=== PATIENT | female | born 1995 | race African-American/Black ===

== ENCOUNTER 2020-02-13 09:18 | Inpatient (IN) ==
[2020-02-13] MEDS ORDERED: OXYTOCIN 30 UNITS/500 ML BAG IV PRN ×2 (10:22→18:12)
--- NOTE | 2020-02-13 10:37 | Obstetrical Progress Note ---
Date of Service February 13, 2020 Subjective Admit Note 24 F P0010 at 38.1 weeks admitted with SROM at 0500 this AM with clear fluid confirmed with Amnisure and Nitrazine. Cervix 2/50/-2/vertex/anterior/firm. FHT Cat 1. GBS is positive with no allergies to PCN. EFW 7.5 lbs. Will start PCN when in active labor. Plans unmedicated labor at this time. Will ambulate this time. Results & Data ([facility]) Vital Signs (Past 12 Hours) Vital Signs Temp Pulse Resp BP 02/13/20 09:28 37.1 C 20 02/13/20 09:26 74 131/79
[2020-02-13 10:45] LABS: Hematocrit (blood only) 28.3 % (37-47); Hemoglobin 9.8 g/dL (12.0-16.0); Mean Corpuscular Hemoglobin 27.6 pg (25-34); Mean Corpuscular Volume 79.7 fL (80-100); Mean Platelet Volume 9.1 fL (7.4-10.4); Platelet Count 234 K/uL (130-400); RDW Coefficient of Variation 14.2 % (11.5-14.5); RDW Standard Deviation 40.9 fL (36.4-46.3); Red Blood Count 3.55 M/uL (4.2-5.4); White Blood Count 6.27 K/uL (4.8-10.8)
[2020-02-13] MEDS ORDERED: PENICILLIN G POTASSIUM 6 MU in DEXTROSE 5% 250 ML IV ONE (10:45)
[2020-02-13 10:57] LABS: Mean Corpuscular Hgb Conc 34.6 g/dL (32-36)
[2020-02-13 11:06] LABS: Amphetamines+Metham, Urine Neg (Neg); Barbiturates, Urine Neg (Neg); Benzodiazepine, Urine Neg (Neg); Cocaine, Urine Neg (Neg); MDMA (Ecstacy), Urine Neg (Neg); Methadone, Urine Neg (Neg); Opiate, Urine Neg (Neg); Phencyclidine, Urine Neg (Neg)
[2020-02-13] MEDS: LACTATED RINGER'S 1,000 ML IV PRN ×2 (11:29→23:29)
[2020-02-13] MEDS: PENICILLIN G POTASSIUM 3 MU in DEXTROSE 5% 100 ML IV PRN ×2 (15:33→19:21)
--- NOTE | 2020-02-13 18:40 | Obstetrical Progress Note ---
Date of Service February 13, 2020 Assessment & Plan Admission and Anticipated Discharge Date Admission Date: February 13, 2020 Physical Exam Genitourinary: OB Exam Abdomen: + irregular contractions Manual OB Exam: + cervical dilation 2 cm and 3 cm, + cervical effacement 50%, + station -2 and + amniotic fluid clear OB Exam Monitor Tracing: + external FHT monitor used, + external uterine monitor used, + category I and + normal FHT variability Will start Oxytocin to augment contractions Results & Data ([facility]) Vital Signs (Past 12 Hours) Vital Signs Temp Pulse Resp BP 02/13/20 18:35 36.9 C 02/13/20 18:34 81 130/64 02/13/20 17:32 37.0 C 71 20 130/64 02/13/20 15:38 37.0 C 02/13/20 13:46 37.1 C 74 20 119/68 02/13/20 11:20 36.8 C 02/13/20 09:28 37.1 C 02/13/20 09:26 74 131/79
[2020-02-13] MEDS ORDERED: fentaNYL citrate 100 MCG/2 ML VIAL ONE (23:08)
[2020-02-13] MEDS ORDERED: BUPIVACAINE 0.25% 30 ML VIAL ONE (23:08)
[2020-02-13] MEDS ORDERED: ePHEDrine sulfate 50 MG/ML AMP ONE (23:08)
[2020-02-13] MEDS ORDERED: fentaNYL 2MCG/ML ROPIV 1.25MG/ML 100 ML BAG EPI ONE (23:09)
--- NOTE | 2020-02-13 23:14 | Anesthesiology Consultation ---
Date of Service February 13, 2020 Assessment & Plan (1) Encounter for pre-operative examination: Chart Review Chart Review: Patient NOT seen in Pre Admission Testing and Acceptable Risk for Labor Epidural Consults Requested none ASA ASA2 Proposed Anesthesia Anesthesia Type: Labor Epidural Risk / Benefits Reviewed With: PT / POA / Parent / Guardian, Accepts Plan and Informed Consent Obtained History Height/Weight Height: 5 ft 3 in Weight: 99.337 kg Allergies Allergy/AdvReac Type Severity Reaction Status Date / Time bee venom protein (honey bee) Allergy Anaphylaxis Verified 02/13/20 10:00 bacitracin AdvReac Rash Verified 02/13/20 10:00 Medications Home Medications Medication Instructions Recorded Confirmed Last Taken vit-iron fum-folic ac 1 tab PO DAILY 02/13/20 02/13/20 02/12/20 08:00 [ Vitamin] Active Medications Generic Name Dose Route Start Last Admin Trade Name Freq PRN Reason Stop Dose Admin Lactated Ringer's 1,000 mls @ 125 mls/hr 02/13/20 10:22 02/13/20 23:41 Lr IV 02/15/20 10:21 125 mls/hr .Q8H PRN Infusion L&D Protocol Protocol Penicillin G Potassium 3 mu/ 106 mls @ 100 mls/hr 02/13/20 10:27 02/13/20 20:35 Dextrose IV 02/23/20 10:26 Infused Q4H PRN Infusion Give until delivery Oxytocin 30 units in 500 mls @ 11 mls/hr 02/13/20 18:12 02/13/20 22:10 Pitocin IV 02/15/20 18:11 0.66 units/hr .Q24H PRN 11 mls/hr Labor Induction/Augmentation Titration Protocol 0.66 UNITS/HR NPO Date Last Intake of Fluids: 02/13/20 Time Last Intake of Fluids: 23:16 Date Last Intake of Solids: 02/13/20 Time Last Intake of Solids: 17:30 Past Medical History Medical History No significant medical problems Exercise / Class Metabolic Activity II 4-5 Yardwork/Stairs/Walk up hill Past Surgical History Surgical History H/O wisdom tooth extraction Past Anesthesia History No Hx of Anesthesia Complications History of PONV No Hx of PONV Social History Smoking Status: Never smoker Hx Alcohol Use: No Hx Substance Use: Yes substance use type: marijuana Substance Use Type Other:: smoked marijuana a couple of time a week Last Used Substance: Days (ago) Last Used Substance Other:: unsure of when used last week Review of Systems Positive for scoliosis Patient denies history of abnormal bleeding or bleeding disorder. Patient den ies active use of anticoagulants other than low dose aspirin. Patient denies numbness, tingling or weakness in lower extremities. Physical Exam Vital Signs Last Vital Signs Temp 36.8 C 02/13/20 22:40 Pulse 64 02/13/20 22:18 Resp 18 02/13/20 22:40 BP 96/52 L 02/13/20 22:18 Constitutional not obese (Gravid uterus) ENMT Mouth: no TMJ abnormality and oral opening not small Thyromental Distance: > or= 3.5 Finger Breadths Mallampati Class: III Mouth / Teeth: 1. Retainer Neck normal visual inspection; neck extension not limited Respiratory normal respiratory effort Auscultation: lungs clear to auscultation bilaterally Cardiovascular Rate/Rhythm: regular rate and regular rhythm Heart Sounds: no murmur Neurologic moves all extremities Motor/Sensory: no sensory deficit Psychiatric Orientation: alert and oriented x 3 Testing Laboratory Results 02/13/20 10:36
[2020-02-14] MEDS: PENICILLIN G POTASSIUM 3 MU in DEXTROSE 5% 100 ML IV PRN ×5 (00:03→16:18)
[2020-02-14] MEDS ORDERED: fentaNYL 2MCG/ML ROPIV 1.25MG/ML 100 ML BAG EPI PRN ×2 (00:06→18:57)
[2020-02-14] MEDS ORDERED: NALOXONE HCL 0.4 MG/1 ML VIAL/CARP IV PRN ×2 (00:06→20:01)
[2020-02-14] MEDS ORDERED: ONDANSETRON INJ 2 MG/ML 2 ML VIAL IV PRN ×2 (00:06→20:01)
[2020-02-14] MEDS ORDERED: NALOXONE HCL 1 MG in SODIUM CHLORIDE 0.9% 1000ML 1,000 ML IV PRN ×2 (00:06→20:01)
[2020-02-14] MEDS ORDERED: DiphenhydrAMINE HCL 50 MG/ML VIAL IV PRN (00:06)
[2020-02-14] MEDS ORDERED: ePHEDrine sulfate 50 MG/ML AMP IV PRN ×2 (00:06→20:01)
[2020-02-14] MEDS: LACTATED RINGER'S 1,000 ML IV PRN ×3 (03:08→18:06)
--- NOTE | 2020-02-14 08:15 | Obstetrical Progress Note ---
Date of Service February 14, 2020 Assessment & Plan Admission and Anticipated Discharge Date Admission Date: February 13, 2020 Subjective Pt doing well SROM over 24 hrs GBS on antibx. Afebrile VE; 4-5/50/-3 FHR; CAT1 Ctx 1-2mins Pit; 20MU scalp and IUPC placed w/o difficulty Results & Data ([facility]) Vital Signs (Past 12 Hours) Vital Signs Temp Pulse Resp BP Pulse Ox 02/14/20 08:11 71 121/69 02/14/20 08:09 63 99 02/14/20 08:04 82 95 02/14/20 07:59 71 100 02/14/20 07:56 67 121/66 02/14/20 07:54 71 100 02/14/20 07:49 70 99 02/14/20 07:44 60 97 02/14/20 07:41 73 108/55 L 02/14/20 07:39 65 97 02/14/20 07:34 64 97 02/14/20 07:29 68 98 02/14/20 07:26 72 106/58 L 02/14/20 07:24 65 99 02/14/20 07:23 65 94 02/14/20 07:19 65 97 02/14/20 07:17 37.0 C 20 02/14/20 07:16 69 91 02/14/20 07:14 65 96 02/14/20 07:13 65 107/56 L 02/14/20 07:09 67 98 02/14/20 07:04 65 97 02/14/20 07:03 69 94 02/14/20 06:59 63 98 02/14/20 06:57 61 104/51 L 02/14/20 06:55 64 94 02/14/20 06:54 64 96 02/14/20 06:49 67 96 02/14/20 06:48 65 93 02/14/20 06:43 65 94 02/14/20 06:41 63 99/51 L 02/14/20 06:38 63 97 02/14/20 06:33 64 97 02/14/20 06:28 62 97 02/14/20 06:27 64 16 97/55 L 02/14/20 06:23 62 97 02/14/20 06:18 65 97 02/14/20 06:13 64 96 02/14/20 06:11 59 L 16 98/51 L 02/14/20 06:08 63 96 02/14/20 06:03 63 97 02/14/20 06:00 71 93 02/14/20 05:58 80 99 02/14/20 05:53 65 97 02/14/20 05:48 65 97 02/14/20 05:43 63 97 02/14/20 05:41 59 L 97/50 L 02/14/20 05:38 62 98 02/14/20 05:36 36.8 C 18 02/14/20 05:33 84 96/57 L 100 02/14/20 05:32 90 91 02/14/20 05:28 73 100 02/14/20 05:26 65 127/72 02/14/20 05:23 73 98 02/14/20 05:18 71 98 02/14/20 05:16 63 94 02/14/20 05:13 80 97 02/14/20 05:12 80 16 117/72 02/14/20 05:08 87 95 02/14/20 05:03 87 98 02/14/20 04:59 79 92 02/14/20 04:58 82 98 02/14/20 04:56 66 114/69 02/14/20 04:53 72 98 02/14/20 04:48 66 100 02/14/20 04:44 85 89 L 02/14/20 04:43 67 99 02/14/20 04:38 64 97 02/14/20 04:33 63 98 02/14/20 04:28 65 96 02/14/20 04:26 65 119/63 02/14/20 04:23 66 96 02/14/20 04:18 65 96 02/14/20 04:13 78 98 02/14/20 04:11 36.8 C 70 16 116/63 02/14/20 04:08 65 97 02/14/20 04:03 64 97 02/14/20 03:58 78 100 02/14/20 03:57 63 16 119/68 02/14/20 03:53 66 96 02/14/20 03:48 68 96 02/14/20 03:43 66 96 02/14/20 03:42 66 16 119/64 02/14/20 03:38 67 96 02/14/20 03:33 70 97 02/14/20 03:30 18 02/14/20 03:28 59 L 99 02/14/20 03:26 61 116/62 02/14/20 03:23 79 99 02/14/20 03:18 69 100 02/14/20 03:13 67 99 02/14/20 03:08 76 99 02/14/20 03:03 65 94 02/14/20 03:00 16 02/14/20 02:58 68 94 02/14/20 02:57 70 117/63 94 02/14/20 02:53 67 96 02/14/20 02:48 64 96 02/14/20 02:43 67 95 02/14/20 02:42 69 118/65 02/14/20 02:38 66 96 02/14/20 02:33 67 97 02/14/20 02:28 60 98 02/14/20 02:26 61 16 111/67 02/14/20 02:23 68 100 02/14/20 02:18 64 100 02/14/20 02:13 75 98 02/14/20 02:11 69 105/55 L 02/14/20 02:10 36.5 C 16 02/14/20 02:08 61 96 02/14/20 02:07 61 94 02/14/20 02:03 61 95 02/14/20 01:58 75 96 02/14/20 01:56 72 94 02/14/20 01:53 85 99 02/14/20 01:48 62 95 02/14/20 01:43 64 96 02/14/20 01:38 63 95 02/14/20 01:37 62 94 02/14/20 01:33 63 94 02/14/20 01:28 64 95 02/14/20 01:26 60 91/51 L 02/14/20 01:23 64 95 02/14/20 01:18 64 96 02/14/20 01:13 63 96 02/14/20 01:11 61 16 92/51 L 02/14/20 01:08 64 97 02/14/20 01:03 63 97 02/14/20 00:58 76 98 02/14/20 00:56 67 16 97/48 L 02/14/20 00:53 86 97 02/14/20 00:48 75 98 07/13/20 00:43 61 97 02/14/20 00:40 66 101/48 L 02/14/20 00:38 68 96 02/14/20 00:35 64 18 94/47 L 02/14/20 00:33 67 98 02/14/20 00:32 18 02/14/20 00:31 65 98/46 L 02/14/20 00:28 69 99 02/14/20 00:26 74 18 98/47 L 02/14/20 00:23 71 98 02/14/20 00:19 75 18 110/54 L 02/14/20 00:18 77 100 02/14/20 00:17 64 101/51 L 02/14/20 00:15 74 105/56 L 02/14/20 00:13 82 102/51 L 99 02/14/20 00:11 91 H 105/54 L 02/14/20 00:09 81 105/56 L 02/14/20 00:08 82 99 02/14/20 00:07 36.8 C 78 18 108/55 L 02/14/20 00:05 71 102/57 L 02/14/20 00:03 75 108/62 100 02/14/20 00:01 74 78/42 L 02/13/20 23:58 68 93/50 L 98 02/13/20 23:57 63 64/43 L 02/13/20 23:53 73 98/51 L 99 02/13/20 23:51 90 18 103/51 L 02/13/20 23:48 84 98 02/13/20 23:47 86 18 114/67 02/13/20 23:44 79 18 119/73 02/13/20 23:43 86 97 02/13/20 23:38 87 99 02/13/20 23:33 84 99 02/13/20 23:28 92 H 99 02/13/20 23:24 99 H 90 02/13/20 23:23 91 H 100 02/13/20 23:18 73 99 02/13/20 23:17 75 18 116/74 02/13/20 22:40 36.8 C 18 02/13/20 22:18 64 16 96/52 L 02/13/20 21:17 90 18 125/81 07/12/20 20:47 36.8 C 07/12/20 20:18 78 18 112/56 L
[2020-02-14] MEDS ORDERED: fentaNYL 2MCG/ML ROPIV 1.25MG/ML 100 ML BAG EPI ONE ×2 (09:13→14:52)
[2020-02-14] MEDS ORDERED: Nursing to Pharmacy Communication SCH (14:15)
[2020-02-14] MEDS ORDERED: BUPIVACAINE 0.25% 30 ML VIAL ONE (17:55)
[2020-02-14] MEDS ORDERED: Nursing to Pharmacy Communication ONE (18:45)
--- NOTE | 2020-02-14 19:27 | Obstetrical Progress Note ---
Date of Service February 14, 2020 Assessment & Plan Admission and Anticipated Discharge Date Admission Date: February 13, 2020 Subjective Pt doing well FHR; CAT1 Ctx; 2-3 mins VE 4-5/50/-3 Pit 26m Cervical exam is unchanged Dx; Failure to progress Discussed c/sec with pt risk and benefits discussed consent signed Results & Data ([facility]) Vital Signs (Past 12 Hours) Vital Signs Temp Pulse Resp BP Pulse Ox 02/14/20 19:22 85 117/65 02/14/20 19:20 84 100 02/14/20 19:18 83 129/69 02/14/20 19:15 94 H 98 02/14/20 19:14 110 H 94 02/14/20 19:12 108 H 116/76 02/14/20 19:10 37.1 C 89 20 99 02/14/20 19:07 93 H 93 02/14/20 19:06 91 H 126/59 L 02/14/20 19:05 100 H 100 02/14/20 19:02 81 117/57 L 02/14/20 19:00 86 99 02/14/20 18:59 93 H 117/60 02/14/20 18:58 107 H 93 02/14/20 18:55 87 96 02/14/20 18:53 91 H 91 02/14/20 18:51 96 H 129/65 02/14/20 18:50 100 H 96 02/14/20 18:45 84 92 02/14/20 18:42 74 116/57 L 02/14/20 18:40 76 100 02/14/20 18:37 70 114/55 L 02/14/20 18:35 72 100 02/14/20 18:32 71 114/59 L 02/14/20 18:30 84 100 02/14/20 18:28 88 140/63 02/14/20 18:27 95 H 91 02/14/20 18:25 78 100 02/14/20 18:21 68 119/60 02/14/20 18:20 74 99 02/14/20 18:16 64 123/56 L 02/14/20 18:15 71 99 02/14/20 18:12 66 116/56 L 02/14/20 18:10 71 100 02/14/20 18:07 65 115/56 L 02/14/20 18:05 74 100 07/13/20 18:01 68 116/59 L 02/14/20 18:00 79 85 L 02/14/20 17:59 75 92 02/14/20 17:56 86 116/57 L 02/14/20 17:55 71 100 02/14/20 17:50 69 100 02/14/20 17:45 69 100 02/14/20 17:42 76 135/73 02/14/20 17:40 75 100 02/14/20 17:35 72 100 02/14/20 17:30 71 100 02/14/20 17:27 71 120/59 L 02/14/20 17:25 66 99 02/14/20 17:20 76 100 02/14/20 17:15 76 100 02/14/20 17:13 85 92 02/14/20 17:11 74 130/70 02/14/20 17:10 71 100 02/14/20 17:05 79 100 02/14/20 17:01 79 92 02/14/20 17:00 71 94 02/14/20 16:56 81 128/73 02/14/20 16:54 78 79 L 02/14/20 16:53 75 91 02/14/20 16:49 72 100 02/14/20 16:46 97 H 89 L 02/14/20 16:44 96 H 100 02/14/20 16:42 74 129/77 02/14/20 16:39 74 98 02/14/20 16:34 74 100 02/14/20 16:31 68 139/68 02/14/20 16:29 69 20 100 02/14/20 16:28 96 H 196/72 H 02/14/20 16:24 77 95 02/14/20 16:19 81 96 02/14/20 16:14 79 97 02/14/20 16:11 80 119/71 02/14/20 16:09 78 97 02/14/20 16:04 85 98 02/14/20 16:00 20 02/14/20 15:59 80 98 02/14/20 15:56 73 117/61 02/14/20 15:54 67 97 02/14/20 15:52 76 126/66 02/14/20 15:50 93 H 90 02/14/20 15:49 93 H 100 02/14/20 15:44 62 97 02/14/20 15:42 103 H 149/118 H 02/14/20 15:39 71 98 02/14/20 15:34 76 100 02/14/20 15:29 73 20 98 02/14/20 15:24 71 99 02/14/20 15:22 71 93 02/14/20 15:19 69 99 02/14/20 15:14 87 99 02/14/20 15:12 37.1 C 74 123/69 02/14/20 15:09 81 98 02/14/20 15:04 82 98 02/14/20 15:00 20 02/14/20 14:59 70 100 02/14/20 14:57 80 123/72 02/14/20 14:54 72 100 02/14/20 14:49 68 99 02/14/20 14:44 83 99 02/14/20 14:39 70 100 02/14/20 14:34 74 100 02/14/20 14:30 20 02/14/20 14:29 70 94 02/14/20 14:26 73 125/77 02/14/20 14:24 73 100 02/14/20 14:21 74 93 02/14/20 14:19 84 100 02/14/20 14:14 68 100 02/14/20 14:09 74 100 02/14/20 14:05 72 91 02/14/20 14:04 70 100 02/14/20 14:00 81 90 02/14/20 13:59 83 20 100 02/14/20 13:56 83 125/79 02/14/20 13:54 74 98 02/14/20 13:49 68 99 02/14/20 13:44 72 99 02/14/20 13:42 66 122/74 02/14/20 13:39 74 100 02/14/20 13:34 75 99 02/14/20 13:29 83 100 02/14/20 13:28 77 91 02/14/20 13:27 73 107/55 L 02/14/20 13:24 65 99 02/14/20 13:22 37.1 C 20 02/14/20 13:19 70 100 02/14/20 13:14 65 100 02/14/20 13:13 66 111/61 02/14/20 13:12 70 92 02/14/20 13:09 66 100 02/14/20 13:04 64 100 02/14/20 12:59 70 100 02/14/20 12:54 65 100 02/14/20 12:53 73 91 02/14/20 12:49 75 96 02/14/20 12:44 67 100 02/14/20 12:41 78 102/62 02/14/20 12:39 59 L 100 02/14/20 12:34 63 100 02/14/20 12:31 20 02/14/20 12:29 70 100 02/14/20 12:26 64 110/58 L 02/14/20 12:24 60 100 02/14/20 12:19 60 97 02/14/20 12:14 62 98 02/14/20 12:12 59 L 104/59 L 02/14/20 12:09 58 L 98 02/14/20 12:04 61 98 02/14/20 12:01 20 02/14/20 11:59 70 98 02/14/20 11:56 60 96/54 L 02/14/20 11:54 63 100 02/14/20 11:49 67 100 02/14/20 11:44 62 100 02/14/20 11:41 74 103/59 L 02/14/20 11:39 64 98 02/14/20 11:34 60 97 02/14/20 11:31 20 02/14/20 11:29 60 96 02/14/20 11:26 68 97/55 L 02/14/20 11:24 60 97 02/14/20 11:19 61 95 02/14/20 11:15 37.2 C 20 02/14/20 11:14 78 99 02/14/20 11:13 62 100/52 L 02/14/20 11:09 65 97 02/14/20 11:04 63 97 02/14/20 11:00 20 02/14/20 10:59 62 97 02/14/20 10:56 63 100/53 L 02/14/20 10:54 69 99 02/14/20 10:49 63 98 02/14/20 10:44 68 99 02/14/20 10:42 67 99/51 L 02/14/20 10:39 76 99 02/14/20 10:34 66 97 02/14/20 10:30 20 02/14/20 10:29 67 98 02/14/20 10:26 75 109/58 L 02/14/20 10:24 70 99 02/14/20 10:19 85 99 02/14/20 10:14 78 99 02/14/20 10:12 88 116/56 L 02/14/20 10:09 91 H 99 02/14/20 10:04 79 100 02/14/20 10:00 20 02/14/20 09:59 87 20 99 02/14/20 09:57 78 138/79 02/14/20 09:54 75 100 02/14/20 09:53 78 91 02/14/20 09:49 81 100 02/14/20 09:45 76 94 02/14/20 09:44 74 95 02/14/20 09:42 80 129/66 02/14/20 09:39 79 100 02/14/20 09:34 69 100 02/14/20 09:30 37.0 C 18 02/14/20 09:29 78 100 02/14/20 09:27 72 102/78 02/14/20 09:24 69 100 02/14/20 09:21 70 91 02/14/20 09:19 67 100 02/14/20 09:14 76 99 02/14/20 09:11 84 115/87 89 L 02/14/20 09:09 81 99 02/14/20 09:04 72 96 02/14/20 09:02 78 88 L 02/14/20 09:00 18 02/14/20 08:59 73 100 02/14/20 08:56 84 132/83 02/14/20 08:54 79 100 02/14/20 08:53 84 94 02/14/20 08:49 75 100 02/14/20 08:45 20 02/14/20 08:44 71 100 02/14/20 08:43 69 89 L 02/14/20 08:41 69 130/74 02/14/20 08:39 76 98 02/14/20 08:34 80 100 02/14/20 08:30 20 02/14/20 08:29 72 100 02/14/20 08:26 77 124/75 02/14/20 08:24 72 100 02/14/20 08:19 73 98 02/14/20 08:14 78 99 02/14/20 08:11 71 121/69 02/14/20 08:09 63 99 02/14/20 08:04 82 95 02/14/20 08:00 20 02/14/20 07:59 71 100 02/14/20 07:56 67 121/66 02/14/20 07:54 71 100 02/14/20 07:49 70 99 02/14/20 07:44 60 97 02/14/20 07:41 73 108/55 L 02/14/20 07:39 65 97 02/14/20 07:34 64 97 02/14/20 07:31 20 02/14/20 07:29 68 98 02/14/20 07:26 72 106/58 L
--- NOTE | 2020-02-14 19:29 | History & Physical Bridge Note ---
Date of Service February 14, 2020 History & Physical Bridge Note I have examined the patient, reviewed the History & Physical and in the interval since the performance of the History & Physical I have noted the following changes of clinical significance: no changes noted
[2020-02-14] MEDS ORDERED: LACTATED RINGER'S 1,000 ML IV SCH ×3 (19:30→21:30)
[2020-02-14] MEDS ORDERED: CEFAZOLIN 2000MG 2,000 MG/15 ML SYR IV SCH (19:45)
[2020-02-14] MEDS ORDERED: CITRIC ACID/SODIUM CITRATE 15 ML UDC PO SCH (19:45)
[2020-02-14] MEDS ORDERED: CITRIC ACID/SODIUM CITRATE 15 ML UDC ONE (19:47)
[2020-02-14] MEDS ORDERED: MoRPHine SULFATE PF 1 MG/ML 10 ML AMP/VIAL EPI ONE (20:01)
[2020-02-14] MEDS ORDERED: LACTATED RINGER'S 500 ML IV PRN (20:01)
[2020-02-14] MEDS ORDERED: NALOXONE HCL 0.08 MG in SYRINGE 1.8 ML IV PRN (20:01)
[2020-02-14] MEDS ORDERED: HYDROmorphone INJ 0.5 MG/0.5 ML SYR IV PRN (20:01)
[2020-02-14] MEDS ORDERED: LIDOCAINE/EPINEPHRINE 2% 1:200,000 20 ML SDV ONE ×2 (20:06→20:29)
[2020-02-14] MEDS ORDERED: DC INTRASPINAL MORPHINE SCH (20:15)
[2020-02-14] MEDS ORDERED: SODIUM CHLORIDE 0.9% 1000ML 1,000 ML IV SCH (20:15)
[2020-02-14] MEDS ORDERED: NO NARCOTICS OR SEDATIVES SCH (20:15)
[2020-02-14] MEDS ORDERED: OXYTOCIN 10 UNITS/ML VIAL ONE ×2 (20:20→20:52)
[2020-02-14] MEDS ORDERED: fentaNYL citrate 100 MCG/2 ML VIAL ONE (20:23)
[2020-02-14] MEDS ORDERED: MoRPHine SULFATE PF 1 MG/ML 10 ML AMP/VIAL ONE (20:29)
[2020-02-14] MEDS ORDERED: PHENYLEPHRINE 100MCG/ML 5ML SYR ONE (20:39)
[2020-02-14] MEDS ORDERED: ONDANSETRON INJ 2 MG/ML 2 ML VIAL ONE (20:41)
[2020-02-14] MEDS ORDERED: METHYLERGONOVINE MALEATE 0.2 MG/ML AMP ONE (20:52)
[2020-02-14] MEDS ORDERED: SENNA 8.6 MG TAB PO PRN (21:27)
[2020-02-14] MEDS ORDERED: miSOPROStoL 200 MCG TAB PR ONE (21:27)
[2020-02-14] MEDS ORDERED: BENZOCAINE 20% AER SPR 82.5 GM CAN EXT PRN (21:27)
[2020-02-14] MEDS ORDERED: HYDROCORTISONE ACETATE 25 MG SUPP PR PRN (21:27)
[2020-02-14] MEDS ORDERED: MAGNESIUM HYDROXIDE SUSP 30 ML UDC PO PRN (21:27)
[2020-02-14] MEDS ORDERED: SUPERCREAM 0.870% 15 GM JAR EXT PRN (21:27)
[2020-02-14] MEDS ORDERED: DIPHTHERIA/TETANUS/PERTUSSIS 0.5 ML SYR/VIAL IM ONE (21:27)
--- NOTE | 2020-02-14 21:27 | Post Operative Brief Note ---
Immediate Post Op Note v1 Date of Surgery February 14, 2020 Pre & Post Diagnosis Operation Date: 02/14/20 19:40 Pre-Op Diagnosis: Failure to progress Post-Op Diagnosis: Failure to progress I identified the patient and participated in the time-out.: Yes Procedure Operation Date: 02/14/20 19:40 Actual Procedures p Section in LD(Bilateral) - Td Nuno MD Surgeon Td Nuno MD Frame Cleaner zuleyma galeana RN Estimated Blood Loss 800 Findings Consistent with Post-Op Diagnosis Drains Strong Catheter (Inserted prior to procedure and output monitored by anesthesia )
[2020-02-14] MEDS: KETOROLAC 30 MG/ML VIAL IV PRN (21:48)
[2020-02-14 21:50] LABS: CO2 Cord Arterial Blood 61 mmHg (39.1-73.5); HCO3 Cord Arterial Blood 26 mmol/L (19.7-28.5); PO2 Cord Arterial Blood 22 mmHg (4.1-31.7); pH Cord Arterial Blood 7.24 (7.1-7.38)
[2020-02-14 21:54] LABS: Base Excess Cord Venous Blood -2.1 mEq/L (-7.7-1.9); Cord Venous Blood HCO3 24 mmol/L (18.4-26.8); Cord Venous Blood PCO2 44 mmHg (30.4-57.2); Cord Venous Blood PO2 28 mmHg (14.1-43.3); Cord Venous Blood pH 7.35 (7.20-7.44); O2 Saturation Cord Venous Bld 60.5 % (<68); Oxygen Sat Cord Arterial Blood < 60.0 % (<60)
[2020-02-14] MEDS: OXYTOCIN 20 UNITS in LACTATED RINGER'S 1,000 ML IV SCH (23:08)
[2020-02-14] MEDS: DiphenhydrAMINE HCL 50 MG/ML VIAL IV PRN (23:20)
--- NOTE | 2020-02-14 23:25 | Anesthesiology Progress Note ---
Date of Service February 14, 2020 Anesthesia Post Procedure Vital Signs Vital Signs: Temp Pulse Resp BP Pulse Ox 02/14/20 23:21 91 H 93 02/14/20 23:16 111 H 108/67 92 02/14/20 23:11 92 H 93 02/14/20 23:10 90 94 02/14/20 23:06 97 H 127/63 96 02/14/20 23:05 92 H 93 02/14/20 23:01 97 H 87 L 02/14/20 22:59 102 H 93 02/14/20 22:56 100 H 18 125/62 96 02/14/20 22:52 102 H 91 02/14/20 22:51 103 H 97 02/14/20 22:46 98 H 137/89 97 02/14/20 22:41 99 H 97 02/14/20 22:36 96 H 96 02/14/20 22:31 96 H 98 02/14/20 22:28 101 H 114/64 02/14/20 22:26 109 H 18 96 02/14/20 22:21 100 H 97 02/14/20 22:16 105 H 18 98 02/14/20 22:11 92 H 98 02/14/20 22:06 118 H 18 136/76 99 02/14/20 22:01 119 H 98 02/14/20 21:57 110 H 134/74 02/14/20 21:56 108 H 20 99 02/14/20 21:51 108 H 98 02/14/20 21:49 101 H 122/51 L 02/14/20 21:46 115 H 18 97 02/14/20 21:41 96 H 98 02/14/20 21:37 101 H 110/49 L 02/14/20 21:36 94 H 20 96 02/14/20 21:31 96 H 98 02/14/20 21:27 98 H 92 02/14/20 21:26 37.1 C 100 H 20 115/63 94 02/14/20 20:01 104 H 114/55 L 98 02/14/20 19:56 82 127/61 100 02/14/20 19:54 84 92 02/14/20 19:51 83 127/56 L 100 02/14/20 19:46 81 126/60 100 02/14/20 19:42 82 122/64 02/14/20 19:41 84 99 02/14/20 19:40 92 H 94 02/14/20 19:36 83 117/71 100 02/14/20 19:32 72 113/63 02/14/20 19:31 77 100 02/14/20 19:26 83 89 L 02/14/20 19:25 86 99 02/14/20 19:22 85 117/65 02/14/20 19:20 84 100 02/14/20 19:18 83 129/69 02/14/20 19:15 94 H 98 02/14/20 19:14 110 H 94 02/14/20 19:12 108 H 116/76 02/14/20 19:10 37.1 C 89 20 99 02/14/20 19:07 93 H 93 02/14/20 19:06 91 H 126/59 L 02/14/20 19:05 100 H 100 02/14/20 19:02 81 117/57 L 02/14/20 19:00 86 99 02/14/20 18:59 93 H 117/60 02/14/20 18:58 107 H 93 02/14/20 18:55 87 96 02/14/20 18:53 91 H 91 02/14/20 18:51 96 H 129/65 02/14/20 18:50 100 H 96 02/14/20 18:45 84 92 02/14/20 18:42 74 116/57 L 02/14/20 18:40 76 100 02/14/20 18:37 70 114/55 L 02/14/20 18:35 72 100 02/14/20 18:32 71 114/59 L 02/14/20 18:30 84 100 02/14/20 18:28 88 140/63 02/14/20 18:27 95 H 91 02/14/20 18:25 78 100 02/14/20 18:21 68 119/60 02/14/20 18:20 74 99 02/14/20 18:16 64 123/56 L 02/14/20 18:15 71 99 02/14/20 18:12 66 116/56 L 02/14/20 18:10 71 100 02/14/20 18:07 65 115/56 L 02/14/20 18:05 74 100 02/14/20 18:01 68 116/59 L 02/14/20 18:00 79 85 L 02/14/20 17:59 75 92 02/14/20 17:56 86 116/57 L 02/14/20 17:55 71 100 02/14/20 17:50 69 100 02/14/20 17:45 69 100 02/14/20 17:42 76 135/73 02/14/20 17:40 75 100 02/14/20 17:35 72 100 02/14/20 17:30 71 100 02/14/20 17:27 71 120/59 L 02/14/20 17:25 66 99 02/14/20 17:20 76 100 02/14/20 17:15 76 100 02/14/20 17:13 85 92 02/14/20 17:11 74 130/70 02/14/20 17:10 71 100 02/14/20 17:05 79 100 02/14/20 17:01 79 92 02/14/20 17:00 71 94 02/14/20 16:56 81 128/73 02/14/20 16:54 78 79 L 02/14/20 16:53 75 91 02/14/20 16:49 72 100 02/14/20 16:46 97 H 89 L 02/14/20 16:44 96 H 100 02/14/20 16:42 74 129/77 02/14/20 16:39 74 98 02/14/20 16:34 74 100 02/14/20 16:31 68 139/68 02/14/20 16:29 69 20 100 02/14/20 16:28 96 H 196/72 H 02/14/20 16:24 77 95 02/14/20 16:19 81 96 02/14/20 16:14 79 97 02/14/20 16:11 80 119/71 02/14/20 16:09 78 97 02/14/20 16:04 85 98 02/14/20 16:00 20 02/14/20 15:59 80 98 02/14/20 15:56 73 117/61 02/14/20 15:54 67 97 02/14/20 15:52 76 126/66 02/14/20 15:50 93 H 90 02/14/20 15:49 93 H 100 02/14/20 15:44 62 97 02/14/20 15:42 103 H 149/118 H 02/14/20 15:39 71 98 02/14/20 15:34 76 100 02/14/20 15:29 73 20 98 02/14/20 15:24 71 99 02/14/20 15:22 71 93 02/14/20 15:19 69 99 02/14/20 15:14 87 99 02/14/20 15:12 37.1 C 74 123/69 02/14/20 15:09 81 98 02/14/20 15:04 82 98 02/14/20 15:00 20 02/14/20 14:59 70 100 02/14/20 14:57 80 123/72 02/14/20 14:54 72 100 02/14/20 14:49 68 99 02/14/20 14:44 83 99 02/14/20 14:39 70 100 02/14/20 14:34 74 100 02/14/20 14:30 20 02/14/20 14:29 70 94 02/14/20 14:26 73 125/77 02/14/20 14:24 73 100 02/14/20 14:21 74 93 02/14/20 14:19 84 100 02/14/20 14:14 68 100 02/14/20 14:09 74 100 02/14/20 14:05 72 91 02/14/20 14:04 70 100 02/14/20 14:00 81 90 02/14/20 13:59 83 20 100 02/14/20 13:56 83 125/79 02/14/20 13:54 74 98 02/14/20 13:49 68 99 02/14/20 13:44 72 99 02/14/20 13:42 66 122/74 02/14/20 13:39 74 100 02/14/20 13:34 75 99 02/14/20 13:29 83 100 02/14/20 13:28 77 91 02/14/20 13:27 73 107/55 L 02/14/20 13:24 65 99 02/14/20 13:22 37.1 C 20 02/14/20 13:19 70 100 02/14/20 13:14 65 100 02/14/20 13:13 66 111/61 02/14/20 13:12 70 92 02/14/20 13:09 66 100 02/14/20 13:04 64 100 02/14/20 12:59 70 100 02/14/20 12:54 65 100 02/14/20 12:53 73 91 02/14/20 12:49 75 96 02/14/20 12:44 67 100 02/14/20 12:41 78 102/62 02/14/20 12:39 59 L 100 02/14/20 12:34 63 100 02/14/20 12:31 20 02/14/20 12:29 70 100 02/14/20 12:26 64 110/58 L 02/14/20 12:24 60 100 02/14/20 12:19 60 97 02/14/20 12:14 62 98 02/14/20 12:12 59 L 104/59 L 02/14/20 12:09 58 L 98 02/14/20 12:04 61 98 02/14/20 12:01 20 02/14/20 11:59 70 98 02/14/20 11:56 60 96/54 L 02/14/20 11:54 63 100 02/14/20 11:49 67 100 02/14/20 11:44 62 100 02/14/20 11:41 74 103/59 L 02/14/20 11:39 64 98 02/14/20 11:34 60 97 02/14/20 11:31 20 02/14/20 11:29 60 96 02/14/20 11:26 68 97/55 L 02/14/20 11:24 60 97 02/14/20 11:19 61 95 02/14/20 11:15 37.2 C 20 02/14/20 11:14 78 99 02/14/20 11:13 62 100/52 L 02/14/20 11:09 65 97 02/14/20 11:04 63 97 02/14/20 11:00 20 02/14/20 10:59 62 97 02/14/20 10:56 63 100/53 L 02/14/20 10:54 69 99 02/14/20 10:49 63 98 02/14/20 10:44 68 99 02/14/20 10:42 67 99/51 L 02/14/20 10:39 76 99 02/14/20 10:34 66 97 02/14/20 10:30 20 02/14/20 10:29 67 98 02/14/20 10:26 75 109/58 L 02/14/20 10:24 70 99 02/14/20 10:19 85 99 02/14/20 10:14 78 99 02/14/20 10:12 88 116/56 L 02/14/20 10:09 91 H 99 02/14/20 10:04 79 100 02/14/20 10:00 20 02/14/20 09:59 87 20 99 02/14/20 09:57 78 138/79 02/14/20 09:54 75 100 02/14/20 09:53 78 91 02/14/20 09:49 81 100 02/14/20 09:45 76 94 02/14/20 09:44 74 95 02/14/20 09:42 80 129/66 02/14/20 09:39 79 100 02/14/20 09:34 69 100 02/14/20 09:30 37.0 C 18 02/14/20 09:29 78 100 02/14/20 09:27 72 102/78 02/14/20 09:24 69 100 02/14/20 09:21 70 91 02/14/20 09:19 67 100 02/14/20 09:14 76 99 02/14/20 09:11 84 115/87 89 L 02/14/20 09:09 81 99 02/14/20 09:04 72 96 02/14/20 09:02 78 88 L 02/14/20 09:00 18 02/14/20 08:59 73 100 02/14/20 08:56 84 132/83 02/14/20 08:54 79 100 02/14/20 08:53 84 94 02/14/20 08:49 75 100 02/14/20 08:45 20 02/14/20 08:44 71 100 02/14/20 08:43 69 89 L 02/14/20 08:41 69 130/74 02/14/20 08:39 76 98 02/14/20 08:34 80 100 02/14/20 08:30 20 02/14/20 08:29 72 100 02/14/20 08:26 77 124/75 02/14/20 08:24 72 100 02/14/20 08:19 73 98 02/14/20 08:14 78 99 0713/20 08:11 71 121/69 02/14/20 08:09 63 99 02/14/20 08:04 82 95 02/14/20 08:00 20 02/14/20 07:59 71 100 02/14/20 07:56 67 121/66 02/14/20 07:54 71 100 02/14/20 07:49 70 99 02/14/20 07:44 60 97 02/14/20 07:41 73 108/55 L 02/14/20 07:39 65 97 02/14/20 07:34 64 97 02/14/20 07:31 20 02/14/20 07:29 68 98 02/14/20 07:26 72 106/58 L 02/14/20 07:24 65 99 02/14/20 07:23 65 94 02/14/20 07:19 65 97 02/14/20 07:17 37.0 C 20 02/14/20 07:16 69 91 02/14/20 07:15 20 02/14/20 07:14 65 96 02/14/20 07:13 65 107/56 L 02/14/20 07:09 67 98 02/14/20 07:04 65 97 02/14/20 07:03 69 94 02/14/20 06:59 63 98 02/14/20 06:57 61 104/51 L 02/14/20 06:55 64 94 02/14/20 06:54 64 96 02/14/20 06:49 67 96 02/14/20 06:48 65 93 02/14/20 06:43 65 94 02/14/20 06:41 63 99/51 L 02/14/20 06:38 63 97 02/14/20 06:33 64 97 02/14/20 06:28 62 97 02/14/20 06:27 64 16 97/55 L 02/14/20 06:23 62 97 02/14/20 06:18 65 97 02/14/20 06:13 64 96 02/14/20 06:11 59 L 16 98/51 L 02/14/20 06:08 63 96 02/14/20 06:03 63 97 02/14/20 06:00 71 93 02/14/20 05:58 80 99 02/14/20 05:53 65 97 02/14/20 05:48 65 97 02/14/20 05:43 63 97 02/14/20 05:41 59 L 97/50 L 02/14/20 05:38 62 98 02/14/20 05:36 36.8 C 18 02/14/20 05:33 84 96/57 L 100 02/14/20 05:32 90 91 02/14/20 05:28 73 100 02/14/20 05:26 65 127/72 02/14/20 05:23 73 98 02/14/20 05:18 71 98 02/14/20 05:16 63 94 02/14/20 05:13 80 97 02/14/20 05:12 80 16 117/72 02/14/20 05:08 87 95 02/14/20 05:03 87 98 02/14/20 04:59 79 92 02/14/20 04:58 82 98 02/14/20 04:56 66 114/69 02/14/20 04:53 72 98 02/14/20 04:48 66 100 02/14/20 04:44 85 89 L 02/14/20 04:43 67 99 02/14/20 04:38 64 97 02/14/20 04:33 63 98 02/14/20 04:28 65 96 02/14/20 04:26 65 119/63 02/14/20 04:23 66 96 02/14/20 04:18 65 96 02/14/20 04:13 78 98 02/14/20 04:11 36.8 C 70 16 116/63 02/14/20 04:08 65 97 02/14/20 04:03 64 97 02/14/20 03:58 78 100 02/14/20 03:57 63 16 119/68 02/14/20 03:53 66 96 02/14/20 03:48 68 96 02/14/20 03:43 66 96 02/14/20 03:42 66 16 119/64 02/14/20 03:38 67 96 02/14/20 03:33 70 97 02/14/20 03:30 18 02/14/20 03:28 59 L 99 02/14/20 03:26 61 116/62 02/14/20 03:23 79 99 02/14/20 03:18 69 100 02/14/20 03:13 67 99 02/14/20 03:08 76 99 02/14/20 03:03 65 94 02/14/20 03:00 16 02/14/20 02:58 68 94 02/14/20 02:57 70 117/63 94 02/14/20 02:53 67 96 02/14/20 02:48 64 96 02/14/20 02:43 67 95 02/14/20 02:42 69 118/65 02/14/20 02:38 66 96 02/14/20 02:33 67 97 02/14/20 02:28 60 98 02/14/20 02:26 61 16 111/67 02/14/20 02:23 68 100 02/14/20 02:18 64 100 02/14/20 02:13 75 98 02/14/20 02:11 69 105/55 L 02/14/20 02:10 36.5 C 16 02/14/20 02:08 61 96 02/14/20 02:07 61 94 02/14/20 02:03 61 95 02/14/20 01:58 75 96 02/14/20 01:56 72 94 02/14/20 01:53 85 99 02/14/20 01:48 62 95 02/14/20 01:43 64 96 02/14/20 01:38 63 95 02/14/20 01:37 62 94 02/14/20 01:33 63 94 02/14/20 01:28 64 95 02/14/20 01:26 60 91/51 L 02/14/20 01:23 64 95 02/14/20 01:18 64 96 02/14/20 01:13 63 96 02/14/20 01:11 61 16 92/51 L 02/14/20 01:08 64 97 02/14/20 01:03 63 97 02/14/20 00:58 76 98 02/14/20 00:56 67 16 97/48 L 02/14/20 00:53 86 97 02/14/20 00:48 75 98 02/14/20 00:43 61 97 02/14/20 00:40 66 101/48 L 02/14/20 00:38 68 96 02/14/20 00:35 64 18 94/47 L 02/14/20 00:33 67 98 02/14/20 00:32 18 02/14/20 00:31 65 98/46 L 02/14/20 00:28 69 99 02/14/20 00:26 74 18 98/47 L 02/14/20 00:23 71 98 02/14/20 00:19 75 18 110/54 L 02/14/20 00:18 77 100 02/14/20 00:17 64 101/51 L 02/14/20 00:15 74 105/56 L 02/14/20 00:13 82 102/51 L 99 02/14/20 00:11 91 H 105/54 L 02/14/20 00:09 81 105/56 L 02/14/20 00:08 82 99 02/14/20 00:07 36.8 C 78 18 108/55 L 02/14/20 00:05 71 102/57 L 02/14/20 00:03 75 108/62 100 02/14/20 00:01 74 78/42 L 02/13/20 23:58 68 93/50 L 98 02/13/20 23:57 63 64/43 L 02/13/20 23:53 73 98/51 L 99 02/13/20 23:51 90 18 103/51 L 02/13/20 23:48 84 98 02/13/20 23:47 86 18 114/67 02/13/20 23:44 79 18 119/73 02/13/20 23:43 86 97 02/13/20 23:38 87 99 02/13/20 23:33 84 99 02/13/20 23:28 92 H 99 Pain Intensity Back: Pain Intensity: 2 Lower Abdomen: Pain Intensity: 2 Transfer of Care Handoff Completed per policy Notes Mental Status: alert / awake / arousable Patient Amnestic to Procedure: Yes Nausea / Vomiting: adequately controlled Pain: adequately controlled Airway Patency, RR, SpO2: stable & adequate BP & HR: stable & adequate Hydration State: stable & adequate Neuraxial Anesthesia: was administered and sensory block is resolving Anesthetic Complications: no major complications apparent and Pt Satisfied with anesthetic care
[2020-02-15 06:06] LABS: Basophils # (auto) 0.01 K/uL (0-0.2); Basophils % (auto) 0.1 %; Eosinophils # (auto) 0.02 K/uL (0-0.5); Eosinophils % (auto) 0.2 %; Hematocrit (blood only) 22.9 % (37-47); Hemoglobin 7.8 g/dL (12.0-16.0); Immature Granulocytes # (auto) 0.02 K/uL (0.00-0.02); Immature Granulocytes % (auto) 0.2 %; Lymphocytes # (auto) 1.65 K/uL (1.2-3.4); Mean Corpuscular Hemoglobin 27.2 pg (25-34); Mean Corpuscular Hgb Conc 34.1 g/dL (32-36); Mean Corpuscular Volume 79.8 fL (80-100); Mean Platelet Volume 8.8 fL (7.4-10.4); Monocytes # (auto) 1.02 K/uL (0.11-0.59); Monocytes % (auto) 9.9 %; Neutrophils # (auto) 7.59 K/uL (1.4-6.5); Neutrophils % (auto) 73.6 %; Platelet Count 177 K/uL (130-400); RDW Coefficient of Variation 14.4 % (11.5-14.5); RDW Standard Deviation 41.9 fL (36.4-46.3); Red Blood Count 2.87 M/uL (4.2-5.4); White Blood Count 10.31 K/uL (4.8-10.8)
[2020-02-15] MEDS: DiphenhydrAMINE HCL 50 MG/ML VIAL IV PRN (06:21)
[2020-02-15] MEDS: KETOROLAC 30 MG/ML VIAL IV PRN (06:21)
[2020-02-15] MEDS: OXYTOCIN 20 UNITS in LACTATED RINGER'S 1,000 ML IV SCH (06:31)
[2020-02-15 06:33] LABS: RBC Morphology Unremarkable
[2020-02-15] MEDS ORDERED: FERROUS SULFATE 325 MG TAB PO SCH (08:00)
[2020-02-15] MEDS: SIMETHICONE 80 MG CHEW PO SCH ×4 (08:09→20:33)
[2020-02-15] MEDS: DOCUSATE SODIUM 100 MG CAP PO SCH ×2 (08:09→20:33)
[2020-02-15] MEDS: PRENATAL VITAMIN 1 TAB PO SCH (08:09)
--- NOTE | 2020-02-15 08:33 | Operative Report (OR) ---
DATE OF OPERATION: INDICATION FOR SURGERY: 1. at term, prolonged rupture of membranes. 2. Failure to progress. POSTOPERATIVE DIAGNOSES: 1. at term, prolonged rupture of membranes. 2. Failure to progress. SURGEON: Td Nuno MD TWINE [employer]ING MACHINE OPERATOR: Jennifer Berkowitz RN PROCEDURE: Primary section. ANESTHESIA: Dr. Low. ESTIMATED BLOOD LOSS: 800 mL. URINE OUTPUT: 250 clear urine at the end of the procedure. INTRAVENOUS FLUIDS: 1700 mL. FINDINGS: Live infant female in occiput posterior presentation. Uterus, adnexa, and rest of abdominal exam is unremarkable. DRAINS: Strong catheter. COMPLICATIONS: None. SPECIMEN: Placenta and cord gases. DESCRIPTION OF PROCEDURE: The patient was taken to the operating room where she was prepped and draped in normal sterile fashion after time-out was called. A Pfannenstiel incision was made with a scalpel and carried down to the fascia. Fascia was incised in the midline and extended laterally on both sides. Rectus abdominus muscle was superiorly and inferiorly from the fascia. Peritoneum was identified and entered sharply with scissors. Once inside the abdomen, an Cory retractor was used for retraction. Findings of the abdomen is as dictated above. A low transverse incision was made with a scalpel and extended laterally on both sides. 's head was delivered. Cord was clamped after 1 minute. Cord blood was obtained. was handed over to the waiting pediatric team. Cord blood was obtained as well. Placenta was manually removed. Uterus was exteriorized and cleared of all clots and debris. Abdomen was closed in 2 layers using Vicryl stitch. There was good hemostasis post closure. Copious amount of irrigation was used to irrigate the abdomen and the uterus was returned into the abdominal cavity. There was good hemostasis once again. The Cory retractor was removed. Peritoneum was closed using plain suture. Fascia was closed using Vicryl stitch. SubQ was closed using plain suture and skin was closed with rosie. All instruments were removed from the abdomen and accounted for x2 including sponges, needles, and retractors. Baby and mother are doing well in recovery. I attest to the content of the Intraoperative Record and any orders documented therein. Any exception s are noted below.
--- NOTE | 2020-02-15 09:04 | Obstetrical Progress Note ---
Date of Service February 15, 2020 Assessment & Plan Admission and Anticipated Discharge Date Admission Date: February 13, 2020 Subjective POD#1 stable no complaints of pain urine output good no edema neg Essie's incision c/d/i will increase care/activity Strong out later today Physical Exam Constitutional: WD/WN, vitals as above comfortable Results & Data ([facility] [place]) Vital Signs (Past 12 Hours) Vital Signs Temp Pulse Pulse Resp BP BP Pulse Ox 02/15/20 08:30 36.3 C L 92 H 20 123/72 95 02/15/20 08:00 20 95 02/15/20 07:00 16 95 02/15/20 06:30 18 100 02/15/20 05:00 18 99 02/15/20 04:00 36.9 C 79 18 129/79 99 02/15/20 03:00 18 99 02/15/20 02:00 20 99 02/15/20 01:00 18 99 02/15/20 00:30 36.4 C L 97 H 18 135/67 99 02/14/20 23:51 111 H 95 02/14/20 23:46 93 H 97 02/14/20 23:45 78 93 02/14/20 23:41 77 95 02/14/20 23:38 77 94 02/14/20 23:36 81 116/57 L 96 02/14/20 23:33 85 94 02/14/20 23:31 84 95 02/14/20 23:27 104 H 114/94 94 02/14/20 23:26 37.7 C H 103 H 18 95 02/14/20 23:21 91 H 93 02/14/20 23:16 111 H 108/67 92 02/14/20 23:11 92 H 93 02/14/20 23:10 90 94 02/14/20 23:06 97 H 127/63 96 02/14/20 23:05 92 H 93 02/14/20 23:01 97 H 87 L 02/14/20 22:59 102 H 93 02/14/20 22:56 100 H 18 125/62 96 02/14/20 22:52 102 H 91 02/14/20 22:51 103 H 97 02/14/20 22:46 98 H 137/89 97 02/14/20 22:41 99 H 97 02/14/20 22:36 96 H 96 07/13/20 22:31 96 H 98 02/14/20 22:28 101 H 114/64 02/14/20 22:26 109 H 18 96 02/14/20 22:21 100 H 97 02/14/20 22:16 105 H 18 98 02/14/20 22:11 92 H 98 02/14/20 22:06 118 H 18 136/76 99 02/14/20 22:01 119 H 98 02/14/20 21:57 110 H 134/74 02/14/20 21:56 108 H 20 99 02/14/20 21:51 108 H 98 02/14/20 21:49 101 H 122/51 L 02/14/20 21:46 115 H 18 97 02/14/20 21:41 96 H 98 02/14/20 21:37 101 H 110/49 L 02/14/20 21:36 94 H 20 96 02/14/20 21:31 96 H 98 02/14/20 21:27 98 H 92 02/14/20 21:26 37.1 C 100 H 20 115/63 94
[2020-02-15] MEDS ORDERED: PROMETHAZINE HCL 25 MG in SODIUM CHLORIDE 0.9% 50 ML IV PRN (14:00)
[2020-02-15] MEDS ORDERED: DiphenhydrAMINE HCL 50 MG/ML VIAL IV PRN (14:00)
[2020-02-15] MEDS ORDERED: ONDANSETRON INJ 2 MG/ML 2 ML VIAL IV PRN (14:00)
[2020-02-15] MEDS: IBUPROFEN 600 MG TAB PO PRN ×3 (16:35→23:56)
[2020-02-15] MEDS ORDERED: CEFAZOLIN 2000MG 2,000 MG/15 ML SYR IV SCH (19:45)
[2020-02-15] MEDS ORDERED: bisacodyL 5 MG TABEC PO SCH (20:00)
[2020-02-15] MEDS: OXYCODONE/ACETAMINOPHEN 5mg/325mg TAB PO PRN (23:56)
[2020-02-16 06:38] LABS: Hematocrit (blood only) 24.3 % (37-47); Hemoglobin 8.2 g/dL (12.0-16.0)
--- NOTE | 2020-02-16 08:05 | Obstetrical Progress Note ---
Date of Service February 16, 2020 Assessment & Plan Admission and Anticipated Discharge Date Admission Date: February 13, 2020 Subjective Patient is seen and examined. She feels well, no complaints. Pain is under control with oral meds. Ambulating without dizziness Voiding without difficulty Tolerating regular diet with out N&V Flatus + BM negative Bleeding is minimal No fever/ chills/ CP/ SOB/ N&V/ Leg pain Breast and bottle feeding without problems Vital Signs Temp Pulse Resp BP Pulse Ox 02/15/20 23:45 36.6 C 84 18 131/63 02/15/20 19:30 37.1 C 87 20 117/72 98 02/15/20 15:30 37.0 C 96 H 20 126/75 02/15/20 14:00 20 98 02/15/20 13:00 20 97 02/15/20 12:10 36.8 C 86 20 118/78 97 02/15/20 12:00 16 95 02/15/20 11:00 20 95 02/15/20 10:00 20 96 02/15/20 09:00 20 96 02/15/20 08:30 36.3 C L 92 H 20 123/72 95 Lab Results 02/13/20 02/13/20 02/13/20 Range/Units 10:12 10:12 10:31 WBC (4.8-10.8) K/uL RBC (4.2-5.4) M/uL Hgb (12.0-16.0) g/dL Hct (37-47) % MCV (80-100) fL MCH (25-34) pg MCHC (32-36) g/dL RDW Std Deviation (36.4-46.3) fL RDW Coeff of Km (11.5-14.5) % Plt Count (130-400) K/uL MPV (7.4-10.4) fL Immature Gran % (Auto) % Neut % (Auto) % Lymph % (Auto) % [place] % (Auto) % Eos % (Auto) % Baso % (Auto) % Neut # (Auto) (1.4-6.5) K/uL Lymph # (Auto) (1.2-3.4) K/uL [place] # (Auto) (0.11-0.59) K/uL Eos # (Auto) (0-0.5) K/uL Baso # (Auto) (0-0.2) K/uL Immature Gran # (Auto) (0.00-0.02) K/uL RBC Morphology Cord ABG pH (7.1-7.38) Cord ABG pCO2 (39.1-73.5) mmHg Cord ABG pO2 (4.1-31.7) mmHg Cord ABG HCO3 (19.7-28.5) mmol/L Cord ABG Base Excess (-9-1.8) mEq/L Cord ABG O2 Sat (<60) % Cord VBG pH (7.20-7.44) Cord VBG pCO2 (30.4-57.2) mmHg Cord VBG pO2 (14.1-43.3) mmHg Cord VBG HCO3 (18.4-26.8) mmol/L Cord VBG Base Excess (-7.7-1.9) mEq/L Cord VBG O2 Sat (<68) % Barometric Pressure mm/Hg Blood Gas Comments Amniotic Protein POS Ur Butalbital Confirm Cancelled Urine Opiates Screen Cancelled Neg U Codeine Confrm GC/MS Cancelled Ur Morphine (GC/MS) Cancelled Ur Hydrocodone (GC/MS) Cancelled U Norhydrocodone Conf Cancelled Ur Oxycodone Screen Cancelled U Noroxycodone Confirm Cancelled Ur Oxycodone GC/MS Cancelled U Oxymorphone GC/MS Cancelled EDDP Confirm Cancelled Ur Methadone, Qual Cancelled Neg Ur Methadone Cancelled Ur Hydromorphone (GC/MS) Cancelled Urine Barbiturates Cancelled Neg Ur Phencyclidine Scrn Cancelled Ur Phencyclidine (PCP) Neg (Neg) Urine PCP Confirm Cancelled Ur Amphetamines Screen Cancelled U Amphetamines Confirm Cancelled U Amphetamin/Meth Scrn Neg (Neg) Methamphetamine GC/MS Cancelled MDMA (Ecstasy) Screen Neg (Neg) Ur Amobarbital GC/MS Cancelled U Pentobarbital GC/MS Cancelled U Phenobarbital GC/MS Cancelled U Secobarbital GC/MS Cancelled U t-QU-Yoifnkhot GC/MS Cancelled U Benzodiazepines Scrn Cancelled Neg U 7-Aminoclonazepam Screen Cancelled Ur Nordiazepam GC/MS Cancelled U OH-ethylfluraz GC/MS Cancelled U Lorazepam Cnf GC/MS Cancelled U Oxazepam Confm GC/MS Cancelled Ur Temazepam Cnf GC/MS Cancelled U a-Hydroxytriaz GC/MS Cancelled U o-IE-Yjxjexuhx Cancelled Urine Cocaine Cancelled Ur Cocaine Metabolite Neg (Neg) U Cocaine Metab Confirm Cancelled Tetrahydrocannabinol Cancelled U Marijuana (THC) Screen Cancelled Pos H Drug Screen Comment Cancelled Reference Lab Cancelled 02/13/20 02/13/20 02/14/20 Range/Units 10:36 11:23 20:43 WBC 6.27 (4.8-10.8) K/uL RBC 3.55 L (4.2-5.4) M/uL Hgb 9.8 L (12.0-16.0) g/dL Hct 28.3 L (37-47) % MCV 79.7 L (80-100) fL MCH 27.6 (25-34) pg MCHC 34.6 (32-36) g/dL RDW Std Deviation 40.9 (36.4-46.3) fL RDW Coeff of Km 14.2 (11.5-14.5) % Plt Count 234 (130-400) K/uL MPV 9.1 (7.4-10.4) fL Immature Gran % (Auto) % Neut % (Auto) % Lymph % (Auto) % [place] % (Auto) % Eos % (Auto) % Baso % (Auto) % Neut # (Auto) (1.4-6.5) K/uL Lymph # (Auto) (1.2-3.4) K/uL [place] # (Auto) (0.11-0.59) K/uL Eos # (Auto) (0-0.5) K/uL Baso # (Auto) (0-0.2) K/uL Immature Gran # (Auto) (0.00-0.02) K/uL RBC Morphology Cord ABG pH 7.24 (7.1-7.38) Cord ABG pCO2 61 (39.1-73.5) mmHg Cord ABG pO2 22 (4.1-31.7) mmHg Cord ABG HCO3 26 (19.7-28.5) mmol/L Cord ABG Base Excess -3.0 (-9-1.8) mEq/L Cord ABG O2 Sat < 60.0 (<60) % Cord VBG pH (7.20-7.44) Cord VBG pCO2 (30.4-57.2) mmHg Cord VBG pO2 (14.1-43.3) mmHg Cord VBG HCO3 (18.4-26.8) mmol/L Cord VBG Base Excess (-7.7-1.9) mEq/L Cord VBG O2 Sat (<68) % Barometric Pressure 730.7 mm/Hg Blood Gas Comments DAS Amniotic Protein Cancelled Ur Butalbital Confirm Urine Opiates Screen U Codeine Confrm GC/MS Ur Morphine (GC/MS) Ur Hydrocodone (GC/MS) U Norhydrocodone Conf Ur Oxycodone Screen U Noroxycodone Confirm Ur Oxycodone GC/MS U Oxymorphone GC/MS EDDP Confirm Ur Methadone, Qual Ur Methadone Ur Hydromorphone (GC/MS) Urine Barbiturates Ur Phencyclidine Scrn Ur Phencyclidine (PCP) (Neg) Urine PCP Confirm Ur Amphetamines Screen U Amphetamines Confirm U Amphetamin/Meth Scrn (Neg) Methamphetamine GC/MS MDMA (Ecstasy) Screen (Neg) Ur Amobarbital GC/MS U Pentobarbital GC/MS U Phenobarbital GC/MS U Secobarbital GC/MS U [id number] GC/MS U Benzodiazepines Scrn U 7-Aminoclonazepam Screen Ur Nordiazepam GC/MS U OH-ethylfluraz GC/MS U Lorazepam Cnf GC/MS U Oxazepam Confm GC/MS Ur Temazepam Cnf GC/MS U a-Hydroxytriaz GC/MS U u-HE-Bmpszfmap Urine Cocaine Ur Cocaine Metabolite (Neg) U Cocaine Metab Confirm Tetrahydrocannabinol U Marijuana (THC) Screen Drug Screen Comment Reference Lab 02/14/20 02/15/20 02/16/20 Range/Units 20:43 05:46 06:27 WBC 10.31 (4.8-10.8) K/uL RBC 2.87 L (4.2-5.4) M/uL Hgb 7.8 L 8.2 L (12.0-16.0) g/dL Hct 22.9 L 24.3 L (37-47) % MCV 79.8 L (80-100) fL MCH 27.2 (25-34) pg MCHC 34.1 (32-36) g/dL RDW Std Deviation 41.9 (36.4-46.3) fL RDW Coeff of Km 14.4 (11.5-14.5) % Plt Count 177 (130-400) K/uL MPV 8.8 (7.4-10.4) fL Immature Gran % (Auto) 0.2 % Neut % (Auto) 73.6 % Lymph % (Auto) 16.0 % [place] % (Auto) 9.9 % Eos % (Auto) 0.2 % Baso % (Auto) 0.1 % Neut # (Auto) 7.59 H (1.4-6.5) K/uL Lymph # (Auto) 1.65 (1.2-3.4) K/uL [place] # (Auto) 1.02 H (0.11-0.59) K/uL Eos # (Auto) 0.02 (0-0.5) K/uL Baso # (Auto) 0.01 (0-0.2) K/uL Immature Gran # (Auto) 0.02 (0.00-0.02) K/uL RBC Morphology Unremarkable Cord ABG pH (7.1-7.38) Cord ABG pCO2 (39.1-73.5) mmHg Cord ABG pO2 (4.1-31.7) mmHg Cord ABG HCO3 (19.7-28.5) mmol/L Cord ABG Base Excess (-9-1.8) mEq/L Cord ABG O2 Sat (<60) % Cord VBG pH 7.35 (7.20-7.44) Cord VBG pCO2 44 (30.4-57.2) mmHg Cord VBG pO2 28 (14.1-43.3) mmHg Cord VBG HCO3 24 (18.4-26.8) mmol/L Cord VBG Base Excess -2.1 (-7.7-1.9) mEq/L Cord VBG O2 Sat 60.5 (<68) % Barometric Pressure 730.7 mm/Hg Blood Gas Comments DAS Amniotic Protein Ur Butalbital Confirm Urine Opiates Screen U Codeine Confrm GC/MS Ur Morphine (GC/MS) Ur Hydrocodone (GC/MS) U Norhydrocodone Conf Ur Oxycodone Screen U Noroxycodone Confirm Ur Oxycodone GC/MS U Oxymorphone GC/MS EDDP Confirm Ur Methadone, Qual Ur Methadone Ur Hydromorphone (GC/MS) Urine Barbiturates Ur Phencyclidine Scrn Ur Phencyclidine (PCP) (Neg) Urine PCP Confirm Ur Amphetamines Screen U Amphetamines Confirm U Amphetamin/Meth Scrn (Neg) Methamphetamine GC/MS MDMA (Ecstasy) Screen (Neg) Ur Amobarbital GC/MS U Pentobarbital GC/MS U Phenobarbital GC/MS U Secobarbital GC/MS U [id number] GC/MS U Benzodiazepines Scrn U 7-Aminoclonazepam Screen Ur Nordiazepam GC/MS U [place]-ethylfluraz GC/MS U Lorazepam Cnf GC/MS U Oxazepam Confm GC/MS Ur Temazepam Cnf GC/MS U a-Hydroxytriaz GC/MS U u-[id number]-[id number] Urine Cocaine Ur Cocaine Metabolite (Neg) U Cocaine Metab Confirm Tetrahydrocannabinol U Marijuana (THC) Screen Drug Screen Comment Reference Lab PE: General: Alert, orientedx3, NAD CVS: S1S2 RRR Lungs; CTAB Abd: soft, NT, ND, BS+, fundus firm, below Umbilicus Incision/ dressing: Clean, dry, intact Patient desirespain meds before dressing would be taken off Perineum intact, Lochia rubra minimal Ext; NT, no edema AP: 24 yo s/p C Section, pod# 2 VSS Afebrile doing well Anemic: asymptomatic, will increase iron to bid Continue routine postop care Encourage ambulation, PO intake All questions were answered D/C home tomorrow Results & Data ([facility]) Vital Signs (Past 12 Hours) Vital Signs Temp Pulse Resp BP 02/15/20 23:45 36.6 C 84 18 131/63
[2020-02-16] MEDS: DOCUSATE SODIUM 100 MG CAP PO SCH ×2 (08:24→21:39)
[2020-02-16] MEDS: IBUPROFEN 600 MG TAB PO PRN ×3 (08:24→16:09)
[2020-02-16] MEDS: PRENATAL VITAMIN 1 TAB PO SCH (08:24)
[2020-02-16] MEDS: SIMETHICONE 80 MG CHEW PO SCH ×4 (08:24→21:39)
[2020-02-16] MEDS: OXYCODONE/ACETAMINOPHEN 5mg/325mg TAB PO PRN ×3 (08:26→16:09)
[2020-02-16] MEDS: FERROUS SULFATE 325 MG TAB PO SCH ×2 (09:23→21:39)
[2020-02-16 12:33] LABS: Marijuana Quant, GCMS Urine 51 ng/mL (<5)
[2020-02-16] MEDS ORDERED: bisacodyL 10 MG SUPP PR PRN (21:27)
[2020-02-16] MEDS ORDERED: bisacodyL 5 MG TABEC PO ONE (21:42)
[2020-02-17] MEDS: IBUPROFEN 600 MG TAB PO PRN ×2 (00:38→08:20)
[2020-02-17] MEDS: OXYCODONE/ACETAMINOPHEN 5mg/325mg TAB PO PRN ×2 (00:38→08:19)
[2020-02-17 06:13] LABS: Basophils # (auto) 0.01 K/uL (0-0.2); Basophils % (auto) 0.1 %; Eosinophils % (auto) 1.1 %; Hemoglobin 7.7 g/dL (12.0-16.0); Immature Granulocytes # (auto) 0.02 K/uL (0.00-0.02); Immature Granulocytes % (auto) 0.2 %; Lymphocytes # (auto) 2.02 K/uL (1.2-3.4); Lymphocytes % (auto) 22.9 %; Mean Corpuscular Hemoglobin 26.9 pg (25-34); Mean Corpuscular Hgb Conc 33.5 g/dL (32-36); Mean Corpuscular Volume 80.4 fL (80-100); Monocytes # (auto) 0.72 K/uL (0.11-0.59); Monocytes % (auto) 8.1 %; Neutrophils # (auto) 5.97 K/uL (1.4-6.5); Neutrophils % (auto) 67.6 %; Platelet Count 243 K/uL (130-400); RDW Coefficient of Variation 14.5 % (11.5-14.5); RDW Standard Deviation 42.5 fL (36.4-46.3); Red Blood Count 2.86 M/uL (4.2-5.4); White Blood Count 8.84 K/uL (4.8-10.8)
[2020-02-17 06:42] LABS: RBC Morphology Unremarkable
[2020-02-17] MEDS: PRENATAL VITAMIN 1 TAB PO SCH (08:18)
[2020-02-17] MEDS: SIMETHICONE 80 MG CHEW PO SCH ×2 (08:19→14:46)
[2020-02-17] MEDS: FERROUS SULFATE 325 MG TAB PO SCH (08:19)
[2020-02-17] MEDS: DOCUSATE SODIUM 100 MG CAP PO SCH (08:19)
--- NOTE | 2020-02-17 09:04 | Surgery Progress Note ---
Date of Service February 17, 2020 Subjective POD#3 doing well passing gas tolerating diet OOB Physical Exam Constitutional: WD/WN, vitals as above comfortable incision c/d/i no edema neg Essie's for d/c today Results & Data Laboratory Results 02/13/20 02/13/20 02/13/20 10:12 10:12 10:12 WBC RBC Hgb Hct MCV MCH MCHC RDW Std Deviation RDW Coeff of Km Plt Count MPV Immature Gran % (Auto) Neut % (Auto) Lymph % (Auto) [place] % (Auto) Eos % (Auto) Baso % (Auto) Neut # (Auto) Lymph # (Auto) [place] # (Auto) Eos # (Auto) Baso # (Auto) Immature Gran # (Auto) RBC Morphology Cord ABG pH Cord ABG pCO2 Cord ABG pO2 Cord ABG HCO3 Cord ABG Base Excess Cord ABG O2 Sat Cord VBG pH Cord VBG pCO2 Cord VBG pO2 Cord VBG HCO3 Cord VBG Base Excess Cord VBG O2 Sat Barometric Pressure Blood Gas Comments Amniotic Protein Ur Butalbital Confirm Cancelled Urine Opiates Screen Cancelled Neg U Codeine Confrm GC/MS Cancelled Ur Morphine (GC/MS) Cancelled Ur Hydrocodone (GC/MS) Cancelled U Norhydrocodone Conf Cancelled Ur Oxycodone Screen Cancelled U Noroxycodone Confirm Cancelled Ur Oxycodone GC/MS Cancelled U Oxymorphone GC/MS Cancelled EDDP Confirm Cancelled Ur Methadone, Qual Cancelled Neg Ur Methadone Cancelled Ur Hydromorphone (GC/MS) Cancelled Urine Barbiturates Cancelled Neg Ur Phencyclidine Scrn Cancelled Ur Phencyclidine (PCP) Neg Urine PCP Confirm Cancelled Ur Amphetamines Screen Cancelled U Amphetamines Confirm Cancelled U Amphetamin/Meth Scrn Neg Methamphetamine GC/MS Cancelled MDMA (Ecstasy) Screen Neg Ur Amobarbital GC/MS Cancelled U Pentobarbital GC/MS Cancelled U Phenobarbital GC/MS Cancelled U Secobarbital GC/MS Cancelled U [id number] GC/MS Cancelled U Benzodiazepines Scrn Cancelled Neg U 7-Aminoclonazepam Screen Cancelled Ur Nordiazepam GC/MS Cancelled U OH-ethylfluraz GC/MS Cancelled U Lorazepam Cnf GC/MS Cancelled U Oxazepam Confm GC/MS Cancelled Ur Temazepam Cnf GC/MS Cancelled U a-Hydroxytriaz GC/MS Cancelled U [id number] Cancelled Urine Cocaine Cancelled Ur Cocaine Metabolite Neg U Cocaine Metab Confirm Cancelled Tetrahydrocannabinol Cancelled U Marijuana (THC) Screen Cancelled Pos H U Marijuana THC Carboxy 51 H Drug Screen Comment Cancelled SEE NOTE Reference Lab Cancelled 02/13/20 02/13/20 02/13/20 10:31 10:36 11:23 WBC 6.27 RBC 3.55 L Hgb 9.8 L Hct 28.3 L MCV 79.7 L MCH 27.6 MCHC 34.6 RDW Std Deviation 40.9 RDW Coeff of Km 14.2 Plt Count 234 MPV 9.1 Immature Gran % (Auto) Neut % (Auto) Lymph % (Auto) [place] % (Auto) Eos % (Auto) Baso % (Auto) Neut # (Auto) Lymph # (Auto) [place] # (Auto) Eos # (Auto) Baso # (Auto) Immature Gran # (Auto) RBC Morphology Cord ABG pH Cord ABG pCO2 Cord ABG pO2 Cord ABG HCO3 Cord ABG Base Excess Cord ABG O2 Sat Cord VBG pH Cord VBG pCO2 Cord VBG pO2 Cord VBG HCO3 Cord VBG Base Excess Cord VBG O2 Sat Barometric Pressure Blood Gas Comments Amniotic Protein POS Cancelled Ur Butalbital Confirm Urine Opiates Screen U Codeine Confrm GC/MS Ur Morphine (GC/MS) Ur Hydrocodone (GC/MS) U Norhydrocodone Conf Ur Oxycodone Screen U Noroxycodone Confirm Ur Oxycodone GC/MS U Oxymorphone GC/MS EDDP Confirm Ur Methadone, Qual Ur Methadone Ur Hydromorphone (GC/MS) Urine Barbiturates Ur Phencyclidine Scrn Ur Phencyclidine (PCP) Urine PCP Confirm Ur Amphetamines Screen U Amphetamines Confirm U Amphetamin/Meth Scrn Methamphetamine GC/MS MDMA (Ecstasy) Screen Ur Amobarbital GC/MS U Pentobarbital GC/MS U Phenobarbital GC/MS U Secobarbital GC/MS U [id number] GC/MS U Benzodiazepines Scrn U 7-Aminoclonazepam Screen Ur Nordiazepam GC/MS U OH-ethylfluraz GC/MS U Lorazepam Cnf GC/MS U Oxazepam Confm GC/MS Ur Temazepam Cnf GC/MS U a-Hydroxytriaz GC/MS U [id number]-Wvrzeswzt Urine Cocaine Ur Cocaine Metabolite U Cocaine Metab Confirm Tetrahydrocannabinol U Marijuana (THC) Screen U Marijuana THC Carboxy Drug Screen Comment Reference Lab 02/14/20 02/14/20 02/15/20 20:43 20:43 05:46 WBC 10.31 RBC 2.87 L Hgb 7.8 L Hct 22.9 L MCV 79.8 L MCH 27.2 MCHC 34.1 RDW Std Deviation 41.9 RDW Coeff of Km 14.4 Plt Count 177 MPV 8.8 Immature Gran % (Auto) 0.2 Neut % (Auto) 73.6 Lymph % (Auto) 16.0 [place] % (Auto) 9.9 Eos % (Auto) 0.2 Baso % (Auto) 0.1 Neut # (Auto) 7.59 H Lymph # (Auto) 1.65 [place] # (Auto) 1.02 H Eos # (Auto) 0.02 Baso # (Auto) 0.01 Immature Gran # (Auto) 0.02 RBC Morphology Unremarkable Cord ABG pH 7.24 Cord ABG pCO2 61 Cord ABG pO2 22 Cord ABG HCO3 26 Cord ABG Base Excess -3.0 Cord ABG O2 Sat < 60.0 Cord VBG pH 7.35 Cord VBG pCO2 44 Cord VBG pO2 28 Cord VBG HCO3 24 Cord VBG Base Excess -2.1 Cord VBG O2 Sat 60.5 Barometric Pressure 730.7 730.7 Blood Gas Comments DAS DAS Amniotic Protein Ur Butalbital Confirm Urine Opiates Screen U Codeine Confrm GC/MS Ur Morphine (GC/MS) Ur Hydrocodone (GC/MS) U Norhydrocodone Conf Ur Oxycodone Screen U Noroxycodone Confirm Ur Oxycodone GC/MS U Oxymorphone GC/MS EDDP Confirm Ur Methadone, Qual Ur Methadone Ur Hydromorphone (GC/MS) Urine Barbiturates Ur Phencyclidine Scrn Ur Phencyclidine (PCP) Urine PCP Confirm Ur Amphetamines Screen U Amphetamines Confirm U Amphetamin/Meth Scrn Methamphetamine GC/MS MDMA (Ecstasy) Screen Ur Amobarbital GC/MS U Pentobarbital GC/MS U Phenobarbital GC/MS U Secobarbital GC/MS U [id number] GC/MS U Benzodiazepines Scrn U 7-Aminoclonazepam Screen Ur Nordiazepam GC/MS U OH-ethylfluraz GC/MS U Lorazepam Cnf GC/MS U Oxazepam Confm GC/MS Ur Temazepam Cnf GC/MS U a-Hydroxytriaz GC/MS U a-BW-Uxlcercjm Urine Cocaine Ur Cocaine Metabolite U Cocaine Metab Confirm Tetrahydrocannabinol U Marijuana (THC) Screen U Marijuana THC Carboxy Drug Screen Comment Reference Lab 02/16/20 02/17/20 06:27 05:45 WBC 8.84 RBC 2.86 L Hgb 8.2 L 7.7 L Hct 24.3 L 23.0 L MCV 80.4 MCH 26.9 MCHC 33.5 RDW Std Deviation 42.5 RDW Coeff of Km 14.5 Plt Count 243 MPV 9.0 Immature Gran % (Auto) 0.2 Neut % (Auto) 67.6 Lymph % (Auto) 22.9 [place] % (Auto) 8.1 Eos % (Auto) 1.1 Baso % (Auto) 0.1 Neut # (Auto) 5.97 Lymph # (Auto) 2.02 [place] # (Auto) 0.72 H Eos # (Auto) 0.10 Baso # (Auto) 0.01 Immature Gran # (Auto) 0.02 RBC Morphology Unremarkable Cord ABG pH Cord ABG pCO2 Cord ABG pO2 Cord ABG HCO3 Cord ABG Base Excess Cord ABG O2 Sat Cord VBG pH Cord VBG pCO2 Cord VBG pO2 Cord VBG HCO3 Cord VBG Base Excess Cord VBG O2 Sat Barometric Pressure Blood Gas Comments Amniotic Protein Ur Butalbital Confirm Urine Opiates Screen U Codeine Confrm GC/MS Ur Morphine (GC/MS) Ur Hydrocodone (GC/MS) U Norhydrocodone Conf Ur Oxycodone Screen U Noroxycodone Confirm Ur Oxycodone GC/MS U Oxymorphone GC/MS EDDP Confirm Ur Methadone, Qual Ur Methadone Ur Hydromorphone (GC/MS) Urine Barbiturates Ur Phencyclidine Scrn Ur Phencyclidine (PCP) Urine PCP Confirm Ur Amphetamines Screen U Amphetamines Confirm U Amphetamin/Meth Scrn Methamphetamine GC/MS MDMA (Ecstasy) Screen Ur Amobarbital GC/MS U Pentobarbital GC/MS U Phenobarbital GC/MS U Secobarbital GC/MS U l-KH-Hlpwjjnte GC/MS U Benzodiazepines Scrn U 7-Aminoclonazepam Screen Ur Nordiazepam GC/MS U OH-ethylfluraz GC/MS U Lorazepam Cnf GC/MS U Oxazepam Confm GC/MS Ur Temazepam Cnf GC/MS U a-Hydroxytriaz GC/MS U q-HR-Axhbduzgh Urine Cocaine Ur Cocaine Metabolite U Cocaine Metab Confirm Tetrahydrocannabinol U Marijuana (THC) Screen U Marijuana THC Carboxy Drug Screen Comment Reference Lab
--- NOTE | 2020-03-09 07:52 | Discharge Summary (DS) ---
CHIEF COMPLAINT: 1. at term. 2. Failure to progress. HISTORY OF PRESENT ILLNESS: 1. This is a 24-year-old primigravida who was in labor for several hours. The patient experienced rupture of membranes and Pitocin augmentation with no change in cervical dilation, the patient therefore underwent section for 1. at term, prolonged rupture of membranes. 3. Failure to progress. The patient delivered via a live , weight and surgical procedures on the respective records. Surgery otherwise was unremarkable. The patient met all milestones for day 1 and 2, was able to ambulate, tolerate p.o. food and meds. She was discharged home in stable condition on 02/17/2020. PAST MEDICAL HISTORY: None. PAST SURGICAL HISTORY: Dental procedure. SOCIAL HISTORY: The patient denies tobacco, drug or alcohol use. Social history otherwise unremarkable. VITAL SIGNS: On 02/17/2020 showed blood pressure 132/80, pulse of 83, temperature of 36.6. LABS: On 02/17/2020 showed hemoglobin of 7.7, hematocrit is 23.0. PHYSICAL EXAMINATION: HEART: S1, S2, regular rhythm and rate. LUNGS: Clear to auscultation bilaterally. ABDOMEN: Nontender, nondistended, positive bowel sounds. Incision clean, dry and intact. EXTREMITIES: No cyanosis, clubbing or edema. CONDITION ON DISCHARGE: Stable. OPERATION: Primary section. ____: The patient is discharged home with instructions regarding activity, diet and followup appointment.
== END 2020-02-17 15:00 | disposition home or self-care (01) | DRG 788 ==
LOC: OPB 09:18 → 4S1 09:19 → 4S2 02-15 00:28

== ENCOUNTER 2022-05-17 16:10 | Inpatient (IN) ==
[2022-05-17 17:10] LABS: Basophils # (auto) 0.03 K/uL (0-0.2); Basophils % (auto) 0.5 %; Eosinophils # (auto) 0.02 K/uL (0-0.50); Eosinophils % (auto) 0.3 %; Hematocrit (blood only) 30.1 % (34.1-44.9); Hemoglobin 10.2 g/dl (12.0-16.0); Immature Granulocytes # (auto) 0.02 K/uL (0.00-0.02); Immature Granulocytes % (auto) 0.3 %; Lymphocytes # (auto) 1.73 K/uL (1.2-3.4); Mean Corpuscular Hemoglobin 27.7 pg (25.0-34.0); Mean Corpuscular Hgb Conc 33.9 g/dL (32.0-36.0); Mean Corpuscular Volume 81.8 fL (80.0-100.0); Mean Platelet Volume 10.1 fL (9.4-12.3); Monocytes # (auto) 0.49 K/uL (0.24-0.82); Monocytes % (auto) 7.9 %; Neutrophils # (auto) 3.89 K/uL (1.4-6.5); Platelet Count 226 K/uL (130-400); RDW Coefficient of Variation 13.1 % (11.5-14.5); RDW Standard Deviation 39.2 fL (36.4-46.3); Red Blood Count 3.68 M/uL (3.93-5.22); White Blood Count 6.18 K/ul (4.8-10.8)
[2022-05-17 17:31] LABS: Appearance Urine Cloudy (Clear); Bacteria Urine Automated 1+ (Negative); Bilirubin Urine Negative (Negative); Blood Urine Negative (Negative); Color Urine Yellow; Epithelial Cell Urine Auto >30 /lpf (0-5); Glucose Urine UA Negative (Negative); Ketones Urine 1+ (Negative); Leukocyte Esterase Urine Negative (Negative); Nitrite Urine Negative (Negative); Protein Urine Negative (Negative); RBC Urine Automated 0-4 /hpf (0-4); Specific Gravity Urine 1.011 (1.000-1.030); Urobilinogen Urine Negative (Negative); pH Urine 6.5 (4.5-7.5)
[2022-05-17 17:35] LABS: Acetaminophen < 3 ug/ml (10-30); Albumin Globulin Ratio 1.2 (0.9-2); Albumin Level 3.4 gm/dl (3.4-5.0); BUN Creatinine Ratio 4.3 (10-20); Bilirubin,Total 1.1 mg/dl (0.2-1.0); Calcium 8.6 mg/dl (8.5-10.1); Creatinine Clr Calc Pharmacy 136.5 ml/min; Est GFR (African American) 139.6 ml/min; Est GFR (Non-African American) 120.4 ml/min; Globulin 2.8 gm/dl (2.5-4.0); Potassium 3.5 mmol/L (3.5-5.1); Salicylate < 3.0 mg/dl (3.0-30); Total Protein 6.2 gm/dl (6.0-8.3)
--- NOTE | 2022-05-17 17:59 | Emergency Department Note ---
Impression & Plan Depression with suicidal ideation, ED Provider Note Provider: Campos Marie MD DATE OF SERVICE: 05/17/2022 CHIEF COMPLAINT: Depression HISTORY OF PRESENT ILLNESS: Patient is a 26-year-old female approximately 37 weeks today presenting referred by [employer] due to worsening depression. Does report some diet-controlled gestational diabetes. Prior with first child. Patient states distantly about 8 years ago and have inpatient psychiatric care. States she has had issues with depression and distant suicide attempt. Patient states that she currently is not on any psychiatric medications and does not see a counselor. Over the last several months particularly last week or 2 worsening depression with anhedonia. Reports that she is does not feel like she wants to be alive. Denies trying to harm herself. Patient denies planning specific way at this time. No reports of any homicidal or anger issues reported. Denies any related issues such as abdominal pain or contractions or significant bleeding. States not having active hallucinations but feels like she just does not want go on is afraid to be at home. Two year old daughter is at home and staying with grandmother who was recently in town for the next several weeks to help. Feels that she needs inpatient treatment and thus presents here discussion with her [employer] prior to arrival. REVIEW OF SYSTEMS: A total of 10 review of systems was obtained and negative except as stated above in the HPI. PAST MEDICAL HISTORY: As noted above MEDICATIONS: Reviewed, none noted SOCIAL HISTORY: Past history of marijuana usage, lives at home with 2-year-old daughter, used to work at [employer] but off last several months. PHYSICAL EXAM: GENERAL: alert and oriented in no acute distress on stretcher Head: normocephalic and atraumatic EYES: No injection, discharge or icterus. NECK: Trachea midline. Supple. ENT: Mucous membranes pink and moist. LUNGS: Airway patent. No retractions. Breath sounds clear HEART: Regular rate and rhythm. No chest wall tenderness ABDOMEN: Soft gravid abdomen without guarding. SKIN: Acyanotic, warm, dry, without rashes EXTREMITIES: Without tenderness or deformity. NEUROLOGICAL: No focal deficits. No aphasia. No facial droop or slurred speech. Ambulatory. Psych: Reports depression with thoughts of not wanting to be alive. Denies trying to harm her self. No hallucinations or HI reported. Flattened affect. Patient's laboratory studies reviewed. Differential includes Mood disorder, infection, hypoglycemia, electrolyte abnormalities, cardiac sources, intracerebral event, toxicologic, trauma, neurologic, as well as other pathologies. IMPRESSION/MEDICAL DECISION MAKING: Patient with worsening depression distant history of psychiatric issues without current outpatient supports of counselor or psychiatrist. Complicating factors obviously the late stage . Does not appear to be in any acute issues with the at this time. Patient wishing for inpatient treatment. Likely has not attempted by her report to harm herself. Basic blood work was obtained. No significant abnormalities. Voluntary inpatient treatment was s ought. Bed search initiated. [facility] evaluated and accepted there for further treatment which will be beneficial as she will have close care to any obstetrical care that she may need given her near term . 201 signed. DIAGNOSIS: Depression with suicidal ideation DISPOSITION: 3 S. for further inpatient psychiatric care. Past Med/Surg History Medical History Marijuana smoker No significant medical problems Surgical History H/O wisdom tooth extraction Social History Smoking Status: Never smoker Second Hand Exposure: No; Hx Alcohol Use: No Hx Substance Use: No Preferred Language: British Communication Ability: Effective Visual Impairment: No Limitations Hearing Ability: Normal House Coordinator Required: No Beliefs That Will Affect Care: None marital status: Single Current Living Situation: Significant Other Current Living Situation Comment: lives with boyfriend current occupational status: employed Feels Safe at Home: Yes Assistive Devices: None Allergies Allergies Allergy/AdvReac Type Severity Reaction Status Date / Time bee venom protein (honey bee) Allergy Severe Anaphylaxis Verified 08/28/21 07:32 bacitracin AdvReac Intermediate Rash Verified 08/28/21 07:32 Home Meds Home Medications Medication Instructions Recorded Confirmed No Known Home Medications 05/17/22 05/17/22 Results & Data (ED) Vital Signs Vital Signs - 24 hr 05/17/22 16:30 05/17/22 18:39 Temperature 36.8 C Temperature Source Oral Pulse Rate 84 Pulse Rate [Finger] 77 Pulse Rhythm [Finger] Regular Pulse Strength [Finger] Normal Respiratory Rate 18 18 Respiratory Effort / Characteristics Non-Labored Non-Labored Spontaneous Respiratory Depth Normal Normal Respiratory Pattern Regular Blood Pressure 121/59 L Blood Pressure [Right Arm] 118/60 Blood Pressure Mean 79 Blood Pressure Mean [Right Arm] 79 Blood Pressure Position Semi-fowlers Blood Pressure Position [Right Arm] Sitting Pulse Oximetry 99 98 Oxygen Delivery Method Room Air Room Air Sepsis Recent Fever Within 48 Hours No Sepsis New/Unexplained Change in Mental Status No Sepsis Action Taken by Nursing No Action Required Laboratory Data Result diagrams: 05/17/22 16:55 05/17/22 16:55 Lab Results 05/17/22 05/17/22 05/17/22 Range/Units 16:47 16:47 16:47 WBC (4.8-10.8) K/ul RBC (3.93-5.22) M/uL Hgb (12.0-16.0) g/dl Hct (34.1-44.9) % MCV (80.0-100.0) fL MCH (25.0-34.0) pg MCHC (32.0-36.0) g/dL RDW Std Deviation (36.4-46.3) fL RDW Coeff of Km (11.5-14.5) % Plt Count (130-400) K/uL MPV (9.4-12.3) fL Immature Gran % (Auto) % Neut % (Auto) % Lymph % (Auto) % [place] % (Auto) % Eos % (Auto) % Baso % (Auto) % Neut # (Auto) (1.4-6.5) K/uL Lymph # (Auto) (1.2-3.4) K/uL [place] # (Auto) (0.24-0.82) K/uL Eos # (Auto) (0-0.50) K/uL Baso # (Auto) (0-0.2) K/uL Immature Gran # (Auto) (0.00-0.02) K/uL Sodium (136-145) mmol/L Potassium (3.5-5.1) mmol/L Chloride (98-107) mmol/L Carbon Dioxide (21-32) mmol/L Anion Gap (3-11) BUN (6-23) mg/dl Creatinine (0.6-1.2) mg/dl Est Cr Clr Drug Dosing ml/min Est GFR ( Amer) ml/min Est GFR (Non-Af Amer) ml/min BUN/Creatinine Ratio (10-20) Glucose (70-99(Fasting)) mg/dl Calcium (8.5-10.1) mg/dl Total Bilirubin (0.2-1.0) mg/dl AST (13-39) U/L ALT (7-52) U/L Alkaline Phosphatase (34-104) U/L Total Protein (6.0-8.3) gm/dl Albumin (3.4-5.0) gm/dl Globulin (2.5-4.0) gm/dl Albumin/Globulin Ratio (0.9-2) TSH (0.300-4.500) uIu/ml Urine Color Yellow Urine Appearance Cloudy A (Clear) Urine pH 6.5 (4.5-7.5) Ur Specific [place] 1.011 (1.000-1.030) Urine Protein Negative (Negative) Urine Glucose (UA) Negative (Negative) Urine Ketones 1+ H (Negative) Urine Blood Negative (Negative) Urine Nitrite Negative (Negative) Urine Bilirubin Negative (Negative) Urine Urobilinogen Negative (Negative) Ur Leukocyte Esterase Negative (Negative) Urine WBC (Auto) 10-30 H (0-5) /hpf Urine RBC (Auto) 0-4 (0-4) /hpf U Hyaline Cast (Auto) 1-5 (0-5) /lpf U Epithel Cells (Auto) >30 H (0-5) /lpf Urine Bacteria (Auto) 1+ H (Negative) Salicylates (3.0-30) mg/dl Urine Opiates Screen Neg (Neg) Ur Methadone, Qual Neg (Neg) Acetaminophen (10-30) ug/ml Urine Barbiturates Neg (Neg) Ur Phencyclidine (PCP) Neg (Neg) U Amphetamin/Meth Scrn Neg (Neg) MDMA (Ecstasy) Screen Neg (Neg) U Benzodiazepines Scrn Neg (Neg) Ur Cocaine Metabolite Neg (Neg) U Marijuana (THC) Screen Pos H (Neg) Ethyl Alcohol mg/dL (<10.0) mg/dl SARS-CoV-2, RNA, NAAT NEGATIVE (NEGATIVE) 05/17/22 05/17/22 05/17/22 Range/Units 16:55 16:55 16:55 WBC 6.18 (4.8-10.8) K/ul RBC 3.68 L (3.93-5.22) M/uL Hgb 10.2 L (12.0-16.0) g/dl Hct 30.1 L (34.1-44.9) % MCV 81.8 (80.0-100.0) fL MCH 27.7 (25.0-34.0) pg MCHC 33.9 (32.0-36.0) g/dL RDW Std Deviation 39.2 (36.4-46.3) fL RDW Coeff of Km 13.1 (11.5-14.5) % Plt Count 226 (130-400) K/uL MPV 10.1 (9.4-12.3) fL Immature Gran % (Auto) 0.3 % Neut % (Auto) 63.0 % Lymph % (Auto) 28.0 % [place] % (Auto) 7.9 % Eos % (Auto) 0.3 % Baso % (Auto) 0.5 % Neut # (Auto) 3.89 (1.4-6.5) K/uL Lymph # (Auto) 1.73 (1.2-3.4) K/uL [place] # (Auto) 0.49 (0.24-0.82) K/uL Eos # (Auto) 0.02 (0-0.50) K/uL Baso # (Auto) 0.03 (0-0.2) K/uL Immature Gran # (Auto) 0.02 (0.00-0.02) K/uL Sodium 137 (136-145) mmol/L Potassium 3.5 (3.5-5.1) mmol/L Chloride 104 (98-107) mmol/L Carbon Dioxide 26 (21-32) mmol/L Anion Gap 7 (3-11) BUN 3 L (6-23) mg/dl Creatinine 0.70 (0.6-1.2) mg/dl Est Cr Clr Drug Dosing 136.5 ml/min Est GFR ( Amer) 139.6 ml/min Est GFR (Non-Af Amer) 120.4 ml/min BUN/Creatinine Ratio 4.3 L (10-20) Glucose 76 (70-99(Fasting)) mg/dl Calcium 8.6 (8.5-10.1) mg/dl Total Bilirubin 1.1 H (0.2-1.0) mg/dl AST 12 L (13-39) U/L ALT 6 L (7-52) U/L Alkaline Phosphatase 122 H (34-104) U/L Total Protein 6.2 (6.0-8.3) gm/dl Albumin 3.4 (3.4-5.0) gm/dl Globulin 2.8 (2.5-4.0) gm/dl Albumin/Globulin Ratio 1.2 (0.9-2) TSH 0.564 (0.300-4.500) uIu/ml Urine Color Urine Appearance (Clear) Urine pH (4.5-7.5) Ur Specific [place] (1.000-1.030) Urine Protein (Negative) Urine Glucose (UA) (Negative) Urine Ketones (Negative) Urine Blood (Negative) Urine Nitrite (Negative) Urine Bilirubin (Negative) Urine Urobilinogen (Negative) Ur Leukocyte Esterase (Negative) Urine WBC (Auto) (0-5) /hpf Urine RBC (Auto) (0-4) /hpf U Hyaline Cast (Auto) (0-5) /lpf U Epithel Cells (Auto) (0-5) /lpf Urine Bacteria (Auto) (Negative) Salicylates (3.0-30) mg/dl Urine Opiates Screen (Neg) Ur Methadone, Qual (Neg) Acetaminophen (10-30) ug/ml Urine Barbiturates (Neg) Ur Phencyclidine (PCP) (Neg) U Amphetamin/Meth Scrn (Neg) MDMA (Ecstasy) Screen (Neg) U Benzodiazepines Scrn (Neg) Ur Cocaine Metabolite (Neg) U Marijuana (THC) Screen (Neg) Ethyl Alcohol mg/dL (<10.0) mg/dl SARS-CoV-2, RNA, NAAT (NEGATIVE) 05/17/22 05/17/22 Range/Units 16:55 16:55 WBC (4.8-10.8) K/ul RBC (3.93-5.22) M/uL Hgb (12.0-16.0) g/dl Hct (34.1-44.9) % MCV (80.0-100.0) fL MCH (25.0-34.0) pg MCHC (32.0-36.0) g/dL RDW Std Deviation (36.4-46.3) fL RDW Coeff of Km (11.5-14.5) % Plt Count (130-400) K/uL MPV (9.4-12.3) fL Immature Gran % (Auto) % Neut % (Auto) % Lymph % (Auto) % [place] % (Auto) % Eos % (Auto) % Baso % (Auto) % Neut # (Auto) (1.4-6.5) K/uL Lymph # (Auto) (1.2-3.4) K/uL [place] # (Auto) (0.24-0.82) K/uL Eos # (Auto) (0-0.50) K/uL Baso # (Auto) (0-0.2) K/uL Immature Gran # (Auto) (0.00-0.02) K/uL Sodium (136-145) mmol/L Potassium (3.5-5.1) mmol/L Chloride (98-107) mmol/L Carbon Dioxide (21-32) mmol/L Anion Gap (3-11) BUN (6-23) mg/dl Creatinine (0.6-1.2) mg/dl Est Cr Clr Drug Dosing ml/min Est GFR ( Amer) ml/min Est GFR (Non-Af Amer) ml/min BUN/Creatinine Ratio (10-20) Glucose (70-99(Fasting)) mg/dl Calcium (8.5-10.1) mg/dl Total Bilirubin (0.2-1.0) mg/dl AST (13-39) U/L ALT (7-52) U/L Alkaline Phosphatase (34-104) U/L Total Protein (6.0-8.3) gm/dl Albumin (3.4-5.0) gm/dl Globulin (2.5-4.0) gm/dl Albumin/Globulin Ratio (0.9-2) TSH (0.300-4.500) uIu/ml Urine Color Urine Appearance (Clear) Urine pH (4.5-7.5) Ur Specific [place] (1.000-1.030) Urine Protein (Negative) Urine Glucose (UA) (Negative) Urine Ketones (Negative) Urine Blood (Negative) Urine Nitrite (Negative) Urine Bilirubin (Negative) Urine Urobilinogen (Negative) Ur Leukocyte Esterase (Negative) Urine WBC (Auto) (0-5) /hpf Urine RBC (Auto) (0-4) /hpf U Hyaline Cast (Auto) (0-5) /lpf U Epithel Cells (Auto) (0-5) /lpf Urine Bacteria (Auto) (Negative) Salicylates < 3.0 L (3.0-30) mg/dl Urine Opiates Screen (Neg) Ur Methadone, Qual (Neg) Acetaminophen < 3 L (10-30) ug/ml Urine Barbiturates (Neg) Ur Phencyclidine (PCP) (Neg) U Amphetamin/Meth Scrn (Neg) MDMA (Ecstasy) Screen (Neg) U Benzodiazepines Scrn (Neg) Ur Cocaine Metabolite (Neg) U Marijuana (THC) Screen (Neg) Ethyl Alcohol mg/dL < 10.0 (<10.0) mg/dl SARS-CoV-2, RNA, NAAT (NEGATIVE) Discharge Plan Visit Data Chief Complaint: Mental Health Evaluation Stated Complaint: MENTAL HEALTH EVALUATION ED Provider: Campos Marie Discharge Problem: Depression with suicidal ideation, Patient Disposition: Admitted As Inpatient Discharge Instructions Interventions: ED Discharge Assessment Last Done: 05/17/22 19:38
[2022-05-17 18:06] LABS: Amphetamines+Metham, Urine Neg (Neg); Barbiturates, Urine Neg (Neg); Benzodiazepine, Urine Neg (Neg); Cocaine, Urine Neg (Neg); MDMA (Ecstacy), Urine Neg (Neg); Methadone, Urine Neg (Neg); Opiate, Urine Neg (Neg); Phencyclidine, Urine Neg (Neg)
[2022-05-17] MEDS ORDERED: MELATONIN 3 MG TAB PO PRN (19:22)
[2022-05-17] MEDS ORDERED: ACETAMINOPHEN 325 MG TAB PO PRN (21:54)
[2022-05-17] MEDS ORDERED: SODIUM CHLORIDE 0.65% NA SOLN 45 ML (OCEAN) PRN (21:54)
[2022-05-17] MEDS ORDERED: CALCIUM CARBONATE 500 MG CHEWABLE TAB PO PRN (21:54)
--- NOTE | 2022-05-18 09:46 | History & Physical ---
Date of Service May 18, 2022 Impression / Recommendations Impression The patient is a 26 year old, currently 37 weeks with a history of PTSD and depression who was admitted for worsening depression and SI. Diagnostically consistent with MDD/yamilet- depression and PTSD. The patient is deemed unstable and requires psychiatric hospitalization for diagnostic clarification, safety and stabilization, medication management and development of further coping skills. Discussed medication treatment options in detail. Discussed risks, benefits and alternatives. Patient would like to start and consented to sertraline for MDD/ depression/hx post depression and PTSD. Reviewed side effects including but not limited to: GI, MANSFIELD, sexual side effects. Reviewed risks to fetus in third trimester including persistent pulmonary hypertension and poor adaption syndrome as well as data regarding use of SSRIs during breast feeding (felt to be low risk, generally safe for use during breast feeding). MNPR due to and high community prevalence of COVID. (1) Depression with suicidal ideation: (2) MDD (major depressive disorder), recurrent episode: (3) Post traumatic stress disorder (PTSD): Plan 05/18/22: The patient was admitted to the [facility] ([facility] mental [facility] unit) on q15 min checks (behavioral with suicide precautions) for safety. The patient will participate in group, recreational, and milieu therapies and will be offered additional individual and family sessions as clinically appropriate. -Blood glucose checks QID - vitamin -Sertraline 50mg qd Inventory Assets Strengths: supportive relationships, willing to get treatment, resilient Needs: safety and stabilization, medication adjustment, additional coping skills, increased outpatient services Suicide Risk Level Suicide Risk Level: High-Moderate (q15 min suicide checks) (High-Moderate due to severe depression with SI with plan prior to admission but feels safe in the hospital, able to safety contract and agrees to let nursing/staff know should they develop plan, intent or feel unable to remain safe. ) Risk Factors Assessment Do You Have Access To A Gun?: No Mental Health Diagnoses: Yes Previous Attempt: Yes Family History of Suicide: Yes (possible ) Previous Psychiatric Hospitalization: Yes Protective Factors Assessment Responsible for Young Children: Yes Employed: No Supportive Family: Yes Good Rapport with Provider: Yes Psychiatric History Identifying Data JERONIMO is a 26-year-old F who is currently 37 weeks , currently lives in [place] with her two year old daughter, has a history of depression, PTSD and was admitted on 05/17/22 19:21 on a 201 voluntary commitment for worsening depression and SI. Chief Complaint "I've tried to cope with it on my own but it got to the point where I can't cope with it on my own". History of Present Illness She presents for psychiatric admission for worsening depression and SI at the recommendation of her [facility] provider. She is currently 37 weeks and has been dealing with worsening depression and anxiety and wrote a suicide note three days ago due to feeling increasingly hopeless. Her daughter's paternal grandmother came into town to help with the upcoming of her child and is currently at home watching her two year old. She notes recent psychosocial stressors including and financial strain. Further recent history reviewed and confirmed as documented by ED CM note from 05/18/22: "Pt presents to the ER today d/t worsening depression and anxiety with suicidal thoughts. Pt states that she was last inpatient in 2013 and was dx with PTSD and depression. Pt is currently 37 weeks and has a 2 year old daughter at home. Pt has limited supports in this area as neither she nor the childrens father are from here, with most family approximately 3-4 hours away. Pt denies a plan or method but states she wrote a suicide note about 3 days ago. No current outpatient providers and no current medications. Denies AH/VH/HI. Denies self-injurious behaviors. Pt states she has dealt with depression and anxiety for most of her life and does not feel that she received the treatment she needed as a teen, resulting in her current worsening condition. Pt states her depression, anxiety, and suicidal thoughts have significantly worsened since becoming . Pt states that she knows she needs help because she feels she will be an ineffective parent to both children if not." She endorses depressive symptoms including very low appetite, tearfulness, anhedonia, decreased motivation, self-guilt, helplessness, hopelessness, decreased energy, and decreased sleep. SI has been occurring throughout her life but has worsened in the last few weeks. She notes her current unborn child and her daughter is a huge deterrent and very strong for living and getting help. She also endorses symptoms of anxiety including generalized worries, shakiness, easily overwhelmed. She endorse PTSD symptoms including intrusive memories/flashbacks which is variable, avoidance, hypervigilance, emotional lability, decreased concentration, decreased sleep/night terrors which happen a couple times each month last about 2 weeks ago. She is not currently prescribed any psychiatric medications. Psychiatric ROS notable for no current nor history of symptoms of rosi, psychosis, nor eating disorder. History of PTSD from past trauma. Past Psychiatric History Current Psychiatric Diagnosis: MDD, history of post- depression after daughter's Outpatient Services: none currently Previous Psych Admissions: Jun [facility] Do You Have Access To A Gun?: No History of Previous Suicide Attempt: Yes Describe Attempts in the Past: Jun 2014 via overdose Past Medication Trials: history of one trial of an antidepressant during Jun 2014 but didn't take any medication after discharge Past Head Trauma/Neuro History History of Concussion/Seizure: Yes (sports related concussions during youth/adolescence ) Allergies Allergy/AdvReac Type Severity Reaction Status Date / Time bee venom protein (honey bee) Allergy Severe Anaphylaxis Verified 08/28/21 07:32 bacitracin AdvReac Intermediate Rash Verified 08/28/21 07:32 Home Medications Medication Instructions Recorded Confirmed Type No Known Home Medications 05/17/22 05/17/22 History Family History Family History of: Depression (maternal and paternal ), Other-List under Comment (brother with ADHD ) and Suicide Completion (possible, she can't remember ) Family Mental Health History Comment: Alcohol History Hx of Alcohol Use Over the Past 12 Months: No AUDIT Total Score: 0 Smoking Use Have You Smoked or Used Tobacco Products in the Last 30 Days: No Smoking Status: Never smoker Substance History Hx of Prescription Med Misuse Over the Past 12 Months: No Hx of Over the Counter Med Misuse Over the Past 12 Months: No Hx of Inhalent Misuse Over the Past 12 Months: No Hx of Organic Substance Use Over the Past 12 Months: Yes (MJ in the last month.) Hx of Illegal Substances/Street Drug Use Over Past 12 Months: No Problems as a Result of Past Substance Use: None Identified Personal History Living Arrangements: Apartment Childhood: No relationship with her mother. She is close with her father who she feels is supportive. Her father lives in [place]. She's originally from [facility]. Also very close with her younger sister. Has 4 sisters and 6 brothers. Highest Grade Completed: High School Graduate Employment Status: Unemployed Marital Status: Single Number Of Children: 1 daughter Summer age 2 Beliefs That Will Affect Care: None Current Legal Problems: No Hx Legal Problems: No (history of PFA against father of her children, not currently ) Hx Traumatic Life Events: Yes Patient History Medical History Marijuana smoker No significant medical problems Surgical History H/O wisdom tooth extraction Social History Smoking Status: Never smoker Second Hand Exposure: No; Hx Alcohol Use: No Hx Substance Use: No Preferred Language: German Communication Ability: Effective Visual Impairment: No Limitations Hearing Ability: Normal Client Service Coordinator Required: No Beliefs That Will Affect Care: None marital status: Single Current Living Situation: Significant Other Current Living Situation Comment: lives with boyfriend current occupational status: employed Feels Safe at Home: Yes Assistive Devices: None Review of Systems Review of Systems: All systems reviewed & are unremarkable except as noted in HPI & below (she wonders if she may be having mild contractions ) Physical Exam Psychiatric: Orientation: alert and oriented x 3 Apperance: appropriately dressed and appropriately groomed Eye Contact: good eye contact Motor Behavior: no abnormal motor movements Speech: normal rate/rhythm/volume of speech Affect: + depressed affect Mood: + depressed mood and + anxious mood Thought Process: goal directed thought process Thought Content: reality based without delusions Suicidal Thoughts: denies suicidal plan and denies suicidal intent; + reports suicidal thoughts (intermittent thoughts ) Homicidal Thoughts: denies homicidal thoughts Hallucinations: no auditory hallucinations and no visual hallucinations Cognition: recent memory grossly intact, remote memory grossly intact, attention grossly intact and language grossly intact Estimated Intelligence: consistent with education level Insight: + fair insight Judgement: + fair judgement Vital Signs (Past 24 Hours): Last Vital Signs Temp 36.5 C 05/18/22 06:00 Pulse 69 05/18/22 06:00 Resp 18 05/18/22 06:00 BP 85/46 L 05/18/22 06:00 Pulse Ox 99 05/17/22 20:54 O2 Del Method 05/17/22 20:54 Exam Statement: A physical exam was performed in the ED by Dr. Marie for the purposes of medical clearance. I accept that physical as correct and adequate for the purposes of the inpatient physical exam. Results & Data ([facility]) Laboratory Results Laboratory Results - last 24 hr 05/17/22 05/17/22 05/17/22 16:47 16:47 16:47 WBC RBC Hgb Hct MCV MCH MCHC RDW Std Deviation RDW Coeff of Km Plt Count MPV Immature Gran % (Auto) Neut % (Auto) Lymph % (Auto) Mower % (Auto) Eos % (Auto) Baso % (Auto) Neut # (Auto) Lymph # (Auto) Mower # (Auto) Eos # (Auto) Baso # (Auto) Immature Gran # (Auto) Sodium Potassium Chloride Carbon Dioxide Anion Gap BUN Creatinine Est Cr Clr Drug Dosing Est GFR ( Amer) Est GFR (Non-Af Amer) BUN/Creatinine Ratio Glucose POC Glucose Calcium Total Bilirubin AST ALT Alkaline Phosphatase Total Protein Albumin Globulin Albumin/Globulin Ratio TSH Urine Color Yellow Urine Appearance Cloudy A Urine pH 6.5 Ur Specific [place] 1.011 Urine Protein Negative Urine Glucose (UA) Negative Urine Ketones 1+ H Urine Blood Negative Urine Nitrite Negative Urine Bilirubin Negative Urine Urobilinogen Negative Ur Leukocyte Esterase Negative Urine WBC (Auto) 10-30 H Urine RBC (Auto) 0-4 U Hyaline Cast (Auto) 1-5 U Epithel Cells (Auto) >30 H Urine Bacteria (Auto) 1+ H Salicylates Urine Opiates Screen Neg Ur Methadone, Qual Neg Acetaminophen Urine Barbiturates Neg Ur Phencyclidine (PCP) Neg U Amphetamin/Meth Scrn Neg MDMA (Ecstasy) Screen Neg U Benzodiazepines Scrn Neg Ur Cocaine Metabolite Neg U Marijuana (THC) Screen Pos H U Marijuana THC Carboxy Drug Screen Comment Ethyl Alcohol mg/dL SARS-CoV-2, RNA, NAAT NEGATIVE 05/17/22 05/17/22 05/17/22 16:47 16:55 16:55 WBC 6.18 RBC 3.68 L Hgb 10.2 L Hct 30.1 L MCV 81.8 MCH 27.7 MCHC 33.9 RDW Std Deviation 39.2 RDW Coeff of Km 13.1 Plt Count 226 MPV 10.1 Immature Gran % (Auto) 0.3 Neut % (Auto) 63.0 Lymph % (Auto) 28.0 Mower % (Auto) 7.9 Eos % (Auto) 0.3 Baso % (Auto) 0.5 Neut # (Auto) 3.89 Lymph # (Auto) 1.73 Mower # (Auto) 0.49 Eos # (Auto) 0.02 Baso # (Auto) 0.03 Immature Gran # (Auto) 0.02 Sodium 137 Potassium 3.5 Chloride 104 Carbon Dioxide 26 Anion Gap 7 BUN 3 L Creatinine 0.70 Est Cr Clr Drug Dosing 136.5 Est GFR ( Amer) 139.6 Est GFR (Non-Af Amer) 120.4 BUN/Creatinine Ratio 4.3 L Glucose 76 POC Glucose Calcium 8.6 Total Bilirubin 1.1 H AST 12 L ALT 6 L Alkaline Phosphatase 122 H Total Protein 6.2 Albumin 3.4 Globulin 2.8 Albumin/Globulin Ratio 1.2 TSH Urine Color Urine Appearance Urine pH Ur Specific [place] Urine Protein Urine Glucose (UA) Urine Ketones Urine Blood Urine Nitrite Urine Bilirubin Urine Urobilinogen Ur Leukocyte Esterase Urine WBC (Auto) Urine RBC (Auto) U Hyaline Cast (Auto) U Epithel Cells (Auto) Urine Bacteria (Auto) Salicylates Urine Opiates Screen Ur Methadone, Qual Acetaminophen Urine Barbiturates Ur Phencyclidine (PCP) U Amphetamin/Meth Scrn MDMA (Ecstasy) Screen U Benzodiazepines Scrn Ur Cocaine Metabolite U Marijuana (THC) Screen U Marijuana THC Carboxy Pending Drug Screen Comment Pending Ethyl Alcohol mg/dL SARS-CoV-2, RNA, NAAT 05/17/22 05/17/22 05/17/22 16:55 16:55 16:55 WBC RBC Hgb Hct MCV MCH MCHC RDW Std Deviation RDW Coeff of Km Plt Count MPV Immature Gran % (Auto) Neut % (Auto) Lymph % (Auto) Mower % (Auto) Eos % (Auto) Baso % (Auto) Neut # (Auto) Lymph # (Auto) Mower # (Auto) Eos # (Auto) Baso # (Auto) Immature Gran # (Auto) Sodium Potassium Chloride Carbon Dioxide Anion Gap BUN Creatinine Est Cr Clr Drug Dosing Est GFR ( Amer) Est GFR (Non-Af Amer) BUN/Creatinine Ratio Glucose POC Glucose Calcium Total Bilirubin AST ALT Alkaline Phosphatase Total Protein Albumin Globulin Albumin/Globulin Ratio TSH 0.564 Urine Color Urine Appearance Urine pH Ur Specific [place] Urine Protein Urine Glucose (UA) Urine Ketones Urine Blood Urine Nitrite Urine Bilirubin Urine Urobilinogen Ur Leukocyte Esterase Urine WBC (Auto) Urine RBC (Auto) U Hyaline Cast (Auto) U Epithel Cells (Auto) Urine Bacteria (Auto) Salicylates < 3.0 L Urine Opiates Screen Ur Methadone, Qual Acetaminophen < 3 L Urine Barbiturates Ur Phencyclidine (PCP) U Amphetamin/Meth Scrn MDMA (Ecstasy) Screen U Benzodiazepines Scrn Ur Cocaine Metabolite U Marijuana (THC) Screen U Marijuana THC Carboxy Drug Screen Comment Ethyl Alcohol mg/dL < 10.0 SARS-CoV-2, RNA, NAAT 05/18/22 08:53 WBC RBC Hgb Hct MCV MCH MCHC RDW Std Deviation RDW Coeff of Km Plt Count MPV Immature Gran % (Auto) Neut % (Auto) Lymph % (Auto) Mower % (Auto) Eos % (Auto) Baso % (Auto) Neut # (Auto) Lymph # (Auto) Mower # (Auto) Eos # (Auto) Baso # (Auto) Immature Gran # (Auto) Sodium Potassium Chloride Carbon Dioxide Anion Gap BUN Creatinine Est Cr Clr Drug Dosing Est GFR ( Amer) Est GFR (Non-Af Amer) BUN/Creatinine Ratio Glucose POC Glucose 95 Calcium Total Bilirubin AST ALT Alkaline Phosphatase Total Protein Albumin Globulin Albumin/Globulin Ratio TSH Urine Color Urine Appearance Urine pH Ur Specific [place] Urine Protein Urine Glucose (UA) Urine Ketones Urine Blood Urine Nitrite Urine Bilirubin Urine Urobilinogen Ur Leukocyte Esterase Urine WBC (Auto) Urine RBC (Auto) U Hyaline Cast (Auto) U Epithel Cells (Auto) Urine Bacteria (Auto) Salicylates Urine Opiates Screen Ur Methadone, Qual Acetaminophen Urine Barbiturates Ur Phencyclidine (PCP) U Amphetamin/Meth Scrn MDMA (Ecstasy) Screen U Benzodiazepines Scrn Ur Cocaine Metabolite U Marijuana (THC) Screen U Marijuana THC Carboxy Drug Screen Comment Ethyl Alcohol mg/dL SARS-CoV-2, RNA, NAAT Current Inpatient Medications Current Inpatient Medications: Current Inpatient Medications Acetaminophen (Acetaminophen 325 Mg Tab) 650 mg PO Q4H PRN PRN Reason: Headache or Minor Fever Stop: 06/16/22 21:53 Calcium Carbonate (Calcium Carbonate 500 Mg Chewable Tab) 500 mg PO DAILY PRN PRN Reason: Indigestion Stop: 06/16/22 21:53 Diphenhydramine HCl (Diphenhydramine Capsule 25 Mg Cap) 50 mg PO HS PRN PRN Reason: insomnia Stop: 06/16/22 21:57 Sodium Chloride (Sodium Chloride 0.65% Na Soln 45 Ml ([place])) 1 - 2 sprays NA PRN PRN PRN Reason: Nasal Dryness/Congestion Stop: 06/16/22 21:53
[2022-05-18] MEDS: SERTRALINE HCL 50 MG TABLET PO SCH (13:29)
[2022-05-18] MEDS: PRENATAL VITAMIN 1 TAB PO SCH (17:43)
[2022-05-18] MEDS: diphenhydrAMINE Capsule 25 MG CAP PO PRN (22:24)
--- NOTE | 2022-05-19 09:32 | Psychiatric Progress Note ---
Date of Service May 19, 2022 Impression / Recommendations Impression The patient is a 26 year old, currently 37 weeks with a history of PTSD and depression who was admitted for worsening depression and SI. Diagnostically consistent with MDD/yamilet- depression and PTSD. The patient is deemed unstable and requires psychiatric hospitalization for diagnostic clarification, safety and stabilization, medication management and development of further coping skills. MNPR due to and high community prevalence of COVID. 05/19/22: Increased irritability today which seems to be related to desire to discharge, she signed 72 hour notice yesterday, but certainly may represent component of depression. She is minimizing symptoms she discussed prior to admission and during admission interview yesterday and degree of depression and SI that she expressed yesterday, seemingly due to the challenge of missing her daughter which is understandable. However, given her chronic non-modifiable risk factors for suicide (prior attempt, possible family hx by suicide, hx prior psych hospitalization, co-morbid psychiatric conditions of MDD and PTSD) as well as ongoing acute stressors leading to admission including current depression, recent SI and suicide note prior to admission, and now just started on sertraline and ongoing modifiable risk factors including lack of outpatient providers and challenge of weekend inability to contact current outpatient providers, I do not feel she is safe for discharge today and reviewed with her that goal of 72 hour notice is to allow for safe discharge planning and reduce risk for impulsive decision making which can also contribute to higher acute and chronic risk of self-harm. Reviewed with her goal for discharge tomorrow if she continues to have no further SI, continues to tolerate the medications and to allow for collaboration with outpatient services. (1) Depression with suicidal ideation: (2) MDD (major depressive disorder), recurrent episode: (3) Post traumatic stress disorder (PTSD): Plan 05/19/22: Continue with current medications and tx plan. Family meeting held. 05/18/22: The patient was admitted to the [facility] ([facility] inpatient mental health unit) on q15 min checks (behavioral with suicide precautions) for safety. The patient will participate in group, recreational, and milieu therapies and will be offered additional individual and family sessions as clinically appropriate. -Blood glucose checks QID - vitamin -Sertraline 50mg qd Inventory Assets Strengths: supportive relationships, willing to get treatment, resilient Needs: safety and stabilization, medication adjustment, additional coping skills, increased outpatient services Suicide Risk Level Suicide Risk Level: High-Moderate (q15 min suicide checks) Suicide Risk Level Comments: High-Moderate due to severe depression with SI prior to admission and ongoing isolation and irritability but denies SI today Risk Factors Assessment Do You Have Access To A Gun?: No Mental Health Diagnoses: Yes Previous Attempt: Yes Family History of Suicide: Yes (possible ) Previous Psychiatric Hospitalization: Yes Protective Factors Assessment Responsible for Young Children: Yes Employed: No Supportive Family: Yes Good Rapport with Provider: Yes Interval History Identifying Information JERONIMO is a 26-year-old F who is currently 37 weeks , currently lives in [place] with her two year old daughter, has a history of depression, PTSD and was admitted on 05/17/22 19:21 on a 201 voluntary commitment for worsening depression and SI. Chief Complaint "I don't want to be here anymore, it's not helping anything". Review of Systems Sleep Information Total Hours of Sleep: 6.5 Meal Information Percent Meal Consumed - Breakfast: 0 Percent Meal Consumed - Lunch: 75 Subjective Subjective Patient was seen & assessed and interval progress reviewed with treatment team nursing and social work. Signed 72 hour notice which expires on 05/21/22. Facetimed with her daughter last night. Blood sugars are stable. Did attend group therapy and community meeting, otherwise isolative to her room and declining groups. Took prn benadryl last night for insomnia. Doesn't like the hospital food, not eating much. Today very focused on desire to discharge. She denies SI, continues to feel depressed and feels inpatient setting is adding to this as she is away from her daughter who she misses. She denies any side effects from sertraline. Feels a little tired today which she attributes to having taken the prn benadryl last n ight for insomnia that caused grogginess today. With significant nursing encouragement she did work on her safety plan. Family meeting held with her father and sister. Understandably frustrated by 72 hour notice, as we discuss that under [place] voluntary mental health law, she can be held up to 72 hours after signing 72 hour notice. Discussed my goal to discharge her as soon as possible but also my concerns about ongoing modifiable risk factors including lack of outpatient providers and challenge of inability for social work to coordinate with outpatient providers and establish new outpatient supports given weekend and concern for ongoing depression, irritability, low appetite, limited engagement with groups nor RNs/counselors to allow for increased coping skills. She remained very frustrated noting that not being able to leave immediately makes her feel trapped. Empathized with this and that my goal is not to make this hospitalization feel punitive nor counter therapeutic but that I continue to have concerns about her safety especially without outpatient care and her limited engagement since admission. Discussed ways to try to make her stay better/more therapeutic including option to again facetime with her daughter, option for individualized time with our [facility] counselors, option to have food she prefers delivered but she remained focused on need to discharge right away. She then endorsed increased pelvic pain and requested OB involvement. I contacted [facility] provider special investigation unit investigator who recommended NST via L&D nurse. Relayed this to Heller who expressed appreciation for this. However, when L&D arrived on U, a few minutes later, Heller declined the monitoring. Multiple [facility] providers met with her in an attempt to discuss ways to make her stay more therapeutic and to support her and consider ways to help her with her depression. Physical Exam Psychiatric Orientation: alert and oriented x 3 Apperance: appropriately dressed and appropriately groomed Eye Contact: good eye contact Motor Behavior: no abnormal motor movements Speech: normal rate/rhythm/volume of speech Affect: + depressed affect, + irritable affect and + angry affect Mood: + depressed mood and + irritable mood Thought Process: + perseveration Thought Content: reality based without delusions Suicidal Thoughts: denies suicidal thoughts, denies suicidal plan and denies suicidal intent Homicidal Thoughts: denies homicidal thoughts Hallucinations: no auditory hallucinations and no visual hallucinations Cognition: recent memory grossly intact, remote memory grossly intact, attention grossly intact and language grossly intact Estimated Intelligence: consistent with education level Insight: + limited insight Judgement: + limited judgement Vital Signs (Past 24 Hours) Last Vital Signs Temp 37.0 C 05/19/22 06:00 Pulse 77 05/19/22 06:46 Resp 18 05/19/22 06:00 BP 103/61 05/19/22 06:46 Pulse Ox 99 05/17/22 20:54 O2 Del Method 05/17/22 20:54 Results & Data ([facility]) Laboratory Results Laboratory Results - last 24 hr 05/18/22 05/18/22 05/18/22 12:46 17:17 21:43 POC Glucose 91 84 99 Current Inpatient Medications Current Inpatient Medications: Current Inpatient Medications Acetaminophen (Acetaminophen 325 Mg Tab) 650 mg PO Q4H PRN PRN Reason: Headache or Minor Fever Stop: 06/16/22 21:53 Calcium Carbonate (Calcium Carbonate 500 Mg Chewable Tab) 500 mg PO DAILY PRN PRN Reason: Indigestion Stop: 06/16/22 21:53 Diphenhydramine HCl (Diphenhydramine Capsule 25 Mg Cap) 50 mg PO HS PRN PRN Reason: insomnia Stop: 06/16/22 21:57 Last Admin: 05/18/22 22:24 Dose: 50 mg Prenat Multivit/Blend Plant Operator/Iron/Folic Ac ( Vitamin 1 Tab) 1 tab PO QAM JAMES Stop: 06/17/22 14:59 Last Admin: 05/18/22 17:43 Dose: 1 tab Sertraline HCl (Sertraline Hcl 50 Mg Tablet) 50 mg PO QAM JAMES Stop: 06/17/22 13:29 Last Admin: 05/18/22 13:29 Dose: 50 mg Sodium Chloride (Sodium Chloride 0.65% Na Soln 45 Ml ([place])) 1 - 2 sprays NA PRN PRN PRN Reason: Nasal Dryness/Congestion Stop: 06/16/22 21:53 Post Discharge Appointments Primary Care Physician Name Of Family Doctor: Dr. Andrea Carmona
[2022-05-19] MEDS: SERTRALINE HCL 50 MG TABLET PO SCH (09:36)
[2022-05-19] MEDS: PRENATAL VITAMIN 1 TAB PO SCH (09:36)
--- NOTE | 2022-05-19 18:16 | Obstetrical Progress Note ---
Date of Service May 19, 2022 Assessment & Plan Admission and Anticipated Discharge Date Admission Date: May 17, 2022 Subjective I was called by patient's physician that she wants to be seen by OB department. It was recommended for her not to leave psychiatry department. OB nursing team took NST machine to her room but patient refused to be monitored nor touched. Please see mental health notes for details of encounter. Please call back if she has contractions, LOF/VB or decreased movement. Results & Data ([facility]) Vital Signs (Past 12 Hours) Vital Signs Pulse BP 05/19/22 06:46 77 103/61
[2022-05-19] MEDS: diphenhydrAMINE Capsule 25 MG CAP PO PRN (21:24)
[2022-05-20 06:41] LABS: Marijuana Quant, GCMS Urine 84 ng/mL (<5)
--- NOTE | 2022-05-20 09:57 | Discharge Summary ---
Date of Service May 20, 2022 History of Present Illness She presents for psychiatric admission for worsening depression and SI at the recommendation of her OB-FOOD AND NUTRITION TEACHER provider. She is currently 37 weeks and has been dealing with worsening depression and anxiety and wrote a suicide note three days ago due to feeling increasingly hopeless. Her daughter's paternal grandmother came into town to help with the upcoming of her child and is currently at home watching her two year old. She notes recent psychosocial stressors including and financial strain. Further recent history reviewed and confirmed as documented by ED CM note from 05/18/22: "Pt presents to the ER today d/t worsening depression and anxiety with suicidal thoughts. Pt states that she was last inpatient in 2013 and was dx with PTSD and depression. Pt is currently 37 weeks and has a 2 year old d aughter at home. Pt has limited supports in this area as neither she nor the childrens father are from here, with most family approximately 3-4 hours away. Pt denies a plan or method but states she wrote a suicide note about 3 days ago. No current outpatient providers and no current medications. Denies AH/VH/HI. Denies self-injurious behaviors. Pt states she has dealt with depression and anxiety for most of her life and does not feel that she received the treatment she needed as a teen, resulting in her current worsening condition. Pt states her depression, anxiety, and suicidal thoughts have significantly worsened since becoming . Pt states that she knows she needs help because she feels she will be an ineffective parent to both children if not." She endorses depressive symptoms including very low appetite, tearfulness, anhedonia, decreased motivation, self-guilt, helplessness, hopelessness, decreased energy, and decreased sleep. SI has been occurring throughout her life but has worsened in the last few weeks. She notes her current unborn child and her daughter is a huge deterrent and very strong for living and getting help. She also endorses symptoms of anxiety including generalized worries, shakiness, easily overwhelmed. She endorse PTSD symptoms including intrusive memories/flashbacks which is variable, avoidance, hypervigilance, emotional lability, decreased concentration, decreased sleep/night terrors which happen a couple times each month last about 2 weeks ago. She is not currently prescribed any psychiatric medications. Psychiatric ROS notable for no current nor history of symptoms of rosi, psychosis, nor eating disorder. History of PTSD from past trauma. Physical Exam Vital Signs (Past 24 Hours) Last Vital Signs Temp 37 C 05/20/22 06:49 Pulse 74 05/20/22 06:49 Resp 16 05/20/22 06:49 BP 107/65 05/20/22 06:49 Pulse Ox 99 05/17/22 20:54 O2 Del Method 05/17/22 20:54 See admission H&P and DOD summary. Principal Diagnosis Major Depressive Disorder/Dyana- depression Psychiatric Data See daily stay summary. In short, patient was initially reluctant to attend groups but did engage intermittently with the social/therapeutic milieu of the unit, safety was maintained and the patient was cooperative with care. She was irritable on 05/19/22 as she desired discharge due to missing her daughter and signed a 72 hour notice but ultimately expressed appreciation for staying until today so that aftercare appointments and outpatient providers could be established and her mood improved and she was more engaged with groups. Medication changes included initiation of sertraline 50mg per day and they tolerated this well. A family session was held and safety plan was completed prior to discharge. She participated in safety planning and in discussions about ways to seek support and recognizing warning signs and utilizing coping skills. Reviewed mobile apps that could be used for additional ways to have their safety plan and contacts easily available should thoughts of SI re-emerge in the future. Reviewed importance of seeking emergency care should SI intensify, worsen or should they feel unsafe in the future which they agree to do. On the day of discharge she stated her mood was "good" and remained future-oriented including seeing her daughter, meeting her new child soon, and possibly moving to be closer to family at some point and engaging in aftercare appointments for psychiatry, therapy, OBGYN care and case management. Day of Discharge Assessment Today the patient voices readiness for discharge. They note improvement in mood. They deny thoughts of harm to self or others. Thoughts are organized and they are clinically improved from admission. There is no evidence of psychosis. They improved in the hospital with support and medication adjustments. They agree to take medications as prescribed and keep follow-up appointments. At the time of the discharge they are deemed to be stable and appropriate for outpatient level of care. They are not deemed to be at imminent risk of harm to self or others. They are aware of emergency and crisis services. Knows to call 911 or go to nearest emergency care center if in a crisis which cannot be handled as an outpatient. Transition of Care Transition Of Care Record: was reviewed with the patient Advance Directives Advance Directives Information Provided: Yes Advance Directives: No Mental Health Advance Directive: No Advance Directives on File: No Living Will: No Power of Casting House Worker: No Advance Directives Reason:: Declines as Mental Health Visit. Suicide Risk Level Suicide Risk Level Comments: Acute risk is low given improvement in mood and denial of SI, lack of access to lethal means, hopefulness. Chronic risk is moderate given some non-modifiable risk factors: psychiatric co-morbid diagnoses, periods of impulsivity, prior attempt, emotional reactivity, prior psychiatric hospitalizations, childhood trauma and possible family history of by suicide but also with protective factors including strong deterrent of her children. Counseled on ways to reduce acute and chronic risk including engaging with outpatient providers, using safety plan if needed, utilizing supports, taking medication, and using coping skills. Modifiable risk factors of SI and depression were addressed during hospitalization through development of new coping skills, family meeting, safety planning, and medication adjustments. Risk Factors Assessment Do You Have Access To A Gun?: No Mental Health Diagnoses: Yes Previous Attempt: Yes Family History of Suicide: Yes (possible ) Previous Psychiatric Hospitalization: Yes Hopelessness: No Protective Factors Assessment Responsible for Young Children: Yes Employed: No Stable Relationships: Yes Supportive Family: Yes Good Rapport with Provider: Yes Discharge Data Lab Results 05/17/22 05/17/22 05/17/22 16:47 16:47 16:47 WBC RBC Hgb Hct MCV MCH MCHC RDW Std Deviation RDW Coeff of Km Plt Count MPV Immature Gran % (Auto) Neut % (Auto) Lymph % (Auto) [place] % (Auto) Eos % (Auto) Baso % (Auto) Neut # (Auto) Lymph # (Auto) [place] # (Auto) Eos # (Auto) Baso # (Auto) Immature Gran # (Auto) Sodium Potassium Chloride Carbon Dioxide Anion Gap BUN Creatinine Est Cr Clr Drug Dosing Est GFR ( Amer) Est GFR (Non-Af Amer) BUN/Creatinine Ratio Glucose POC Glucose Calcium Total Bilirubin AST ALT Alkaline Phosphatase Total Protein Albumin Globulin Albumin/Globulin Ratio TSH Urine Color Yellow Urine Appearance Cloudy A Urine pH 6.5 Ur Specific Ronda 1.011 Urine Protein Negative Urine Glucose (UA) Negative Urine Ketones 1+ H Urine Blood Negative Urine Nitrite Negative Urine Bilirubin Negative Urine Urobilinogen Negative Ur Leukocyte Esterase Negative Urine WBC (Auto) 10-30 H Urine RBC (Auto) 0-4 U Hyaline Cast (Auto) 1-5 U Epithel Cells (Auto) >30 H Urine Bacteria (Auto) 1+ H Salicylates Urine Opiates Screen Neg Ur Methadone, Qual Neg Acetaminophen Urine Barbiturates Neg Ur Phencyclidine (PCP) Neg U Amphetamin/Meth Scrn Neg MDMA (Ecstasy) Screen Neg U Benzodiazepines Scrn Neg Ur Cocaine Metabolite Neg U Marijuana (THC) Screen Pos H U Marijuana THC Carboxy Drug Screen Comment Ethyl Alcohol mg/dL SARS-CoV-2, RNA, NAAT NEGATIVE 05/17/22 05/17/22 05/17/22 16:47 16:55 16:55 WBC 6.18 RBC 3.68 L Hgb 10.2 L Hct 30.1 L MCV 81.8 MCH 27.7 MCHC 33.9 RDW Std Deviation 39.2 RDW Coeff of Km 13.1 Plt Count 226 MPV 10.1 Immature Gran % (Auto) 0.3 Neut % (Auto) 63.0 Lymph % (Auto) 28.0 [place] % (Auto) 7.9 Eos % (Auto) 0.3 Baso % (Auto) 0.5 Neut # (Auto) 3.89 Lymph # (Auto) 1.73 [place] # (Auto) 0.49 Eos # (Auto) 0.02 Baso # (Auto) 0.03 Immature Gran # (Auto) 0.02 Sodium 137 Potassium 3.5 Chloride 104 Carbon Dioxide 26 Anion Gap 7 BUN 3 L Creatinine 0.70 Est Cr Clr Drug Dosing 136.5 Est GFR ( Amer) 139.6 Est GFR (Non-Af Amer) 120.4 BUN/Creatinine Ratio 4.3 L Glucose 76 POC Glucose Calcium 8.6 Total Bilirubin 1.1 H AST 12 L ALT 6 L Alkaline Phosphatase 122 H Total Protein 6.2 Albumin 3.4 Globulin 2.8 Albumin/Globulin Ratio 1.2 TSH Urine Color Urine Appearance Urine pH Ur Specific Ronda Urine Protein Urine Glucose (UA) Urine Ketones Urine Blood Urine Nitrite Urine Bilirubin Urine Urobilinogen Ur Leukocyte Esterase Urine WBC (Auto) Urine RBC (Auto) U Hyaline Cast (Auto) U Epithel Cells (Auto) Urine Bacteria (Auto) Salicylates Urine Opiates Screen Ur Methadone, Qual Acetaminophen Urine Barbiturates Ur Phencyclidine (PCP) U Amphetamin/Meth Scrn MDMA (Ecstasy) Screen U Benzodiazepines Scrn Ur Cocaine Metabolite U Marijuana (THC) Screen U Marijuana THC Carboxy 84 H Drug Screen Comment SEE NOTE Ethyl Alcohol mg/dL SARS-CoV-2, RNA, NAAT 05/17/22 05/17/22 05/17/22 16:55 16:55 16:55 WBC RBC Hgb Hct MCV MCH MCHC RDW Std Deviation RDW Coeff of Km Plt Count MPV Immature Gran % (Auto) Neut % (Auto) Lymph % (Auto) [place] % (Auto) Eos % (Auto) Baso % (Auto) Neut # (Auto) Lymph # (Auto) [place] # (Auto) Eos # (Auto) Baso # (Auto) Immature Gran # (Auto) Sodium Potassium Chloride Carbon Dioxide Anion Gap BUN Creatinine Est Cr Clr Drug Dosing Est GFR ( Amer) Est GFR (Non-Af Amer) BUN/Creatinine Ratio Glucose POC Glucose Calcium Total Bilirubin AST ALT Alkaline Phosphatase Total Protein Albumin Globulin Albumin/Globulin Ratio TSH 0.564 Urine Color Urine Appearance Urine pH Ur Specific Ronda Urine Protein Urine Glucose (UA) Urine Ketones Urine Blood Urine Nitrite Urine Bilirubin Urine Urobilinogen Ur Leukocyte Esterase Urine WBC (Auto) Urine RBC (Auto) U Hyaline Cast (Auto) U Epithel Cells (Auto) Urine Bacteria (Auto) Salicylates < 3.0 L Urine Opiates Screen Ur Methadone, Qual Acetaminophen < 3 L Urine Barbiturates Ur Phencyclidine (PCP) U Amphetamin/Meth Scrn MDMA (Ecstasy) Screen U Benzodiazepines Scrn Ur Cocaine Metabolite U Marijuana (THC) Screen U Marijuana THC Carboxy Drug Screen Comment Ethyl Alcohol mg/dL < 10.0 SARS-CoV-2, RNA, NAAT 05/18/22 05/18/22 05/18/22 08:53 12:46 17:17 WBC RBC Hgb Hct MCV MCH MCHC RDW Std Deviation RDW Coeff of Km Plt Count MPV Immature Gran % (Auto) Neut % (Auto) Lymph % (Auto) [place] % (Auto) Eos % (Auto) Baso % (Auto) Neut # (Auto) Lymph # (Auto) [place] # (Auto) Eos # (Auto) Baso # (Auto) Immature Gran # (Auto) Sodium Potassium Chloride Carbon Dioxide Anion Gap BUN Creatinine Est Cr Clr Drug Dosing Est GFR ( Amer) Est GFR (Non-Af Amer) BUN/Creatinine Ratio Glucose POC Glucose 95 91 84 Calcium Total Bilirubin AST ALT Alkaline Phosphatase Total Protein Albumin Globulin Albumin/Globulin Ratio TSH Urine Color Urine Appearance Urine pH Ur Specific Ronda Urine Protein Urine Glucose (UA) Urine Ketones Urine Blood Urine Nitrite Urine Bilirubin Urine Urobilinogen Ur Leukocyte Esterase Urine WBC (Auto) Urine RBC (Auto) U Hyaline Cast (Auto) U Epithel Cells (Auto) Urine Bacteria (Auto) Salicylates Urine Opiates Screen Ur Methadone, Qual Acetaminophen Urine Barbiturates Ur Phencyclidine (PCP) U Amphetamin/Meth Scrn MDMA (Ecstasy) Screen U Benzodiazepines Scrn Ur Cocaine Metabolite U Marijuana (THC) Screen U Marijuana THC Carboxy Drug Screen Comment Ethyl Alcohol mg/dL SARS-CoV-2, RNA, NAAT 05/18/22 05/19/22 05/19/22 21:43 09:34 11:42 WBC RBC Hgb Hct MCV MCH MCHC RDW Std Deviation RDW Coeff of Km Plt Count MPV Immature Gran % (Auto) Neut % (Auto) Lymph % (Auto) [place] % (Auto) Eos % (Auto) Baso % (Auto) Neut # (Auto) Lymph # (Auto) [place] # (Auto) Eos # (Auto) Baso # (Auto) Immature Gran # (Auto) Sodium Potassium Chloride Carbon Dioxide Anion Gap BUN Creatinine Est Cr Clr Drug Dosing Est GFR ( Amer) Est GFR (Non-Af Amer) BUN/Creatinine Ratio Glucose POC Glucose 99 87 85 Calcium Total Bilirubin AST ALT Alkaline Phosphatase Total Protein Albumin Globulin Albumin/Globulin Ratio TSH Urine Color Urine Appearance Urine pH Ur Specific Ronda Urine Protein Urine Glucose (UA) Urine Ketones Urine Blood Urine Nitrite Urine Bilirubin Urine Urobilinogen Ur Leukocyte Esterase Urine WBC (Auto) Urine RBC (Auto) U Hyaline Cast (Auto) U Epithel Cells (Auto) Urine Bacteria (Auto) Salicylates Urine Opiates Screen Ur Methadone, Qual Acetaminophen Urine Barbiturates Ur Phencyclidine (PCP) U Amphetamin/Meth Scrn MDMA (Ecstasy) Screen U Benzodiazepines Scrn Ur Cocaine Metabolite U Marijuana (THC) Screen U Marijuana THC Carboxy Drug Screen Comment Ethyl Alcohol mg/dL SARS-CoV-2, RNA, NAAT 05/19/22 05/20/22 17:18 08:32 WBC RBC Hgb Hct MCV MCH MCHC RDW Std Deviation RDW Coeff of Km Plt Count MPV Immature Gran % (Auto) Neut % (Auto) Lymph % (Auto) [place] % (Auto) Eos % (Auto) Baso % (Auto) Neut # (Auto) Lymph # (Auto) [place] # (Auto) Eos # (Auto) Baso # (Auto) Immature Gran # (Auto) Sodium Potassium Chloride Carbon Dioxide Anion Gap BUN Creatinine Est Cr Clr Drug Dosing Est GFR ( Amer) Est GFR (Non-Af Amer) BUN/Creatinine Ratio Glucose POC Glucose 101 H 84 Calcium Total Bilirubin AST ALT Alkaline Phosphatase Total Protein Albumin Globulin Albumin/Globulin Ratio TSH Urine Color Urine Appearance Urine pH Ur Specific Ronda Urine Protein Urine Glucose (UA) Urine Ketones Urine Blood Urine Nitrite Urine Bilirubin Urine Urobilinogen Ur Leukocyte Esterase Urine WBC (Auto) Urine RBC (Auto) U Hyaline Cast (Auto) U Epithel Cells (Auto) Urine Bacteria (Auto) Salicylates Urine Opiates Screen Ur Methadone, Qual Acetaminophen Urine Barbiturates Ur Phencyclidine (PCP) U Amphetamin/Meth Scrn MDMA (Ecstasy) Screen U Benzodiazepines Scrn Ur Cocaine Metabolite U Marijuana (THC) Screen U Marijuana THC Carboxy Drug Screen Comment Ethyl Alcohol mg/dL SARS-CoV-2, RNA, NAAT Hospital Course (1) Depression with suicidal ideation: (2) MDD (major depressive disorder), recurrent episode: (3) Post traumatic stress disorder (PTSD): Plan 05/19/22: Continue with current medications and tx plan. Family meeting held. 05/18/22: The patient was admitted to the [facility] ([facility] mental health unit) on q15 min checks (behavioral with suicide precautions) for safety. The patient will participate in group, recreational, and milieu therapies and will be offered additional individual and family sessions as clinically appropriate. -Blood glucose checks QID - vitamin -Sertraline 50mg qd Mental Health & Subst Abuse Tx Psychiatrist Name of Psychiatrist: [facility] - Dr. Armenta Psychiatrist's Date of Appointment with Psychiatrist: 05/21/22 Time of Appointment with Psychiatrist: 11:00 AM Psychiatric Appointment Comment: Video visit - please check email Therapist Name of Therapist: Vikki Chiu - Erasmo Therapist's Date of Therapist Appointment: 05/30/22 Time of Therapist Appointment: 12:30 PM Therapy Appointment Comment: [address], [place] [address] Per Diem Rn Name of Per Diem Rn: [employer] Phone Number for Per Diem Rn: [phone] Case Management Appointment Comment: They will call you to update you on assigned CM. Post Discharge Appointments Primary Care Physician Name Of Family Doctor: Joselito Carmona Primary Care Provider Appointment Comment: Follow up with PCP as needed. Other #1: Name of Aftercare Appointment: [facility] Rebekah Layne Phone Number of Aftercare Appointment: [phone] Date of Aftercare Appointment: 05/23/22 Time of Aftercare Appointment: 10:15 AM Aftercare Appointment Comment: Thania Antoine Release of Information Aftercare Appointment: Obtained, Reviewed and Signed Contact Information Discharge Discharge Address: [address] [place], [place] [id number], [facility] [id number] Discharge Plan Discharge Items Patient Disposition: Home - Self-Care Reason For Visit: MDD Discharge Diagnosis: Major Depressive Disorder/Dyana- depression Activity: Resume your previous activity Non-emergency contact: Primary Care Provider, Psychiatrist, Therapist and Playground Director Call non-emergency contact if: you have any medication questions and your s ymptoms worsen Follow-up/Referrals: Jane Horowitz V. [Primary Care Provider] - Diet: Carb Consistent or DM2 and Regular OB Addtl Attending Provider Instructions: Optional mobile apps we discussed: -Suicide safety plan -Virtual Hope Box SPECIAL CARE INSTRUCTIONS: 1. Follow through with your scheduled aftercare appointments. If unable to keep an appointment, please call to reschedule. 2. Take your medication only as prescribed. Medication should not be changed or stopped without the approval of your doctor. In the event of worsening symptoms or concerns about side effects, contact your doctor immediately. 3. Utilize new healthy coping skills, anger management skills, and stress management skills learned during your hospitalization. Journal feelings and process them with a support person. Identify stressors or situations that may result in relapse, deterioration or inappropriate behaviors and develop a plan to deal with those issues. 4. If your coping skills are ineffective and you are in crisis, contact your outpatient providers for direction. If unable to reach your providers, please call the [facility] CRISIS LINE AT , go to the [facility] walk-in center at [address], [address], [place], or go to the closest Emergency Room. 5. Avoid alcohol and un-prescribed drugs. 6. You have been provided with the Mental Health Advance Directives Pamphlet for your review. 7. Your condition is stable for discharge to outpatient level of care, but recovery is an ongoing process. Ifthoughts to harm yourself or others return, follow the safety plan developed during your stay. Planning for a safe return home includes securing weapons. Our treatment team recommends weaponsbe removed from the home until your outpatient provider reassesses your progress. In rare cases where the items themselvescannot be removed, guns and ammunitionshould be secured separatelyand keys stored by a reliable personoutside of the home. If you were admitted on an involuntary commitment, the police or other legal authorities may be involved in this process. AFTERCARE APPOINTMENTS: * Please call your insurance company prior to your scheduled appointment to confirm your aftercare providers are covered. Take your insurance information to your appointments. WHO TO CALL AND WHEN: Medical Emergencies: For questions or emergencies related to your hospital stay, please contact the Inpatient Behavioral Health Unit at [phone]. A organ pipe maker metal is on-call 24/02 for the Behavioral Health Unit for emergencies At any time you feel your situation is an emergency, you may also call 911 immediately. Pending Studies at Discharge: No Stand-Alone Forms: [facility] Medications and DC Order Prescriptions: New sertraline 50 mg Tablet 50 mg PO QAM 30 Days Qty: 30 0RF Vitamin 27 mg iron- 800 mcg Tablet 1 tab PO QAM Qty: 1 0RF Discharge Orders: Discharge Order (Routine); Ordered 05/20/22 Ordered By: Kira Haro Admission Data Admit Date/Time: 05/17/22 19:21 Attending Provider: Kira Haro Admit Provider: Kira Haro Primary Care Provider: Jane Horowitz V. Other Interventions: Discharge Summary Assessment (RN) Last Done: 05/20/22 10:07 PSY Interdisciplinary Discharge Planning Last Done: 05/20/22 10:10 Coding Level of Care Code 01829 D/C day mgmt > 30 min Diagnoses Depression with suicidal ideation F32.A; R45.851 MDD (major depressive disorder), recurrent episode F33.9 Post traumatic stress disorder (PTSD) F43.10 Time Spent (min) 40
[2022-05-20] MEDS: SERTRALINE HCL 50 MG TABLET PO SCH (09:59)
[2022-05-20] MEDS: PRENATAL VITAMIN 1 TAB PO SCH (09:59)
== END 2022-05-20 10:37 | disposition home or self-care (01) | DRG 832 ==
LOC: ED 16:10 → 3S 19:21

== ENCOUNTER 2022-06-04 07:30 | Inpatient (IN) ==
--- NOTE | 2022-05-29 14:05 | Communication Note ---
Date of Service: May 29, 2022 - Pt reports onset of nonproductive cough 05/26/22 with associated mild pharyngitis. Denies chest discomfort, shortness of breath, fever, chills or vomiting. Reports usual nausea for her with . She was advised to notify OB/PCP and we will need PCR COVID test for hospital policy. She plans to go through [facility] symptomatic pathway and was provided with phone number to call to schedule.
--- NOTE | 2022-05-30 10:24 | Anesthesiology Consultation ---
Date of Service May 30, 2022 Assessment & Plan (1) Encounter for pre-operative examination: Chart Review Chart Review: Acceptable Risk for Surgery and Patient NOT seen in Pre Admission Testing Consults Requested none History Surgery Operation Date: 06/05/22 07:30 Proposed Procedures p Section in LD - Td Nuno MD Height/Weight Height: 5 ft 3 in Weight: 93.44 kg Allergies Allergy/AdvReac Type Severity Reaction Status Date / Time bee venom protein (honey bee) Allergy Severe Anaphylaxis Verified 05/29/22 11:33 bacitracin Allergy Intermediate Rash Verified 05/29/22 11:33 Medications Home Medications Medication Instructions Recorded Confirmed Last Taken vits no.124-ferrous fum 1 tab PO QAM #1 tab 05/20/22 05/29/22 05/20/22 08:00 27 mg iron-folic acid 800 mcg tablet ( Vitamin) ondansetron HCl 4 mg tablet 4 mg PO DAILY PRN nausea and 05/22/22 05/29/22 Unknown vomiting 14 days #30 tabs ferrous sulfate 325 mg (65 mg 325 mg PO HS 05/29/22 05/29/22 Unknown iron) tablet,delayed release iron,carbonyl 65 mg-vitamin C 125 1 tab PO QAM 05/29/22 05/29/22 Unknown mg tablet,delayed release (Vitron-C) sertraline 50 mg tablet 50 mg PO HS MDD 05/29/22 05/29/22 Unknown Past Medical History Medical History Anxiety Depression with suicidal ideation hx + recent inpatient stay at [facility] in may 2022. Gestational diabetes currently: monitoring and diet controlled at this time. Heart murmur pt. states she had appt. with applications engineering manager in 2017, none since. does complain of the occasional chest pain, states her past applications engineering manager ([facility]) related the occasional chest pain to the the cardiac murmur. Heartburn diet controlled (during ) History of COVID-19 December/January 2022. mild cold symptoms. no current problems History of depression History of recent hospitalization inpatient psych stay at [facility] earlier in May 2022. Marijuana smoker last used April 2022 MDD (major depressive disorder), recurrent episode Post traumatic stress disorder Scoliosis mild - no treatments Past Family History Family History Mother FH: brain aneurysm Grandmother (Maternal) Lung cancer metastatic to brain Grandfather (Paternal) Lung cancer Past Surgical History Surgical History H/O wisdom tooth extraction History of section Status post surgery nexplanon removal with sedation Social History Smoking Status: Never smoker Do You Dip or Chew Tobacco: No Hx Alcohol Use: No Hx Substance Use: Yes substance use type: marijuana Substance Use Type Other:: listed on but patient denies Last Used Substance Other:: April 2022 Lab Results Anesthesia Preop Results Results Anesthesia Widget: WBC 5.86 K/ul (4.8-10.8) 05/22/22 Hgb 10.1 g/dl (12.0-16.0) L 05/22/22 Hct 29.6 % (34.1-44.9) L 05/22/22 Plt 245 K/uL (130-400) 05/22/22 Na 134 mmol/L (136-145) L 05/22/22 K 3.8 mmol/L (3.5-5.1) 05/22/22 Cl 101 mmol/L (98-107) 05/22/22 CO2 21 mmol/L (21-32) 05/22/22 BUN 4 mg/dl (6-23) L 05/22/22 Creat 0.77 mg/dl (0.6-1.2) 05/22/22 Glucose Level 67 mg/dl (70-99(Fasting)) L 05/22/22 POC Glucose 81 mg/dl (70-99) 05/27/22 TSH 0.564 uIu/ml (0.300-4.500) 05/17/22
[2022-06-06] MEDS ORDERED: LIDOCAINE 1% LOCAL 20 ML VIAL INFIL PRN (08:44)
[2022-06-06] MEDS ORDERED: OXYTOCIN 30 UNITS/500 ML BAG IV PRN ×2 (08:44→08:48)
[2022-06-06] MEDS: LACTATED RINGER'S 1,000 ML IV PRN ×3 (09:45→19:44)
[2022-06-06] MEDS ORDERED: SODIUM CHLORIDE 0.9% 250 ML IV PRN (10:04)
[2022-06-06 10:07] LABS: Hematocrit (blood only) 27.3 % (34.1-44.9); Hemoglobin 9.4 g/dl (12.0-16.0); Mean Corpuscular Hemoglobin 27.3 pg (25.0-34.0); Mean Corpuscular Hgb Conc 34.4 g/dL (32.0-36.0); Mean Corpuscular Volume 79.4 fL (80.0-100.0); Mean Platelet Volume 9.9 fL (9.4-12.3); Platelet Count 230 K/uL (130-400); RDW Coefficient of Variation 14.2 % (11.5-14.5); RDW Standard Deviation 40.5 fL (36.4-46.3); Red Blood Count 3.44 M/uL (3.93-5.22); White Blood Count 5.36 K/ul (4.8-10.8)
--- NOTE | 2022-06-06 10:09 | History & Physical Report ---
Date of Service June 06, 2022 Assessment & Plan (1) History of delivery: Plan: 26-year-old -0-0-1 at 40 wks with h/o prior Csection, desires TOLAC/ Understand the risks of uterine rupture, blood loss, hypoxia even , signed an informed consent, Vital signs stable afebrile, heart rate reassuring, Cervix is favorable, GBS negative, Strong mechanical dilatation and low-dose Pitocin per protocol, Continue to monitor closely, All questions were answered. (2) Encounter for pre-operative examination: (3) (vaginal after ): (4) Irregular uterine contractions: Admission and Anticipated Discharge Date Admission Date: June 06, 2022 History of Present Illness Primary Care Provider: Jane Horowitz Patient is a 26-year-old -0-0-1 at 40 weeks of gestation who was scheduled for induction of labor for Tolac/. Patient has been in to labor and delivery with contractions and her cervix was found to be favorable. She was planning to have Tolac/ and I offered her mechanical cervical dilatation with Strong balloon and low-dose Pitocin per protocol. She desires this to be done today. Her contractions spaced out and she has not had any leakage of fluid or vaginal bleeding. Baby has been active and moving. Her has been complicated by, 1. History of prior , 2. Depression complicating , she was hospitalized in mental health unit about 2 weeks ago for suicidal attempt and she has been on Zoloft 50 mg daily and doing well, 3. GDMA1 4. Sickle cell trait, FOB negative 5> h/o Marijuana use She understands the risks of TOLAC/ with uterine rupture, blood loss and hypoxemia even . I gave her the consent form from [place] [facility] [place] risks and benefits of versus repeat . She read all of them and signed an informed consent. All Questions were answered. Allergies Allergy/AdvReac Type Severity Reaction Status Date / Time bee venom protein (honey bee) Allergy Severe Anaphylaxis Verified 06/06/22 08:54 bacitracin Allergy Intermediate Rash Verified 06/06/22 08:54 Home Medications Medication Instructions Recorded Confirmed Type vits no.124-ferrous fum 1 tab PO QAM #1 tab 05/20/22 06/06/22 Rx 27 mg iron-folic acid 800 mcg tablet ( Vitamin) ondansetron HCl 4 mg tablet 4 mg PO DAILY PRN nausea and 05/22/22 06/06/22 Rx vomiting 14 days #30 tabs ferrous sulfate 325 mg (65 mg 325 mg PO HS 05/29/22 06/06/22 History iron) tablet,delayed release iron,carbonyl 65 mg-vitamin C 125 1 tab PO QAM 05/29/22 06/06/22 History mg tablet,delayed release (Vitron-C) sertraline 50 mg tablet 50 mg PO HS MDD 05/29/22 06/06/22 History Patient History Medical History Anxiety Depression with suicidal ideation hx + recent inpatient stay at [facility] in may 2022. Gestational diabetes currently: monitoring and diet controlled at this time. Heart murmur pt. states she had appt. with driver/merchandiser in 2017, none since. does complain of the occasional chest pain, states her past driver/merchandiser ([facility]) related the occasional chest pain to the the cardiac murmur. Heartburn diet controlled (during ) History of COVID-19 December/January 2022. mild cold symptoms. no current problems History of depression History of recent hospitalization inpatient psych stay at [facility] earlier in May 2022. Marijuana smoker last used April 2022 MDD (major depressive disorder), recurrent episode Post traumatic stress disorder Scoliosis mild - no treatments Surgical History H/O wisdom tooth extraction History of section Status post surgery nexplanon removal with sedation Family History Mother FH: brain aneurysm Grandmother (Maternal) Lung cancer metastatic to brain Grandfather (Paternal) Lung cancer Social History Smoking Status: Never smoker Second Hand Exposure: No; Do You Dip or Chew Tobacco: No; Tobacco Cessation Education Requested by Patient: No Hx Alcohol Use: No Hx Substance Use: Yes Prescribed Medications: Marijuana Last Used Substance Other:: April 2022 Substance Use Type Other:: listed on but patient denies Preferred Language: [place] Communication Ability: Effective Visual Impairment: No Limitations Hearing Ability: Normal Civilian Jail Officer Required: No Beliefs That Will Affect Care: None marital status: Single Current Living Situation: Family Current Living Situation Comment: daughter (2yo). current occupational status: employed and unemployed Other Information That Helps Us Care for You: No Feels Safe at Home: Yes Safety Concerns: Feels Safe At This Time Gender Identity: Female Assistive Devices: None OB History FT, Primary Csection on 03/2020 for arrest of dilation, OP CASH APPLICATIONS COORDINATOR History No h/o STD's, no h/o HSV, Chlamydia, GC Review of Systems as per Subjective / HPI Physical Exam Constitutional: well developed, well nourished and comfortable Gastrointestinal (Abdomen): normal bowel sounds, soft, nontender, no hepatosplenomegaly (GRAVID, Farhan 7 lb) Genitourinary: normal external appearance OB Exam Abdomen: + vertex Manual OB Exam: + cervical dilation 2 cm, + cervical effacement 30% and + station -2 OB Exam Monitor Tracing: + external FHT monitor used, + external uterine monitor used and + category I Strong balloon is placed into cervix and inflated with 40 ml of sterile water Results & Data ([facility]) Vital Signs (Past 12 Hours) Vital Signs Pulse BP 06/06/22 08:46 75 116/65
[2022-06-06] MEDS ORDERED: BUTORPHANOL TARTRATE 1 MG/ML VIAL IV PRN (10:21)
[2022-06-06] MEDS ORDERED: INSULIN HUMAN REGULAR SC SCH ×2 (11:30)
[2022-06-06] MEDS: INSULIN ASPART PER UNIT SC SCH ×3 (11:30→22:24)
[2022-06-06 11:42] LABS: Albumin Globulin Ratio 1.1 (0.9-2); Albumin Level 3.1 gm/dl (3.4-5.0); BUN Creatinine Ratio 8.3 (10-20); Bilirubin,Total 0.7 mg/dl (0.2-1.0); Calcium 8.5 mg/dl (8.5-10.1); Creatinine Clr Calc Pharmacy 155.7 ml/min; Est GFR (African American) 146.8 ml/min; Est GFR (Non-African American) 126.7 ml/min; Globulin 2.9 gm/dl (2.5-4.0); Potassium 3.4 mmol/L (3.5-5.1)
[2022-06-06 12:10] LABS: Amphetamines+Metham, Urine Neg (Neg); Barbiturates, Urine Neg (Neg); Benzodiazepine, Urine Neg (Neg); Cocaine, Urine Neg (Neg); MDMA (Ecstacy), Urine Neg (Neg); Methadone, Urine Neg (Neg); Opiate, Urine Neg (Neg); Phencyclidine, Urine Neg (Neg)
[2022-06-06 13:44] LABS: Estimated Average Glucose 111 mg/dl; Hemoglobin A1C 5.5 % (4.5-5.6)
--- NOTE | 2022-06-06 14:18 | Obstetrical Progress Note ---
Date of Service June 06, 2022 Assessment & Plan Admission and Anticipated Discharge Date Admission Date: June 06, 2022 Subjective Patient is reevaluated. She feels some ctxs but not all of them. VE; bulb was in vagina, removed, cervix 4 cm/ 40%/ -2, tight amniotic bag, AROM'ed, clear fluid FHR categ I D[place]: ctxs q 1-2 min Continue to monitor closely Epidural for pain. Results & Data ([facility]) Vital Signs (Past 12 Hours) Vital Signs Temp Pulse Resp BP 06/06/22 09:00 36.8 C 75 18 116/65 06/06/22 13:32 61 06/06/22 13:32 122/70 06/06/22 12:36 67 06/06/22 12:36 123/71 06/06/22 11:30 18 06/06/22 11:30 36.8 C 18 06/06/22 11:32 66 06/06/22 11:32 112/57 L 06/06/22 10:32 73 06/06/22 10:32 133/67 06/06/22 08:46 75 116/65
[2022-06-06] MEDS ORDERED: ePHEDrine sulfate 50 MG/ML AMP ONE (15:05)
[2022-06-06] MEDS ORDERED: fentaNYL citrate 100 MCG/2 ML VIAL ONE ×2 (15:05→20:25)
[2022-06-06] MEDS ORDERED: SODIUM CHLORIDE 0.9% INJ 10 ML VIAL ONE (15:05)
[2022-06-06] MEDS ORDERED: BUPIVACAINE 0.25% 30 ML VIAL ONE (15:05)
[2022-06-06] MEDS ORDERED: LIDOCAINE 2%/EPINEPHRINE 1:200,000 20 ML SDV ONE ×3 (15:05→20:48)
[2022-06-06] MEDS ORDERED: ONDANSETRON INJ 2 MG/ML 2 ML VIAL IV PRN ×2 (15:06→20:56)
[2022-06-06] MEDS ORDERED: fentaNYL 2MCG/ML ROPIVACAINE 1.25MG/ML 100 ML BAG EPI PRN (15:06)
[2022-06-06] MEDS ORDERED: diphenhydrAMINE 50 MG/ML VIAL IV PRN ×2 (15:06→20:56)
[2022-06-06] MEDS ORDERED: ePHEDrine sulfate 50 MG/ML AMP IV PRN ×2 (15:06→20:56)
[2022-06-06] MEDS ORDERED: NALBUPHINE HCL INJ 10 MG/ML AMP IV PRN ×2 (15:06→20:56)
[2022-06-06] MEDS ORDERED: NALOXONE HCL 1 MG in SODIUM CHLORIDE 0.9% 1000ML 1,000 ML IV PRN ×2 (15:06→20:56)
[2022-06-06] MEDS ORDERED: fentaNYL 2MCG/ML ROPIVACAINE 1.25MG/ML 100 ML BAG EPI ONE (15:06)
[2022-06-06] MEDS ORDERED: NALOXONE HCL 0.4 MG/1 ML VIAL/CARP IV PRN ×2 (15:06→20:56)
--- NOTE | 2022-06-06 15:14 | Anesthesiology Consultation ---
Date of Service June 06, 2022 Assessment & Plan Chart Review Chart Review: Patient NOT seen in Pre Admission Testing and Acceptable Risk for Labor Epidural Consults Requested none ASA ASA2 Proposed Anesthesia Anesthesia Type: Labor Epidural and CSE Risk / Benefits Reviewed With: PT / POA / Parent / Guardian, Accepts Plan and Informed Consent Obtained History Surgery Operation Date: 06/05/22 07:30 Proposed Procedures p Section in LD - Td Nuno MD Height/Weight Height: 5 ft 3 in Weight: 93.44 kg Allergies Allergy/AdvReac Type Severity Reaction Status Date / Time bee venom protein (honey bee) Allergy Severe Anaphylaxis Verified 06/06/22 08:54 bacitracin Allergy Intermediate Rash Verified 06/06/22 08:54 Medications Home Medications Medication Instructions Recorded Confirmed Last Taken vits no.124-ferrous fum 1 tab PO QAM #1 tab 05/20/22 06/06/22 06/06/22 08:00 27 mg iron-folic acid 800 mcg tablet ( Vitamin) ondansetron HCl 4 mg tablet 4 mg PO DAILY PRN nausea and 05/22/22 06/06/22 Un known vomiting 14 days #30 tabs ferrous sulfate 325 mg (65 mg 325 mg PO HS 05/29/22 06/06/22 Unknown iron) tablet,delayed release iron,carbonyl 65 mg-vitamin C 125 1 tab PO QAM 05/29/22 06/06/22 06/03/22 19:00 mg tablet,delayed release (Vitron-C) sertraline 50 mg tablet 50 mg PO HS MDD 05/29/22 06/06/22 06/06/22 00:00 Active Medications Generic Name Dose Route Start Last Admin Trade Name Leah PRN Reason Stop Dose Admin Lactated Ringer's 1,000 mls @ 150 mls/hr 06/06/22 08:44 06/06/22 14:35 Lr IV 06/08/22 08:43 150 mls/hr .[id number] PRN Administration L&D Protocol Protocol Oxytocin 30 units in 500 mls @ 13 mls/hr 06/06/22 08:48 06/06/22 14:25 Pitocin IV 06/08/22 08:47 0.78 units/hr .Q24H PRN 13 mls/hr Labor Induction/Augmentation Titration Protocol 0.78 UNITS/HR Insulin Aspart 0 units 06/06/22 11:30 06/06/22 11:30 Insulin Aspart Per Unit SC 07/06/22 11:29 Not Given ACHS JAMES Protocol NPO Date Last Intake of Fluids: 06/06/22 Time Last Intake of Fluids: 14:00 Date Last Intake of Solids: 06/05/22 Time Last Intake of Solids: 20:00 Past Medical History Medical History Anxiety Depression with suicidal ideation hx + recent inpatient stay at [facility] in may 2022. Gestational diabetes currently: monitoring and diet controlled at this time. Heart murmur pt. states she had appt. with senior research scientist in 2017, none since. does complain of the occasional chest pain, states her past senior research scientist ([facility]) related the occasional chest pain to the the cardiac murmur. Heartburn diet controlled (during ) History of COVID-19 December/January 2022. mild cold symptoms. no current problems History of depression History of recent hospitalization inpatient psych stay at [facility] earlier in May 2022. Marijuana smoker last used April 2022 MDD (major depressive disorder), recurrent episode Post traumatic stress disorder Scoliosis mild - no treatments Exercise / Class Metabolic Activity II 4-5 Yardwork/Stairs/Walk up hill Past Family History Family History Mother FH: brain aneurysm Grandmother (Maternal) Lung cancer metastatic to brain Grandfather (Paternal) Lung cancer Past Surgical History Surgical History H/O wisdom tooth extraction History of section Status post surgery nexplanon removal with sedation Past Anesthesia History No Hx of Anesthesia Complications and No Family Hx of Anesthesia Complications History of PONV No Hx of PONV and No Hx of Motion Sickness Social History Smoking Status: Never smoker Do You Dip or Chew Tobacco: No Hx Alcohol Use: No Hx Substance Use: Yes substance use type: marijuana Substance Use Type Other:: listed on but patient denies Last Used Substance Other:: April 2022 Review of Systems no chest pain or sob Physical Exam Vital Signs Last Vital Signs Temp 36.9 C 06/06/22 14:35 Pulse 84 06/06/22 15:10 Resp 16 06/06/22 14:35 BP 116/57 L 06/06/22 14:35 Pulse Ox 98 06/06/22 15:10 ENMT Mouth: no TMJ abnormality Thyromental Distance: > or= 3.5 Finger Breadths Mallampati Class: II Neck normal visual inspection Respiratory normal respiratory effort Auscultation: lungs clear to auscultation bilaterally Cardiovascular Rate/Rhythm: regular rate and regular rhythm Musculoskeletal Spine: normal cervical ROM Neurologic moves all extremities Psychiatric Orientation: alert and oriented x 3 Testing Laboratory Results 06/06/22 09:34 06/06/22 11:10 Hemoglobin A1c 5.5 % (4.5-5.6) 06/06/22 11:10 Blood Type O Positive 06/06/22 09:34 Antibody Screen NEGATIVE 06/06/22 09:34 06/06/22 06/06/22 12:37 10:12 POC Glucose 77 95
--- NOTE | 2022-06-06 17:20 | Obstetrical Progress Note ---
Date of Service June 06, 2022 Assessment & Plan Admission and Anticipated Discharge Date Admission Date: June 06, 2022 Subjective Patient is comfortable Received epidural VSS Afebrile FHR categ I VE; 5/ 50%-2 Continue to monitor Adjust Pitocin dose as needed Results & Data ([facility]) Vital Signs (Past 12 Hours) Vital Signs Temp Pulse Resp BP Pulse Ox 06/06/22 09:00 36.8 C 75 18 116/65 06/06/22 17:17 61 06/06/22 17:17 129/66 06/06/22 17:15 98 06/06/22 17:15 70 06/06/22 17:10 99 06/06/22 17:10 77 06/06/22 17:07 91 06/06/22 17:07 80 06/06/22 17:05 99 06/06/22 17:05 78 06/06/22 17:04 61 06/06/22 17:04 101/53 L 06/06/22 17:00 97 06/06/22 17:00 65 06/06/22 16:55 97 06/06/22 16:55 60 06/06/22 16:50 98 06/06/22 16:50 66 06/06/22 16:49 60 06/06/22 16:49 96/52 L 06/06/22 16:45 97 06/06/22 16:45 59 L 06/06/22 16:40 97 06/06/22 16:40 58 L 06/06/22 16:35 97 06/06/22 16:35 56 L 06/06/22 15:25 16 06/06/22 15:25 37.0 C 16 06/06/22 16:25 18 06/06/22 16:25 37.0 C 18 06/06/22 16:33 54 L 06/06/22 16:33 98/50 L 06/06/22 16:30 96 06/06/22 16:30 58 L 06/06/22 16:25 97 06/06/22 16:25 56 L 06/06/22 16:20 97 06/06/22 16:20 56 L 06/06/22 16:17 58 L 06/06/22 16:17 92/54 L 06/06/22 16:15 96 06/06/22 16:15 58 L 06/06/22 16:10 97 06/06/22 16:10 59 L 06/06/22 16:05 97 06/06/22 16:05 62 06/06/22 16:02 57 L 06/06/22 16:02 97/54 L 06/06/22 16:00 97 06/06/22 16:00 59 L 06/06/22 15:55 96 06/06/22 15:55 73 06/06/22 15:50 97 06/06/22 15:50 55 L 06/06/22 15:49 63 06/06/22 15:49 105/52 L 06/06/22 15:45 97 06/06/22 15:45 59 L 06/06/22 15:40 97 06/06/22 15:40 57 L 06/06/22 15:35 97 06/06/22 15:35 59 L 06/06/22 15:30 98 06/06/22 15:30 64 06/06/22 15:29 54 L 06/06/22 15:29 98/54 L 06/06/22 15:25 99 06/06/22 15:25 68 06/06/22 15:22 64 06/06/22 15:22 134/76 06/06/22 15:20 99 06/06/22 15:20 78 06/06/22 15:15 100 06/06/22 15:15 74 06/06/22 15:10 98 06/06/22 15:10 84 06/06/22 14:35 16 06/06/22 14:35 36.9 C 16 06/06/22 14:35 61 06/06/22 14:35 116/57 L 06/06/22 13:32 61 06/06/22 13:32 122/70 06/06/22 12:36 67 06/06/22 12:36 123/71 06/06/22 11:30 18 06/06/22 11:30 36.8 C 18 06/06/22 11:32 66 06/06/22 11:32 112/57 L 06/06/22 10:32 73 06/06/22 10:32 133/67 06/06/22 08:46 75 116/65
--- NOTE | 2022-06-06 19:00 | Obstetrical Progress Note ---
Date of Service June 06, 2022 Assessment & Plan Admission and Anticipated Discharge Date Admission Date: June 06, 2022 Subjective Patient is reevaluated She feels pressure VE; 5/ 70%/ -2, LOP, anterior fontanelle at 1-2 o'clock position, confirmed with bed side US FHR categ I, eary decels with contractions, moderate variability and accels present Ctxs q 2-3 min, Pitocin is at 19 miu/min Continnue to monitor closely, Left lateral position with peanut ball Results & Data ([facility]) Vital Signs (Past 12 Hours) Vital Signs Temp Pulse Resp BP Pulse Ox 06/06/22 09:00 36.8 C 75 18 116/65 06/06/22 18:55 99 06/06/22 18:55 67 06/06/22 18:50 100 06/06/22 18:50 66 06/06/22 18:48 70 06/06/22 18:48 132/73 06/06/22 18:45 99 06/06/22 18:45 71 06/06/22 18:40 99 06/06/22 18:40 67 06/06/22 18:35 96 06/06/22 18:35 58 L 06/06/22 18:32 55 L 06/06/22 18:32 119/63 06/06/22 18:30 96 06/06/22 18:30 59 L 06/06/22 18:25 97 06/06/22 18:25 57 L 06/06/22 18:20 97 06/06/22 18:20 60 06/06/22 18:18 60 06/06/22 18:18 130/66 06/06/22 18:15 97 06/06/22 18:15 60 06/06/22 18:10 97 06/06/22 18:10 58 L 06/06/22 18:05 97 06/06/22 18:05 60 06/06/22 18:02 66 06/06/22 18:02 132/62 06/06/22 18:00 98 06/06/22 18:00 68 06/06/22 17:55 98 06/06/22 17:55 74 06/06/22 17:50 98 06/06/22 17:50 62 06/06/22 17:47 65 06/06/22 17:47 132/63 06/06/22 17:45 97 06/06/22 17:45 64 06/06/22 17:31 18 06/06/22 17:31 37.0 C 18 06/06/22 17:40 98 06/06/22 17:40 62 06/06/22 17:35 98 06/06/22 17:35 62 06/06/22 17:32 60 06/06/22 17:32 119/62 06/06/22 17:30 98 06/06/22 17:30 70 06/06/22 17:25 99 06/06/22 17:25 62 06/06/22 17:20 99 06/06/22 17:20 64 06/06/22 17:17 61 06/06/22 17:17 129/66 06/06/22 17:15 98 06/06/22 17:15 70 06/06/22 17:10 99 06/06/22 17:10 77 06/06/22 17:07 91 06/06/22 17:07 80 06/06/22 17:05 99 06/06/22 17:05 78 06/06/22 17:04 61 06/06/22 17:04 101/53 L 06/06/22 17:00 97 06/06/22 17:00 65 06/06/22 16:55 97 06/06/22 16:55 60 06/06/22 16:50 98 06/06/22 16:50 66 06/06/22 16:49 60 06/06/22 16:49 96/52 L 06/06/22 16:45 97 06/06/22 16:45 59 L 06/06/22 16:40 97 06/06/22 16:40 58 L 06/06/22 16:35 97 06/06/22 16:35 56 L 06/06/22 15:25 16 06/06/22 15:25 37.0 C 16 06/06/22 16:25 18 06/06/22 16:25 37.0 C 18 06/06/22 16:33 54 L 06/06/22 16:33 98/50 L 06/06/22 16:30 96 06/06/22 16:30 58 L 06/06/22 16:25 97 06/06/22 16:25 56 L 06/06/22 16:20 97 06/06/22 16:20 56 L 06/06/22 16:17 58 L 06/06/22 16:17 92/54 L 06/06/22 16:15 96 06/06/22 16:15 58 L 06/06/22 16:10 97 06/06/22 16:10 59 L 06/06/22 16:05 97 06/06/22 16:05 62 06/06/22 16:02 57 L 06/06/22 16:02 97/54 L 06/06/22 16:00 97 06/06/22 16:00 59 L 06/06/22 15:55 96 06/06/22 15:55 73 06/06/22 15:50 97 06/06/22 15:50 55 L 06/06/22 15:49 63 06/06/22 15:49 105/52 L 06/06/22 15:45 97 06/06/22 15:45 59 L 06/06/22 15:40 97 06/06/22 15:40 57 L 06/06/22 15:35 97 06/06/22 15:35 59 L 06/06/22 15:30 98 06/06/22 15:30 64 06/06/22 15:29 54 L 06/06/22 15:29 98/54 L 06/06/22 15:25 99 06/06/22 15:25 68 06/06/22 15:22 64 06/06/22 15:22 134/76 06/06/22 15:20 99 06/06/22 15:20 78 06/06/22 15:15 100 06/06/22 15:15 74 06/06/22 15:10 98 06/06/22 15:10 84 06/06/22 14:35 16 06/06/22 14:35 36.9 C 16 06/06/22 14:35 61 06/06/22 14:35 116/57 L 06/06/22 13:32 61 06/06/22 13:32 122/70 06/06/22 12:36 67 06/06/22 12:36 123/71 06/06/22 11:30 18 06/06/22 11:30 36.8 C 18 06/06/22 11:32 66 06/06/22 11:32 112/57 L 06/06/22 10:32 73 06/06/22 10:32 133/67 06/06/22 08:46 75 116/65
[2022-06-06] MEDS ORDERED: CITRIC ACID/SODIUM CITRATE 15 ML UDC ONE (20:22)
[2022-06-06] MEDS ORDERED: AZITHROMYCIN 500 MG in DEXTROSE 5% 250 ML IV STA (20:22)
--- NOTE | 2022-06-06 20:25 | Obstetrical Progress Note ---
Date of Service June 06, 2022 Assessment & Plan Admission and Anticipated Discharge Date Admission Date: June 06, 2022 Subjective FHR has been having recurrent prolonged decels to 70-80's VE: unchanged 5/ 70% -2, OP, confirmed with US, despite position changes TOLAC with arrest of dilation, persistent OP, recurrent FHR decels Recommended Repeat Csection She agreed and signed and informed consent. Results & Data ([facility]) Vital Signs (Past 12 Hours) Vital Signs Temp Pulse Resp BP Pulse Ox 06/06/22 09:00 36.8 C 75 18 116/65 06/06/22 20:20 100 06/06/22 20:20 67 06/06/22 20:19 57 L 06/06/22 20:19 141/64 H 06/06/22 20:15 100 06/06/22 20:15 63 06/06/22 20:10 100 06/06/22 20:10 69 06/06/22 20:00 18 06/06/22 20:00 18 06/06/22 20:05 99 06/06/22 20:05 66 06/06/22 20:03 60 06/06/22 20:03 131/72 06/06/22 20:00 18 06/06/22 20:00 18 06/06/22 20:00 99 06/06/22 20:00 62 06/06/22 19:55 99 06/06/22 19:55 67 06/06/22 19:30 18 06/06/22 19:30 18 06/06/22 19:50 100 06/06/22 19:50 69 06/06/22 19:49 62 06/06/22 19:49 141/69 H 06/06/22 19:45 100 06/06/22 19:45 59 L 06/06/22 19:40 100 06/06/22 19:40 69 06/06/22 19:35 100 06/06/22 19:35 70 06/06/22 19:34 92 06/06/22 19:34 69 06/06/22 19:33 66 06/06/22 19:33 113/61 06/06/22 19:30 100 06/06/22 19:30 60 06/06/22 19:25 100 06/06/22 19:25 77 06/06/22 19:20 99 06/06/22 19:20 61 06/06/22 19:10 18 06/06/22 19:10 36.7 C 18 06/06/22 19:17 69 06/06/22 19:17 135/85 06/06/22 19:15 99 06/06/22 19:15 67 06/06/22 19:10 98 06/06/22 19:10 61 06/06/22 19:05 99 06/06/22 19:05 63 06/06/22 19:03 64 06/06/22 19:03 128/81 06/06/22 19:00 100 06/06/22 19:00 66 06/06/22 18:55 99 06/06/22 18:55 67 06/06/22 18:50 100 06/06/22 18:50 66 06/06/22 18:48 70 06/06/22 18:48 132/73 06/06/22 18:45 99 06/06/22 18:45 71 06/06/22 18:40 99 06/06/22 18:40 67 06/06/22 18:35 96 06/06/22 18:35 58 L 06/06/22 18:32 55 L 06/06/22 18:32 119/63 06/06/22 18:30 96 06/06/22 18:30 59 L 06/06/22 18:25 97 06/06/22 18:25 57 L 06/06/22 18:20 97 06/06/22 18:20 60 06/06/22 18:18 60 06/06/22 18:18 130/66 06/06/22 18:15 97 06/06/22 18:15 60 06/06/22 18:10 97 06/06/22 18:10 58 L 06/06/22 18:05 97 06/06/22 18:05 60 06/06/22 18:02 66 06/06/22 18:02 132/62 06/06/22 18:00 98 06/06/22 18:00 68 06/06/22 17:55 98 06/06/22 17:55 74 06/06/22 17:50 98 06/06/22 17:50 62 06/06/22 17:47 65 06/06/22 17:47 132/63 06/06/22 17:45 97 06/06/22 17:45 64 06/06/22 17:31 18 06/06/22 17:31 37.0 C 18 06/06/22 17:40 98 06/06/22 17:40 62 06/06/22 17:35 98 06/06/22 17:35 62 06/06/22 17:32 60 06/06/22 17:32 119/62 06/06/22 17:30 98 06/06/22 17:30 70 06/06/22 17:25 99 06/06/22 17:25 62 06/06/22 17:20 99 06/06/22 17:20 64 06/06/22 17:17 61 06/06/22 17:17 129/66 06/06/22 17:15 98 06/06/22 17:15 70 06/06/22 17:10 99 06/06/22 17:10 77 06/06/22 17:07 91 06/06/22 17:07 80 06/06/22 17:05 99 06/06/22 17:05 78 06/06/22 17:04 61 06/06/22 17:04 101/53 L 06/06/22 17:00 97 06/06/22 17:00 65 06/06/22 16:55 97 06/06/22 16:55 60 06/06/22 16:50 98 06/06/22 16:50 66 06/06/22 16:49 60 06/06/22 16:49 96/52 L 06/06/22 16:45 97 06/06/22 16:45 59 L 06/06/22 16:40 97 06/06/22 16:40 58 L 06/06/22 16:35 97 06/06/22 16:35 56 L 06/06/22 15:25 16 06/06/22 15:25 37.0 C 16 06/06/22 16:25 18 06/06/22 16:25 37.0 C 18 06/06/22 16:33 54 L 06/06/22 16:33 98/50 L 06/06/22 16:30 96 06/06/22 16:30 58 L 06/06/22 16:25 97 06/06/22 16:25 56 L 06/06/22 16:20 97 06/06/22 16:20 56 L 06/06/22 16:17 58 L 06/06/22 16:17 92/54 L 06/06/22 16:15 96 06/06/22 16:15 58 L 06/06/22 16:10 97 06/06/22 16:10 59 L 06/06/22 16:05 97 06/06/22 16:05 62 06/06/22 16:02 57 L 06/06/22 16:02 97/54 L 06/06/22 16:00 97 06/06/22 16:00 59 L 06/06/22 15:55 96 06/06/22 15:55 73 06/06/22 15:50 97 06/06/22 15:50 55 L 06/06/22 15:49 63 06/06/22 15:49 105/52 L 06/06/22 15:45 97 06/06/22 15:45 59 L 06/06/22 15:40 97 06/06/22 15:40 57 L 06/06/22 15:35 97 06/06/22 15:35 59 L 06/06/22 15:30 98 06/06/22 15:30 64 06/06/22 15:29 54 L 06/06/22 15:29 98/54 L 06/06/22 15:25 99 06/06/22 15:25 68 06/06/22 15:22 64 06/06/22 15:22 134/76 06/06/22 15:20 99 06/06/22 15:20 78 06/06/22 15:15 100 06/06/22 15:15 74 06/06/22 15:10 98 06/06/22 15:10 84 06/06/22 14:35 16 06/06/22 14:35 36.9 C 16 06/06/22 14:35 61 06/06/22 14:35 116/57 L 06/06/22 13:32 61 06/06/22 13:32 122/70 06/06/22 12:36 67 06/06/22 12:36 123/71 06/06/22 11:30 18 06/06/22 11:30 36.8 C 18 06/06/22 11:32 66 06/06/22 11:32 112/57 L 06/06/22 10:32 73 06/06/22 10:32 133/67 06/06/22 08:46 75 116/65
[2022-06-06] MEDS ORDERED: MoRPHine SULFATE PF 1 MG/ML 10 ML AMP/VIAL ONE (20:26)
[2022-06-06] MEDS ORDERED: LACTATED RINGER'S 1,000 ML IV SCH ×2 (20:30→21:30)
[2022-06-06] MEDS ORDERED: ceFAZolin 2000MG 2,000 MG/15 ML SYR IV ONE (20:30)
[2022-06-06] MEDS ORDERED: ONDANSETRON INJ 2 MG/ML 2 ML VIAL ONE (20:48)
[2022-06-06] MEDS ORDERED: PHENYLEPHRINE 100MCG/ML 5ML SYR ONE (20:48)
[2022-06-06] MEDS ORDERED: OXYTOCIN 10 UNITS/ML 10ML VIAL ONE (20:48)
[2022-06-06] MEDS ORDERED: LACTATED RINGER'S 500 ML IV PRN (20:56)
[2022-06-06] MEDS ORDERED: HYDROmorphone INJ 0.5 MG/0.5 ML SYR IV PRN (20:56)
[2022-06-06] MEDS ORDERED: KETOROLAC 30 MG/ML VIAL IV PRN (20:56)
[2022-06-06] MEDS ORDERED: NALOXONE HCL 0.08 MG in SYRINGE 1.8 ML IV PRN (20:56)
[2022-06-06] MEDS ORDERED: MoRPHine SULFATE PF 1 MG/ML 10 ML AMP/VIAL EPI ONE (20:56)
[2022-06-06] MEDS ORDERED: NO NARCOTICS OR SEDATIVES SCH (21:00)
[2022-06-06] MEDS ORDERED: DC INTRASPINAL MORPHINE SCH (21:00)
[2022-06-06] MEDS ORDERED: SODIUM CHLORIDE 0.9% 1000ML 1,000 ML IV SCH (21:00)
[2022-06-06] MEDS ORDERED: MAGNESIUM HYDROXIDE SUSP 30 ML UDC PO PRN (21:28)
[2022-06-06] MEDS ORDERED: DIPHTHERIA/TETANUS/PERTUSSIS 0.5 ML SYR/VIAL IM ONE (21:28)
[2022-06-06] MEDS ORDERED: MEASLES, MUMPS & RUBELLA VIRUS VIAL SQ ONE (21:28)
[2022-06-06] MEDS ORDERED: HYDROCORTISONE ACETATE 25 MG SUPP PR PRN (21:28)
[2022-06-06] MEDS ORDERED: BENZOCAINE 20% AER SPR 82.5 GM CAN EXT PRN (21:28)
[2022-06-06] MEDS ORDERED: SENNA 8.6 MG TAB PO PRN (21:28)
--- NOTE | 2022-06-06 21:38 | Post Operative Brief Note ---
Immediate Post Op Note v1 Date of Surgery June 06, 2022 Pre & Post Diagnosis Operation Date: 06/05/22 07:30 <No data on this case meets the specified criteria> Operation Date: 06/06/22 20:25 Pre-Op Diagnosis: Arrest of dilatation in active phase of labor Recurrent decelerations Failed TOLAC Post-Op Diagnosis: Arrest of dilatation in active phase of labor Recurrent decelerations Failed TOLAC OP presentation I identified the patient and participated in the time-out.: Yes Procedure Operation Date: 06/05/22 07:30 <No data on this case meets the specified criteria> Operation Date: 06/06/22 20:25 Actual Procedures p Repeat Lower uterine transverse c/s. Live male at 2050. - Yanet De Paz MD Surgeon Yanet Zuniga MD Air Conditioning Unit Assembler Jennifer Valdez RN Estimated Blood Loss 600 Findings Consistent with Post-Op Diagnosis Drains Strong Catheter (placed in preop, draining clear yellow urine. ) Anesthesia Type Labor Epidural Complications none
[2022-06-06] MEDS ORDERED: TERBUTALINE SULFATE 1 MG/ML VIAL SQ ONE (22:19)
[2022-06-06] MEDS: OXYTOCIN 20 UNITS in LACTATED RINGER'S 1,000 ML IV SCH (23:53)
--- NOTE | 2022-06-07 00:11 | Anesthesiology Progress Note ---
Date of Service June 07, 2022 Anesthesia Post Procedure Vital Signs Vital Signs: Temp Pulse Resp BP Pulse Ox 06/06/22 23:35 36.7 C 18 06/06/22 23:05 18 06/06/22 22:36 18 06/06/22 22:35 18 06/06/22 22:25 18 06/06/22 22:15 18 06/06/22 22:05 18 06/06/22 21:55 18 06/06/22 21:45 18 06/06/22 21:35 36.4 C L 18 06/06/22 09:00 36.8 C 75 18 116/65 06/06/22 23:50 98 06/06/22 23:50 67 06/06/22 23:48 90 06/06/22 23:48 69 06/06/22 23:46 78 06/06/22 23:46 127/60 06/06/22 23:45 99 06/06/22 23:45 78 06/06/22 23:40 98 06/06/22 23:40 68 06/06/22 23:35 97 06/06/22 23:35 66 06/06/22 23:36 76 06/06/22 23:36 137/56 L 06/06/22 23:34 93 06/06/22 23:34 70 06/06/22 23:30 98 06/06/22 23:30 66 06/06/22 23:25 98 06/06/22 23:25 70 06/06/22 23:26 66 06/06/22 23:26 115/57 L 06/06/22 23:20 99 06/06/22 23:20 72 06/06/22 23:15 99 06/06/22 23:15 70 06/06/22 23:16 69 06/06/22 23:16 109/58 L 06/06/22 23:10 99 06/06/22 23:10 71 06/06/22 23:05 98 06/06/22 23:05 77 06/06/22 23:06 74 06/06/22 23:06 111/55 L 06/06/22 23:00 99 06/06/22 23:00 74 06/06/22 22:55 100 06/06/22 22:55 66 06/06/22 22:56 61 06/06/22 22:56 111/53 L 06/06/22 22:50 100 06/06/22 22:50 66 06/06/22 22:47 74 06/06/22 22:47 109/49 L 06/06/22 22:45 99 06/06/22 22:45 72 06/06/22 22:40 99 06/06/22 22:40 74 06/06/22 22:35 98 06/06/22 22:35 73 06/06/22 22:34 92 06/06/22 22:34 76 06/06/22 22:30 100 06/06/22 22:30 71 06/06/22 22:26 92 06/06/22 22:26 72 06/06/22 22:25 99 06/06/22 22:25 72 06/06/22 22:20 100 06/06/22 22:20 72 06/06/22 22:17 85 06/06/22 22:17 117/59 L 06/06/22 22:15 100 06/06/22 22:15 77 06/06/22 22:11 90 06/06/22 22:11 84 06/06/22 22:10 100 06/06/22 22:10 84 06/06/22 22:05 100 06/06/22 22:05 66 06/06/22 22:06 81 06/06/22 22:06 100/55 L 06/06/22 22:03 85 L 06/06/22 22:03 75 06/06/22 22:00 99 06/06/22 22:00 67 06/06/22 21:55 99 06/06/22 21:55 70 06/06/22 21:56 67 06/06/22 21:56 100/50 L 06/06/22 21:54 92 06/06/22 21:54 85 06/06/22 21:50 100 06/06/22 21:50 76 06/06/22 21:45 100 06/06/22 21:45 77 06/06/22 21:46 78 06/06/22 21:46 100/49 L 06/06/22 21:40 99 06/06/22 21:40 80 06/06/22 21:37 72 06/06/22 21:37 95/47 L 06/06/22 21:35 99 06/06/22 21:35 77 06/06/22 20:30 100 06/06/22 20:30 86 06/06/22 20:25 100 06/06/22 20:25 95 H 06/06/22 20:20 100 06/06/22 20:20 67 06/06/22 20:19 57 L 06/06/22 20:19 141/64 H 06/06/22 20:15 100 06/06/22 20:15 63 06/06/22 20:10 100 06/06/22 20:10 69 06/06/22 20:00 18 06/06/22 20:00 18 06/06/22 20:05 99 06/06/22 20:05 66 06/06/22 20:03 60 06/06/22 20:03 131/72 06/06/22 20:00 18 06/06/22 20:00 18 06/06/22 20:00 99 06/06/22 20:00 62 06/06/22 19:55 99 06/06/22 19:55 67 06/06/22 19:30 18 06/06/22 19:30 18 06/06/22 19:50 100 06/06/22 19:50 69 06/06/22 19:49 62 06/06/22 19:49 141/69 H 06/06/22 19:45 100 06/06/22 19:45 59 L 06/06/22 19:40 100 06/06/22 19:40 69 06/06/22 19:35 100 06/06/22 19:35 70 06/06/22 19:34 92 06/06/22 19:34 69 06/06/22 19:33 66 06/06/22 19:33 113/61 06/06/22 19:30 100 06/06/22 19:30 60 06/06/22 19:25 100 06/06/22 19:25 77 06/06/22 19:20 99 06/06/22 19:20 61 06/06/22 19:10 18 06/06/22 19:10 36.7 C 18 06/06/22 19:17 69 06/06/22 19:17 135/85 06/06/22 19:15 99 06/06/22 19:15 67 06/06/22 19:10 98 06/06/22 19:10 61 06/06/22 19:05 99 06/06/22 19:05 63 06/06/22 19:03 64 06/06/22 19:03 128/81 06/06/22 19:00 100 06/06/22 19:00 66 06/06/22 18:55 99 06/06/22 18:55 67 06/06/22 18:50 100 06/06/22 18:50 66 06/06/22 18:48 70 06/06/22 18:48 132/73 06/06/22 18:45 99 06/06/22 18:45 71 06/06/22 18:40 99 06/06/22 18:40 67 06/06/22 18:35 96 06/06/22 18:35 58 L 06/06/22 18:32 55 L 06/06/22 18:32 119/63 06/06/22 18:30 96 06/06/22 18:30 59 L 06/06/22 18:25 97 06/06/22 18:25 57 L 06/06/22 18:20 97 06/06/22 18:20 60 06/06/22 18:18 60 06/06/22 18:18 130/66 06/06/22 18:15 97 06/06/22 18:15 60 06/06/22 18:10 97 06/06/22 18:10 58 L 06/06/22 18:05 97 06/06/22 18:05 60 06/06/22 18:02 66 06/06/22 18:02 132/62 06/06/22 18:00 98 06/06/22 18:00 68 06/06/22 17:55 98 06/06/22 17:55 74 06/06/22 17:50 98 06/06/22 17:50 62 06/06/22 17:47 65 06/06/22 17:47 132/63 06/06/22 17:45 97 06/06/22 17:45 64 06/06/22 17:31 18 06/06/22 17:31 37.0 C 18 06/06/22 17:40 98 06/06/22 17:40 62 06/06/22 17:35 98 06/06/22 17:35 62 06/06/22 17:32 60 06/06/22 17:32 119/62 06/06/22 17:30 98 06/06/22 17:30 70 06/06/22 17:25 99 06/06/22 17:25 62 06/06/22 17:20 99 06/06/22 17:20 64 06/06/22 17:17 61 06/06/22 17:17 129/66 06/06/22 17:15 98 06/06/22 17:15 70 06/06/22 17:10 99 06/06/22 17:10 77 06/06/22 17:07 91 06/06/22 17:07 80 06/06/22 17:05 99 06/06/22 17:05 78 06/06/22 17:04 61 06/06/22 17:04 101/53 L 06/06/22 17:00 97 06/06/22 17:00 65 06/06/22 16:55 97 06/06/22 16:55 60 06/06/22 16:50 98 06/06/22 16:50 66 06/06/22 16:49 60 06/06/22 16:49 96/52 L 06/06/22 16:45 97 06/06/22 16:45 59 L 06/06/22 16:40 97 06/06/22 16:40 58 L 06/06/22 16:35 97 06/06/22 16:35 56 L 06/06/22 15:25 16 06/06/22 15:25 37.0 C 16 06/06/22 16:25 18 06/06/22 16:25 37.0 C 18 06/06/22 16:33 54 L 06/06/22 16:33 98/50 L 06/06/22 16:30 96 06/06/22 16:30 58 L 06/06/22 16:25 97 06/06/22 16:25 56 L 06/06/22 16:20 97 06/06/22 16:20 56 L 06/06/22 16:17 58 L 06/06/22 16:17 92/54 L 06/06/22 16:15 96 06/06/22 16:15 58 L 06/06/22 16:10 97 06/06/22 16:10 59 L 06/06/22 16:05 97 06/06/22 16:05 62 06/06/22 16:02 57 L 06/06/22 16:02 97/54 L 06/06/22 16:00 97 06/06/22 16:00 59 L 06/06/22 15:55 96 06/06/22 15:55 73 06/06/22 15:50 97 06/06/22 15:50 55 L 06/06/22 15:49 63 06/06/22 15:49 105/52 L 06/06/22 15:45 97 06/06/22 15:45 59 L 06/06/22 15:40 97 06/06/22 15:40 57 L 06/06/22 15:35 97 06/06/22 15:35 59 L 06/06/22 15:30 98 06/06/22 15:30 64 06/06/22 15:29 54 L 06/06/22 15:29 98/54 L 06/06/22 15:25 99 06/06/22 15:25 68 06/06/22 15:22 64 06/06/22 15:22 134/76 06/06/22 15:20 99 06/06/22 15:20 78 06/06/22 15:15 100 06/06/22 15:15 74 06/06/22 15:10 98 06/06/22 15:10 84 06/06/22 14:35 16 06/06/22 14:35 36.9 C 16 06/06/22 14:35 61 06/06/22 14:35 116/57 L 06/06/22 13:32 61 06/06/22 13:32 122/70 06/06/22 12:36 67 06/06/22 12:36 123/71 06/06/22 11:30 18 06/06/22 11:30 36.8 C 18 06/06/22 11:32 66 06/06/22 11:32 112/57 L 06/06/22 10:32 73 06/06/22 10:32 133/67 06/06/22 08:46 75 116/65 Pain Intensity Bilateral Abdomen: Pain Intensity: 4 Transfer of Care Handoff Completed per policy Notes Mental Status: alert / awake / arousable Patient Amnestic to Procedure: Yes Nausea / Vomiting: adequately controlled Pain: adequately controlled Airway Patency, RR, SpO2: stable & adequate BP & HR: stable & adequate Hydration State: stable & adequate Neuraxial Anesthesia: was administered and sensory block is resolving Anesthetic Complications: no major complications apparent and Pt Satisfied with anesthetic care
--- NOTE | 2022-06-07 02:34 | Operative Report (OR) ---
DATE OF SURGERY: 06/06/2022. PREOPERATIVE DIAGNOSES: The patient is a 26-year-old G2, para 1-0-0-1, at 40 weeks of gestation, presented today for induction of labor for TOLAC/ (trial of labor after /vaginal after ).She received Strong balloon mechanical dilatation with IV Pitocin and artificial rupture of membranes. Arrest of dilatation in active phase of labor despite adequate contractions, Persistent OP ( Occiput Posterior) Recurrent heart rate decelerations. Failed trial of labor after . POSTOPERATIVE DIAGNOSES: The patient is a 26-year-old G2, para 1-0-0-1, at 40 weeks of gestation, presented today for induction of labor for TOLAC/ (trial of labor after /vaginal after ).She received Strong balloon mechanical dilatation with IV Pitocin and artificial rupture of membranes. Arrest of dilatation in active phase of labor despite adequate contractions, Persistent OP ( Occiput Posterior) Recurrent heart rate decelerations. Failed trial of labor after . Nuchal cord. PROCEDURE: Repeat low transverse with Pfannenstiel skin incision. SURGEON: Yanet Zuniga MD. HOSPITALITY MANAGER: Jennifer Valdez RN. ESTIMATED BLOOD LOSS: 600 mL. DRAINS: Strong catheter drained 150 mL of clear urine. ANESTHESIA: Labor epidural. ANESTHESIOLOGIST: Dr. Low. COMPLICATIONS: None. FINDINGS: Baby was a viable male infant delivered in cephalic presentation with a nuchal cord around the neck x1, Apgars were 8/8, weight is 3625 gr. Maternal findings: Normal uterus, fallopian tubes, and ovaries. DESCRIPTION OF PROCEDURE: The patient was taken to the operating room where epidural anesthesia was found to be adequate. She was placed in dorsal supine position with a leftward tilt. She was prepped and draped in the usual sterile fashion. A Pfannenstiel skin incision was made upon old scar, carried through to the underlying layer of fascia with the Bovie. Fascia was incised in the midline and the incision was extended laterally with help of Bailey scissors. Lower aspect of the fascial incision was then grasped with Tameka clamps, elevated, and underlying rectus muscles were dissected off sharply with Bailey scissors. Upper aspect of the fascial incision was also grasped with Tameka clamps, elevated, and underlying rectus muscles were dissected off sharply with Bailey scissors. Rectus muscles were in the midline and the peritoneum was entered bluntly with fingers. Peritoneal incision was extended superiorly and inferiorly with good visualization of the bladder. Bladder blade was inserted. Vesicouterine peritoneum was identified, grasped with pickups, entered sharply with Metzenbaum scissors and bladder flap was created digitally and bladder blade was reinserted. Lower uterine segment was thin, but intact. It was incised in a transverse fashion. Incision was extended laterally with the help of fingers. Membranes were ruptured and clear fluid was obtained. We came across with the baby's face and a nuchal cord around the neck. Head was delivered without difficulty. Nuchal cord was reduced without difficulty. Shoulders were delivered with minimal traction. Baby was delivered. Mouth and nose were suctioned and dried. Cord was clamped x2 and cut at 1 minute delay. Baby was moving and vigorously crying at that point. Baby was handed to the waiting pediatric team, Dr. Betancourt. Placenta was delivered manually and was intact and complete. Uterus was exteriorized and cleared of all clots and debris. This incision was repaired with 0 Vicryl in a running locked fashion. Second imbricating layer was placed with another 0 Vicryl in a running fashion. Excellent hemostasis was achieved. Cul-de-sac was irrigated with warm normal saline and suctioned. Uterus serosa/ culde sac appeared to be normal. Normal fallopian tubes and ovaries were noted. Uterus was returned to the abdomen. Pelvis was irrigated with warm normal saline and suctioned. Incision was checked to be hemostatic again. Parietal peritoneum was reapproximated with 3-0 Vicryl in a running fashion. Rectus muscles were repaired with the same suture in a running fashion, and the rectus muscles and fascia were hemostatic. Rectus fascia was reapproximated with 0 Vicryl in a running fashion. Subcuticular fat tissue was brought together with 3-0 Vicryl in a running fashion. The skin was closed with 4-0 Monocryl in a subcuticular fashion. The patient tolerated the procedure well. Sponge, needle, and instrument count was correct x3. No complications happened and I was present during whole procedure. At the end of the procedure, the patient was taken to the recovery room in stable condition. She was given Cefazolin and Azithromycin before procedure. Job ID: [id number] [facility]
[2022-06-07] MEDS ORDERED: CITRIC ACID/SODIUM CITRATE 15 ML UDC PO SCH (06:00)
[2022-06-07 07:36] LABS: Basophils # (auto) 0.02 K/uL (0-0.2); Basophils % (auto) 0.2 %; Eosinophils # (auto) 0.02 K/uL (0-0.50); Eosinophils % (auto) 0.2 %; Hematocrit (blood only) 22.6 % (34.1-44.9); Hemoglobin 7.6 g/dl (12.0-16.0); Immature Granulocytes # (auto) 0.02 K/uL (0.00-0.02); Immature Granulocytes % (auto) 0.2 %; Lymphocytes # (auto) 1.49 K/uL (1.2-3.4); Lymphocytes % (auto) 18.1 %; Mean Corpuscular Hemoglobin 27.4 pg (25.0-34.0); Mean Corpuscular Hgb Conc 33.6 g/dL (32.0-36.0); Mean Corpuscular Volume 81.6 fL (80.0-100.0); Mean Platelet Volume 9.5 fL (9.4-12.3); Monocytes # (auto) 0.64 K/uL (0.24-0.82); Monocytes % (auto) 7.8 %; Neutrophils # (auto) 6.03 K/uL (1.4-6.5); Neutrophils % (auto) 73.5 %; Platelet Count 169 K/uL (130-400); RDW Coefficient of Variation 13.8 % (11.5-14.5); RDW Standard Deviation 41.5 fL (36.4-46.3); Red Blood Count 2.77 M/uL (3.93-5.22); White Blood Count 8.22 K/ul (4.8-10.8)
[2022-06-07] MEDS ORDERED: IRON SUCROSE 200 MG in 0.9 % SODIUM CHLORIDE 100 ML IV ONE (07:45)
[2022-06-07] MEDS ORDERED: FERROUS SULFATE 325 MG TAB PO SCH (08:00)
[2022-06-07 08:14] LABS: Echinocytes 1+; Hypochromasia Present; Microcytosis Present
[2022-06-07] MEDS: OXYTOCIN 20 UNITS in LACTATED RINGER'S 1,000 ML IV SCH (08:23)
[2022-06-07] MEDS: INSULIN ASPART PER UNIT SC SCH ×2 (08:52→12:10)
[2022-06-07] MEDS ORDERED: FLUARIX QUADRIVALENT 0.5 ML SYR IM ONE (08:58)
--- NOTE | 2022-06-07 08:58 | Obstetrical Progress Note ---
Date of Service June 07, 2022 Assessment & Plan Admission and Anticipated Discharge Date Admission Date: June 06, 2022 Subjective Patient is seen and examined. She feels well, no complaints. Pain is under control . Has not been OOT yet. No dizziness on sitting. Strong is in. Tolerating regular diet with out N&V Flatus + BM neg Bleeding is minimal No fever/ chills/ CP/ SOB/ N&V/ Leg pain Breast feeding without problems. Vital Signs Height Weight Body Mass Index Blood Pressure Blood Pressure Position Temperature Temperature Source 5 ft 3 in 93.44 kg 36.5 116/68 Sitting 36.7 C Oral 06/06/22 15:13 06/06/22 15:13 06/06/22 09:00 06/07/22 08:34 06/07/22 08:34 06/07/22 04:30 06/07/22 04:30 Pulse Rate Respiratory Rate Pulse Oximetry 65 16 97 06/07/22 08:34 06/07/22 06:05 06/07/22 06:05 Intake & Output 06/06/22 06/07/22 06/07/22 22:59 06:59 14:59 Intake Total 942.684 / 3224.367 1255 / 3224.367 1002 / 1002 Output Total 1550 / 3200 950 / 3200 Balance -607.316 / 24.367 305 / 24.367 1002 / 1002 Weight 93.44 kg Intake: IV 942.684 / 3224.367 1255 / 3224.367 1002 / 1002 Azithromycin 500 mg In Dextrose 255 / 255 5% 250 ml @ 127.5 mls/hr IV NOW STA Rx#:[id number] Lactated Ringer's 1,000 ml @ 857.4 / 2857.4 1000 / 2857.4 150 mls/hr IV .Q6H40M PRN Rx#: [id number] Oxytocin 20 units In Lactated 1002 / 1002 Ringer's 1,000 ml @ 125 mls/hr IV .Q8H1M JAMES Rx#:[id number] Oxytocin 30 units In 500 ml @ 0 85.284 / 111.967 0 / 111.967 UNITS/HR IV .Q0M PRN Rx#: [id number] Output: Urine Amount (Catheter) 1550 / 2500 950 / 2500 Strong/Indwelling 1550 / 2500 950 / 2500 Lab Results 06/06/22 06/06/22 06/06/22 Range/Units 09:34 09:34 10:12 WBC 5.36 (4.8-10.8) K/ul RBC 3.44 L (3.93-5.22) M/uL Hgb 9.4 L (12.0-16.0) g/dl Hct 27.3 L (34.1-44.9) % MCV 79.4 L (80.0-100.0) fL MCH 27.3 (25.0-34.0) pg MCHC 34.4 (32.0-36.0) g/dL RDW Std Deviation 40.5 (36.4-46.3) fL RDW Coeff of Km 14.2 (11.5-14.5) % Plt Count 230 (130-400) K/uL MPV 9.9 (9.4-12.3) fL Immature Gran % (Auto) % Neut % (Auto) % Lymph % (Auto) % [place]ath % (Auto) % Eos % (Auto) % Baso % (Auto) % Neut # (Auto) (1.4-6.5) K/uL Lymph # (Auto) (1.2-3.4) K/uL Erath # (Auto) (0.24-0.82) K/uL Eos # (Auto) (0-0.50) K/uL Baso # (Auto) (0-0.2) K/uL Immature Gran # (Auto) (0.00-0.02) K/uL Hypochromasia Microcytosis Echinocytes Sodium (136-145) mmol/L Potassium (3.5-5.1) mmol/L Chloride (98-107) mmol/L Carbon Dioxide (21-32) mmol/L Anion Gap (3-11) BUN (6-23) mg/dl Creatinine (0.6-1.2) mg/dl Est Cr Clr Drug Dosing ml/min Est GFR ( Amer) ml/min Est GFR (Non-Af Amer) ml/min BUN/Creatinine Ratio (10-20) Glucose (70-99(Fasting)) mg/dl POC Glucose 95 (70-99) mg/dl Estimat Average Glucose mg/dl Hemoglobin A1c (4.5-5.6) % Hgb A1c Pathologist Com Calcium (8.5-10.1) mg/dl Total Bilirubin (0.2-1.0) mg/dl AST (13-39) U/L ALT (7-52) U/L Alkaline Phosphatase (34-104) U/L Total Protein (6.0-8.3) gm/dl Albumin (3.4-5.0) gm/dl Globulin (2.5-4.0) gm/dl Albumin/Globulin Ratio (0.9-2) Urine Opiates Screen (Neg) Ur Methadone, Qual (Neg) Urine Barbiturates (Neg) Ur Phencyclidine (PCP) (Neg) U Amphetamin/Meth Scrn (Neg) MDMA (Ecstasy) Screen (Neg) U Benzodiazepines Scrn (Neg) Ur Cocaine Metabolite (Neg) U Marijuana (THC) Screen (Neg) SARS-CoV-2, RNA, NAAT (NEGATIVE) Blood Type O Positive Antibody Screen NEGATIVE Crossmatch See Detail 06/06/22 06/06/22 06/06/22 Range/Units 11:10 11:10 11:15 WBC (4.8-10.8) K/ul RBC (3.93-5.22) M/uL Hgb (12.0-16.0) g/dl Hct (34.1-44.9) % MCV (80.0-100.0) fL MCH (25.0-34.0) pg MCHC (32.0-36.0) g/dL RDW Std Deviation (36.4-46.3) fL RDW Coeff of Km (11.5-14.5) % Plt Count (130-400) K/uL MPV (9.4-12.3) fL Immature Gran % (Auto) % Neut % (Auto) % Lymph % (Auto) % [place] % (Auto) % Eos % (Auto) % Baso % (Auto) % Neut # (Auto) (1.4-6.5) K/uL Lymph # (Auto) (1.2-3.4) K/uL [place]ath # (Auto) (0.24-0.82) K/uL Eos # (Auto) (0-0.50) K/uL Baso # (Auto) (0-0.2) K/uL Immature Gran # (Auto) (0.00-0.02) K/uL Hypochromasia Microcytosis Echinocytes Sodium 137 (136-145) mmol/L Potassium 3.4 L (3.5-5.1) mmol/L Chloride 106 (98-107) mmol/L Carbon Dioxide 25 (21-32) mmol/L Anion Gap 6 (3-11) BUN 5 L (6-23) mg/dl Creatinine 0.60 (0.6-1.2) mg/dl Est Cr Clr Drug Dosing 155.7 ml/min Est GFR ( Amer) 146.8 ml/min Est GFR (Non-Af Amer) 126.7 ml/min BUN/Creatinine Ratio 8.3 L (10-20) Glucose 80 (70-99(Fasting)) mg/dl POC Glucose (70-99) mg/dl Estimat Average Glucose 111 mg/dl Hemoglobin A1c 5.5 (4.5-5.6) % Hgb A1c Pathologist Com Calcium 8.5 (8.5-10.1) mg/dl Total Bilirubin 0.7 (0.2-1.0) mg/dl AST 11 L (13-39) U/L ALT 6 L (7-52) U/L Alkaline Phosphatase 119 H (34-104) U/L Total Protein 6.0 (6.0-8.3) gm/dl Albumin 3.1 L (3.4-5.0) gm/dl Globulin 2.9 (2.5-4.0) gm/dl Albumin/Globulin Ratio 1.1 (0.9-2) Urine Opiates Screen Neg (Neg) Ur Methadone, Qual Neg (Neg) Urine Barbiturates Neg (Neg) Ur Phencyclidine (PCP) Neg (Neg) U Amphetamin/Meth Scrn Neg (Neg) MDMA (Ecstasy) Screen Neg (Neg) U Benzodiazepines Scrn Neg (Neg) Ur Cocaine Metabolite Neg (Neg) U Marijuana (THC) Screen Pos H (Neg) SARS-CoV-2, RNA, NAAT (NEGATIVE) Blood Type Antibody Screen Crossmatch 06/06/22 06/06/22 06/06/22 Range/Units 11:15 12:37 15:45 WBC (4.8-10.8) K/ul RBC (3.93-5.22) M/uL Hgb (12.0-16.0) g/dl Hct (34.1-44.9) % MCV (80.0-100.0) fL MCH (25.0-34.0) pg MCHC (32.0-36.0) g/dL RDW Std Deviation (36.4-46.3) fL RDW Coeff of Km (11.5-14.5) % Plt Count (130-400) K/uL MPV (9.4-12.3) fL Immature Gran % (Auto) % Neut % (Auto) % Lymph % (Auto) % [place] % (Auto) % Eos % (Auto) % Baso % (Auto) % Neut # (Auto) (1.4-6.5) K/uL Lymph # (Auto) (1.2-3.4) K/uL [place]ath # (Auto) (0.24-0.82) K/uL Eos # (Auto) (0-0.50) K/uL Baso # (Auto) (0-0.2) K/uL Immature Gran # (Auto) (0.00-0.02) K/uL Hypochromasia Microcytosis Echinocytes Sodium (136-145) mmol/L Potassium (3.5-5.1) mmol/L Chloride (98-107) mmol/L Carbon Dioxide (21-32) mmol/L Anion Gap (3-11) BUN (6-23) mg/dl Creatinine (0.6-1.2) mg/dl Est Cr Clr Drug Dosing ml/min Est GFR ( Amer) ml/min Est GFR (Non-Af Amer) ml/min BUN/Creatinine Ratio (10-20) Glucose (70-99(Fasting)) mg/dl POC Glucose 77 74 (70-99) mg/dl Estimat Average Glucose mg/dl Hemoglobin A1c (4.5-5.6) % Hgb A1c Pathologist Com Calcium (8.5-10.1) mg/dl Total Bilirubin (0.2-1.0) mg/dl AST (13-39) U/L ALT (7-52) U/L Alkaline Phosphatase (34-104) U/L Total Protein (6.0-8.3) gm/dl Albumin (3.4-5.0) gm/dl Globulin (2.5-4.0) gm/dl Albumin/Globulin Ratio (0.9-2) Urine Opiates Screen (Neg) Ur Methadone, Qual (Neg) Urine Barbiturates (Neg) Ur Phencyclidine (PCP) (Neg) U Amphetamin/Meth Scrn (Neg) MDMA (Ecstasy) Screen (Neg) U Benzodiazepines Scrn (Neg) Ur Cocaine Metabolite (Neg) U Marijuana (THC) Screen (Neg) SARS-CoV-2, RNA, NAAT NEGATIVE (NEGATIVE) Blood Type Antibody Screen Crossmatch 06/06/22 06/07/22 Range/Units 18:04 06:42 WBC 8.22 (4.8-10.8) K/ul RBC 2.77 L (3.93-5.22) M/uL Hgb 7.6 L (12.0-16.0) g/dl Hct 22.6 L (34.1-44.9) % MCV 81.6 (80.0-100.0) fL MCH 27.4 (25.0-34.0) pg MCHC 33.6 (32.0-36.0) g/dL RDW Std Deviation 41.5 (36.4-46.3) fL RDW Coeff of Km 13.8 (11.5-14.5) % Plt Count 169 (130-400) K/uL MPV 9.5 (9.4-12.3) fL Immature Gran % (Auto) 0.2 % Neut % (Auto) 73.5 % Lymph % (Auto) 18.1 % Erath % (Auto) 7.8 % Eos % (Auto) 0.2 % Baso % (Auto) 0.2 % Neut # (Auto) 6.03 (1.4-6.5) K/uL Lymph # (Auto) 1.49 (1.2-3.4) K/uL Erath # (Auto) 0.64 (0.24-0.82) K/uL Eos # (Auto) 0.02 (0-0.50) K/uL Baso # (Auto) 0.02 (0-0.2) K/uL Immature Gran # (Auto) 0.02 (0.00-0.02) K/uL Hypochromasia Present Microcytosis Present Echinocytes 1+ Sodium (136-145) mmol/L Potassium (3.5-5.1) mmol/L Chloride (98-107) mmol/L Carbon Dioxide (21-32) mmol/L Anion Gap (3-11) BUN (6-23) mg/dl Creatinine (0.6-1.2) mg/dl Est Cr Clr Drug Dosing ml/min Est GFR ( Amer) ml/min Est GFR (Non-Af Amer) ml/min BUN/Creatinine Ratio (10-20) Glucose (70-99(Fasting)) mg/dl POC Glucose 118 H (70-99) mg/dl Estimat Average Glucose mg/dl Hemoglobin A1c (4.5-5.6) % Hgb A1c Pathologist Com Calcium (8.5-10.1) mg/dl Total Bilirubin (0.2-1.0) mg/dl AST (13-39) U/L ALT (7-52) U/L Alkaline Phosphatase (34-104) U/L Total Protein (6.0-8.3) gm/dl Albumin (3.4-5.0) gm/dl Globulin (2.5-4.0) gm/dl Albumin/Globulin Ratio (0.9-2) Urine Opiates Screen (Neg) Ur Methadone, Qual (Neg) Urine Barbiturates (Neg) Ur Phencyclidine (PCP) (Neg) U Amphetamin/Meth Scrn (Neg) MDMA (Ecstasy) Screen (Neg) U Benzodiazepines Scrn (Neg) Ur Cocaine Metabolite (Neg) U Marijuana (THC) Screen (Neg) SARS-CoV-2, RNA, NAAT (NEGATIVE) Blood Type Antibody Screen Crossmatch PE: General: Alert, orientedx3, NAD CVS: S1S2 RRR Lungs; CTAB Abd: soft, NT, ND, BS+, fundus firm, below Umbilicus Incision/ Dressing: Clean, dry, intact Perineum intact, Lochia rubra minimal Ext; NT, no edema AP: 26 yo s/p C Section, pod# 1 VSS Afebrile doing well Anemic: on IV iron and continue with PO bid, recheck H&H at 1 pm Depression during and h/o recent admission, agrees with Psych consult today. Continue routine postop care Encourage ambulation, PO intake All questions were answered. Results & Data (MN) Vital Signs (Past 12 Hours) Vital Signs Temp Pulse Pulse Resp BP BP Pulse Ox 06/07/22 08:34 65 116/68 06/07/22 06:05 16 97 06/07/22 05:00 18 98 06/07/22 04:30 36.7 C 18 111/56 L 98 06/07/22 04:09 16 94 06/07/22 03:00 16 97 06/07/22 02:11 18 96 06/07/22 01:06 18 96 06/07/22 00:15 18 96 06/07/22 00:15 06/07/22 00:15 36.7 C 18 137/56 L 96 06/06/22 23:35 36.7 C 18 06/06/22 23:05 18 06/06/22 22:36 18 06/06/22 22:35 18 06/06/22 22:25 18 06/06/22 22:15 18 06/06/22 22:05 18 06/06/22 21:55 18 06/06/22 21:45 18 06/06/22 21:35 36.4 C L 18 06/06/22 23:50 98 06/06/22 23:50 67 06/06/22 23:48 90 06/06/22 23:48 69 06/06/22 23:46 78 06/06/22 23:46 127/60 06/06/22 23:45 99 06/06/22 23:45 78 06/06/22 23:40 98 06/06/22 23:40 68 06/06/22 23:35 97 06/06/22 23:35 66 06/06/22 23:36 76 06/06/22 23:36 137/56 L 06/06/22 23:34 93 06/06/22 23:34 70 06/06/22 23:30 98 06/06/22 23:30 66 06/06/22 23:25 98 06/06/22 23:25 70 06/06/22 23:26 66 06/06/22 23:26 115/57 L 06/06/22 23:20 99 06/06/22 23:20 72 06/06/22 23:15 99 06/06/22 23:15 70 06/06/22 23:16 69 06/06/22 23:16 109/58 L 06/06/22 23:10 99 06/06/22 23:10 71 06/06/22 23:05 98 06/06/22 23:05 77 06/06/22 23:06 74 06/06/22 23:06 111/55 L 06/06/22 23:00 99 06/06/22 23:00 74 06/06/22 22:55 100 06/06/22 22:55 66 06/06/22 22:56 61 06/06/22 22:56 111/53 L 06/06/22 22:50 100 06/06/22 22:50 66 06/06/22 22:47 74 06/06/22 22:47 109/49 L 06/06/22 22:45 99 06/06/22 22:45 72 06/06/22 22:40 99 06/06/22 22:40 74 06/06/22 22:35 98 06/06/22 22:35 73 06/06/22 22:34 92 06/06/22 22:34 76 06/06/22 22:30 100 06/06/22 22:30 71 06/06/22 22:26 92 06/06/22 22:26 72 06/06/22 22:25 99 06/06/22 22:25 72 06/06/22 22:20 100 06/06/22 22:20 72 06/06/22 22:17 85 06/06/22 22:17 117/59 L 06/06/22 22:15 100 06/06/22 22:15 77 06/06/22 22:11 90 06/06/22 22:11 84 06/06/22 22:10 100 06/06/22 22:10 84 06/06/22 22:05 100 06/06/22 22:05 66 06/06/22 22:06 81 06/06/22 22:06 100/55 L 06/06/22 22:03 85 L 06/06/22 22:03 75 06/06/22 22:00 99 06/06/22 22:00 67 06/06/22 21:55 99 06/06/22 21:55 70 06/06/22 21:56 67 06/06/22 21:56 100/50 L 06/06/22 21:54 92 06/06/22 21:54 85 06/06/22 21:50 100 06/06/22 21:50 76 06/06/22 21:45 100 06/06/22 21:45 77 06/06/22 21:46 78 06/06/22 21:46 100/49 L 06/06/22 21:40 99 06/06/22 21:40 80 06/06/22 21:37 72 06/06/22 21:37 95/47 L 06/06/22 21:35 99 06/06/22 21:35 77 O2 Del Method 06/07/22 08:34 06/07/22 06:05 06/07/22 05:00 06/07/22 04:30 Room Air 06/07/22 04:09 06/07/22 03:00 06/07/22 02:11 06/07/22 01:06 06/07/22 00:15 06/07/22 00:15 Room Air 06/07/22 00:15 Room Air 06/06/22 23:35 06/06/22 23:05 06/06/22 22:36 06/06/22 22:35 06/06/22 22:25 06/06/22 22:15 06/06/22 22:05 06/06/22 21:55 06/06/22 21:45 06/06/22 21:35 06/06/22 23:50 06/06/22 23:50 06/06/22 23:48 06/06/22 23:48 06/06/22 23:46 06/06/22 23:46 06/06/22 23:45 06/06/22 23:45 06/06/22 23:40 06/06/22 23:40 06/06/22 23:35 06/06/22 23:35 06/06/22 23:36 06/06/22 23:36 06/06/22 23:34 06/06/22 23:34 06/06/22 23:30 06/06/22 23:30 06/06/22 23:25 06/06/22 23:25 06/06/22 23:26 06/06/22 23:26 06/06/22 23:20 06/06/22 23:20 06/06/22 23:15 06/06/22 23:15 06/06/22 23:16 06/06/22 23:16 06/06/22 23:10 06/06/22 23:10 06/06/22 23:05 06/06/22 23:05 06/06/22 23:06 06/06/22 23:06 06/06/22 23:00 06/06/22 23:00 06/06/22 22:55 06/06/22 22:55 06/06/22 22:56 06/06/22 22:56 06/06/22 22:50 06/06/22 22:50 06/06/22 22:47 06/06/22 22:47 06/06/22 22:45 06/06/22 22:45 06/06/22 22:40 06/06/22 22:40 06/06/22 22:35 06/06/22 22:35 06/06/22 22:34 06/06/22 22:34 06/06/22 22:30 06/06/22 22:30 06/06/22 22:26 06/06/22 22:26 06/06/22 22:25 06/06/22 22:25 06/06/22 22:20 06/06/22 22:20 06/06/22 22:17 06/06/22 22:17 06/06/22 22:15 06/06/22 22:15 06/06/22 22:11 06/06/22 22:11 06/06/22 22:10 06/06/22 22:10 06/06/22 22:05 06/06/22 22:05 06/06/22 22:06 06/06/22 22:06 06/06/22 22:03 06/06/22 22:03 06/06/22 22:00 06/06/22 22:00 06/06/22 21:55 06/06/22 21:55 06/06/22 21:56 06/06/22 21:56 06/06/22 21:54 06/06/22 21:54 06/06/22 21:50 06/06/22 21:50 06/06/22 21:45 06/06/22 21:45 06/06/22 21:46 06/06/22 21:46 06/06/22 21:40 06/06/22 21:40 06/06/22 21:37 06/06/22 21:37 06/06/22 21:35 06/06/22 21:35
[2022-06-07] MEDS: DOCUSATE SODIUM 100 MG CAP PO SCH ×2 (09:01→20:16)
[2022-06-07] MEDS: SERTRALINE HCL 50 MG TABLET PO SCH ×3 (09:01→20:17)
[2022-06-07] MEDS: SIMETHICONE 80 MG CHEW PO SCH ×4 (09:01→20:16)
[2022-06-07] MEDS: PRENATAL VITAMIN 1 TAB PO SCH (09:01)
[2022-06-07] MEDS: FERROUS SULFATE 325 MG TAB PO SCH ×2 (09:01→20:16)
--- NOTE | 2022-06-07 12:20 | Psychiatric Consultation ---
Date of Consultation June 07, 2022 Impression / Recommendations Impression 26 yo woman with history of PPD and recent inpatient psychiatry admission seen for consult following delivery of her son. Her mood is stable and she is doing well. Acute risk of self-harm is low given denial of SI, future oriented, improvement in mood/mood stability and adjusting and bonding well with her son. She has outpatient providers and desires no further supports, prefers to reschedule appointments on her own once she has a sense of when she's ready to engage with these providers in the coming weeks as she recovers from her C- section. (1) Post traumatic stress disorder (PTSD): Plan -Continue sertraline 50mg qhs, if depression re-emerges or further mood benefits desires could increase to 100mg qhs in 1-2 weeks -If vivid dreams re-occur or become intolerable would recommend discontinuation of sertraline in favor of trial of fluoxetine 20mg qd or escitalopram 10mg qd (both have some small studies to suggest reasonable safety profile when breast feeding). -Has outpt CM, plans to establish with previous referral for outpt psychiatrist and therapist Risk Factors Assessment Do You Have Access To A Gun?: No Psych History Identifying Data 26 yo woman s/p admitted to [facility]. Psychiatry consulted for history of post depression and recent inpatient psychiatry admission. Chief Complaint "I feel good". History of Present Illness Heller is known to me from her recent inpatient admission at [facility] for inpatient psychiatry from 05/18/22-05/20/22 for depression and SI. Since d ischarge she states she has been doing well with no further recent nor current SI. Her mood has been improving and she notes that today she feels "good". She also "feels a lot better" now that she has delivered her son as she had developed more pain toward the end of this . She has remained in contact with her mental health sample case porter and plans to reschedule her psychiatry appointment with [facility] and therapy intake at [facility] once she has recovered from her and adjusted to being home with her . She knows how to reschedule these appointments as she had to cancel the prior appointments due to conflicts with OB appointments and admissions to the OB service due to concerns for pre-labor. She likes the sertraline though did have one vivid dream that was violent and upsetting but she has continued to take it every night and would like to remain on this. Wonders about when a dose increase would be warranted/when she should start to see the full benefit which we reviewed and she was appreciative of option for me to provide some recommendations her outpatient providers could follow in the coming weeks if needed. For now she likes the medication, sertraline 50mg qhs, as it is and feels well supported by her current outpatient services. She denies any other concerns nor questions. Past Psychiatric History Outpatient Services: see HPI Previous Psych Admissions: see HPI Do You Have Access To A Gun?: No Allergies Allergy/AdvReac Type Severity Reaction Status Date / Time bee venom protein (honey bee) Allergy Severe Anaphylaxis Verified 06/06/22 08:54 bacitracin Allergy Intermediate Rash Verified 06/06/22 08:54 Home Medications Medication Instructions Recorded Confirmed Type vits no.124-ferrous fum 1 tab PO QAM #1 tab 05/20/22 06/06/22 Rx 27 mg iron-folic acid 800 mcg tablet ( Vitamin) ondansetron HCl 4 mg tablet 4 mg PO DAILY PRN nausea and 05/22/22 06/06/22 Rx vomiting 14 days #30 tabs ferrous sulfate 325 mg (65 mg 325 mg PO HS 05/29/22 06/06/22 History iron) tablet,delayed release iron,carbonyl 65 mg-vitamin C 125 1 tab PO QAM 05/29/22 06/06/22 History mg tablet,delayed release (Vitron-C) sertraline 50 mg tablet 50 mg PO HS MDD 05/29/22 06/06/22 History Personal History Beliefs That Will Affect Care: None Patient History Medical History Anxiety Depression with suicidal ideation hx + recent inpatient stay at [facility] in may 2022. Gestational diabetes currently: monitoring and diet controlled at this time. Heart murmur pt. states she had appt. with biophysics professor in 2016, none since. does complain of the occasional chest pain, states her past biophysics professor ([facility]) related the occasional chest pain to the the cardiac murmur. Heartburn diet controlled (during ) History of COVID-19 December/January 2022. mild cold symptoms. no current problems History of depression History of recent hospitalization inpatient psych stay at [facility] earlier in May 2022. Marijuana smoker last used April 2022 MDD (major depressive disorder), recurrent episode Post traumatic stress disorder Scoliosis mild - no treatments Surgical History H/O wisdom tooth extraction History of section Status post surgery nexplanon removal with sedation Family History Mother FH: brain aneurysm Grandmother (Maternal) Lung cancer metastatic to brain Grandfather (Paternal) Lung cancer Social History Smoking Status: Never smoker Second Hand Exposure: No; Do You Dip or Chew Tobacco: No; Tobacco Cessation Education Requested by Patient: No Hx Alcohol Use: No Hx Substance Use: Yes Prescribed Medications: Marijuana Last Used Substance Other:: April 2022 Substance Use Type Other:: listed on but patient denies Preferred Language: Amharic Communication Ability: Effective Visual Impairment: No Limitations Hearing Ability: Normal Auto Inspection Specialist Required: No Beliefs That Will Affect Care: None marital status: Single Current Living Situation: Family Current Living Situation Comment: daughter (2yo). current occupational status: employed and unemployed Other Information That Helps Us Care for You: No Feels Safe at Home: Yes Safety Concerns: Feels Safe At This Time Gender Identity: Female Assistive Devices: None Physical Exam Psychiatric: Orientation: alert and oriented x 3 Apperance: appropriately dressed and appropriately groomed Eye Contact: good eye contact Motor Behavior: no abnormal motor movements Speech: normal rate/rhythm/volume of speech Affect: euthymic affect Mood: no depressed mood and no anxious mood Thought Process: linear/logical thought process Thought Content: reality based without delusions Suicidal Thoughts: denies suicidal thoughts Homicidal Thoughts: denies homicidal thoughts Hallucinations: no auditory hallucinations and no visual hallucinations Cognition: recent memory grossly intact, remote memory grossly intact, attention grossly intact and language grossly intact Estimated Intelligence: consistent with education level Insight: + fair insight Judgement: + fair judgement Vital Signs (Past 24 Hours): Last Vital Signs Temp 36.4 C L 06/07/22 07:23 Pulse 65 06/07/22 08:34 Resp 18 06/07/22 11:00 BP 116/68 06/07/22 08:34 Pulse Ox 98 06/07/22 11:00 O2 Del Method 06/07/22 07:23 Review of Systems All systems reviewed & are unremarkable except as noted in HPI & below Results & Data (PSY) Medications Administered Diphenhydramine HCl (Diphenhydramine 50 Mg/Ml Vial) 25 mg IV Q6H PRN PRN Reason: Itching Stop: 06/07/22 14:57 Last Admin: 06/07/22 00:23 Dose: 25 mg Documented By: CT Docusate Sodium (Docusate Sodium 100 Mg Cap) 100 mg PO DAILY@ JAMES Stop: 07/07/22 07:59 Last Admin: 06/07/22 09:01 Dose: 100 mg Documented By: EDGE BRUSHER Ferrous Sulfate (Ferrous Sulfate 325 Mg Tab) 325 mg PO BID JAMES Stop: 07/07/22 08:59 Last Admin: 06/07/22 09:01 Dose: 325 mg Documented By: MERRY Lactated Ringer's (Lr) 1,000 mls @ 150 mls/hr IV .Q6H40M PRN; Protocol PRN Reason: L&D Protocol Stop: 06/08/22 08:43 Last Infusion: 06/06/22 23:09 Dose: 0 mls/hr Documented By: Admin: 06/06/22 19:44 Dose: 999 mls/hr Documented By: Infusion: 06/06/22 19:44 Dose: 999 mls/hr Documented By: Infusion: 06/06/22 19:38 Dose: 999 mls/hr Documented By: Infusion: 06/06/22 19:10 Dose: 150 mls/hr Documented By: Admin: 06/06/22 14:35 Dose: 150 mls/hr Documented By: Infusion: 06/06/22 14:35 Dose: 999 mls/hr Documented By: Infusion: 06/06/22 14:15 Dose: 999 mls/hr Documented By: Admin: 06/06/22 09:45 Dose: 150 mls/hr Documented By: JHONNY Oxytocin (Pitocin) 30 units in 500 mls @ 0 mls/hr IV .Q0M PRN; Protocol PRN Reason: Labor Induction/Augmentation Stop: 06/08/22 08:47 Last Titration: 06/06/22 23:09 Dose: 0 units/hr, 0 mls/hr Documented By: Titration: 06/06/22 20:18 Dose: 0 units/hr, 0 mls/hr Documented By: Titration: 06/06/22 19:38 Dose: 0.6 units/hr, 10 mls/hr Documented By: Titration: 06/06/22 19:10 Dose: 1.14 units/hr, 19 mls/hr Documented By: Titration: 06/06/22 18:30 Dose: 1.14 units/hr, 19 mls/hr Documented By: Titration: 06/06/22 18:00 Dose: 1.02 units/hr, 17 mls/hr Documented By: Titration: 06/06/22 17:30 Dose: 0.9 units/hr, 15 mls/hr Documented By: Titration: 06/06/22 17:00 Dose: 0.9 units/hr, 15 mls/hr Documented By: Titration: 06/06/22 16:00 Dose: 0.78 units/hr, 13 mls/hr Documented By: Titration: 06/06/22 15:00 Dose: 0.78 units/hr, 13 mls/hr Documented By: Titration: 06/06/22 14:25 Dose: 0.78 units/hr, 13 mls/hr Documented By: Titration: 06/06/22 13:37 Dose: 0.66 units/hr, 11 mls/hr Documented By: Titration: 06/06/22 13:00 Dose: 0.54 units/hr, 9 mls/hr Documented By: Titration: 06/06/22 12:30 Dose: 0.42 units/hr, 7 mls/hr Documented By: Titration: 06/06/22 12:00 Dose: 0.42 units/hr, 7 mls/hr Documented By: Titration: 06/06/22 11:20 Dose: 0.3 units/hr, 5 mls/hr Documented By: Titration: 06/06/22 10:50 Dose: 0.18 units/hr, 3 mls/hr Documented By: Admin: 06/06/22 10:20 Dose: 0.06 units/hr, 1 mls/hr Documented By: JHONNY Co-signed By: TRACI Sodium Chloride (Nss 1000ml) 1,000 mls @ 15 mls/hr IV .Q24H [facility] Stop: 06/07/22 14:57 Last Admin: 06/07/22 01:30 Dose: Not Given Documented By: CT Oxytocin 20 units/ Lactated (Ringer's) 1,002 mls @ 125 mls/hr IV .Q8H1M [facility] Stop: 06/07/22 13:31 Last Admin: 06/07/22 08:23 Dose: 125 mls/hr Documented By: EDGE BRUSHER Co-signed By: SAM Infusion: 06/07/22 07:54 Dose: 125 mls/hr Documented By: EDGE BRUSHER Co-signed By: SAM Admin: 06/06/22 23:53 Dose: 125 mls/hr Documented By: CT Co-signed By: CNO Ketorolac Tromethamine (Ketorolac 30 Mg/Ml Vial) 30 mg IV Q6H PRN PRN Reason: Breakthrough Surgical Pain Stop: 06/07/22 14:57 Last Admin: 06/07/22 00:24 Dose: 30 mg Documented By: CT Nalbuphine HCl (Nalbuphine Hcl Inj 10 Mg/Ml Amp) 5 mg IV Q10M PRN PRN Reason: Itching Stop: 06/07/22 14:57 Last Admin: 06/07/22 02:04 Dose: 5 mg Documented By: LINNETTE Prenat Multivit/Ralls/Iron/Folic Ac ( Vitamin 1 Tab) 1 tab PO DAILY@08 [facility] Stop: 07/07/22 07:59 Last Admin: 06/07/22 09:01 Dose: 1 tab Documented By: MERRY Simethicone (Simethicone 80 Mg Chew) 80 mg PO DAILY@08,13,17,21 [facility] Stop: 07/07/22 07:59 Last Admin: 06/07/22 09:01 Dose: 80 mg Documented By: EDGE BRUSHER Coding Level of Care Code 01457 Inpt Consult Level 2 Diagnoses Post traumatic stress disorder (PTSD) F43.10
[2022-06-07 13:14] LABS: Hematocrit (blood only) 23.2 % (34.1-44.9)
[2022-06-07] MEDS: IBUPROFEN 600 MG TAB PO PRN ×2 (13:32→20:52)
[2022-06-07] MEDS ORDERED: diphenhydrAMINE 50 MG/ML VIAL IV PRN (14:58)
[2022-06-07] MEDS ORDERED: KETOROLAC 30 MG/ML VIAL IV PRN (14:58)
[2022-06-07] MEDS ORDERED: MEPERIDINE HCL 50 MG/ML CARP IV PRN (14:58)
[2022-06-07] MEDS ORDERED: diphenhydrAMINE Capsule 25 MG CAP PO PRN (14:58)
[2022-06-07] MEDS ORDERED: PROMETHAZINE HCL 25 MG in SODIUM CHLORIDE 0.9% 50 ML IV PRN (14:58)
[2022-06-07] MEDS ORDERED: ONDANSETRON INJ 2 MG/ML 2 ML VIAL IV PRN (14:58)
[2022-06-07] MEDS ORDERED: bisacodyL 5 MG TABEC PO SCH (20:00)
[2022-06-07] MEDS ORDERED: TERBUTALINE SULFATE 1 MG/ML VIAL ONE (20:09)
[2022-06-07] MEDS: oxyCODONE/ACETAMINOPHEN 5mg/325mg TAB PO PRN (23:23)
[2022-06-08] MEDS ORDERED: bisacodyL 10 MG SUPP PR PRN
[2022-06-08 05:01] LABS: Marijuana Quant, GCMS Urine 17 ng/mL (<5)
[2022-06-08 06:27] LABS: Hematocrit (blood only) 24.2 % (34.1-44.9); Hemoglobin 8.1 g/dl (12.0-16.0)
--- NOTE | 2022-06-08 08:26 | Obstetrical Progress Note ---
Date of Service June 08, 2022 Subjective Ambulation: ambulating normally Voiding: no voiding problems Passing Gas:: Yes Diet Tolerance:: regular diet Lochia:: Small Feeding Type:: breast feeding Current Pain Level(1-10): 8 doing well OOB OK Physical Exam Constitutional WD/WN, vitals as above Gastrointestinal (Abdomen) Inspection/Auscultation: abdomen normal to inspection and + abdominal surgical incision incision c/d/i abdomen soft and non-tender. fundus firm below U Musculoskeletal Extremities: extremities normal to inspection Skin no rashes, warm and dry Neurologic patellar DTR's 2+ bilat, sensation intact Psychiatric A+Ox3, euthymic affect Results & Data ([facility]) Vital Signs (Past 12 Hours) Vital Signs Temp Pulse Resp BP BP Pulse Ox O2 Del Method 06/07/22 22:56 36.8 C 73 18 113/65 95 Room Air 06/07/22 20:30 36.8 C 68 18 125/74 98 Room Air Laboratory Results Laboratory Results - last 24 hr 06/06/22 06/06/22 06/07/22 09:34 11:15 12:07 Hgb Hct POC Glucose 102 H U Marijuana THC Carboxy 17 H Drug Screen Comment SEE NOTE Hepatitis C Ab (EIA) NON-REACTIVE Hep C Ab Signal/Cutoff <0.02 06/07/22 06/08/22 12:48 06:02 Hgb 8.0 L 8.1 L Hct 23.2 L 24.2 L POC Glucose U Marijuana THC Carboxy Drug Screen Comment Hepatitis C Ab (EIA) Hep C Ab Signal/Cutoff
[2022-06-08] MEDS: IBUPROFEN 600 MG TAB PO PRN ×3 (09:41→23:46)
[2022-06-08] MEDS: SIMETHICONE 80 MG CHEW PO SCH ×4 (09:42→20:00)
[2022-06-08] MEDS: PRENATAL VITAMIN 1 TAB PO SCH (09:42)
[2022-06-08] MEDS: DOCUSATE SODIUM 100 MG CAP PO SCH ×2 (09:43→20:00)
[2022-06-08] MEDS: FERROUS SULFATE 325 MG TAB PO SCH ×2 (09:43→20:01)
[2022-06-08] MEDS: oxyCODONE/ACETAMINOPHEN 5mg/325mg TAB PO PRN ×3 (10:35→23:46)
[2022-06-08] MEDS: SERTRALINE HCL 50 MG TABLET PO SCH (20:01)
[2022-06-09] MEDS: oxyCODONE/ACETAMINOPHEN 5mg/325mg TAB PO PRN ×3 (05:36→21:18)
[2022-06-09] MEDS: IBUPROFEN 600 MG TAB PO PRN ×4 (05:36→21:17)
[2022-06-09] MEDS: DOCUSATE SODIUM 100 MG CAP PO SCH ×2 (08:14→21:17)
[2022-06-09] MEDS: FERROUS SULFATE 325 MG TAB PO SCH ×2 (08:14→22:24)
[2022-06-09] MEDS: SIMETHICONE 80 MG CHEW PO SCH ×4 (08:14→21:17)
[2022-06-09] MEDS: PRENATAL VITAMIN 1 TAB PO SCH (08:14)
--- NOTE | 2022-06-09 11:30 | Obstetrical Progress Note ---
Date of Service June 09, 2022 Subjective Ambulation: ambulating normally Voiding: no voiding problems Passing Gas:: Yes Diet Tolerance:: regular diet Feeding Type:: breast feeding Current Pain Level(1-10): 0 doing well wants to stay for one more day Physical Exam Constitutional WD/WN, vitals as above Gastrointestinal (Abdomen) Inspection/Auscultation: abdomen normal to inspection and + abdominal surgical incision incision c/d/i Musculoskeletal Extremities: extremities normal to inspection Skin no rashes, warm and dry Neurologic patellar DTR's 2+ bilat, sensation intact Psychiatric A+Ox3, euthymic affect Results & Data ([facility]) Laboratory Results Laboratory Results - last 72 hr 06/06/22 06/06/22 06/06/22 09:34 11:10 11:15 WBC RBC Hgb Hct MCV MCH MCHC RDW Std Deviation RDW Coeff of Km Plt Count MPV Immature Gran % (Auto) Neut % (Auto) Lymph % (Auto) Wake % (Auto) Eos % (Auto) Baso % (Auto) Neut # (Auto) Lymph # (Auto) Wake # (Auto) Eos # (Auto) Baso # (Auto) Immature Gran # (Auto) Hypochromasia Microcytosis Echinocytes POC Glucose Estimat Average Glucose 111 Hemoglobin A1c 5.5 Hgb A1c Pathologist Com U Marijuana THC Carboxy 17 H Drug Screen Comment SEE NOTE Hepatitis C Ab (EIA) NON-REACTIVE Hep C Ab Signal/Cutoff <0.02 06/06/22 06/06/22 06/06/22 12:37 15:45 18:04 WBC RBC Hgb Hct MCV MCH MCHC RDW Std Deviation RDW Coeff of Km Plt Count MPV Immature Gran % (Auto) Neut % (Auto) Lymph % (Auto) Wake % (Auto) Eos % (Auto) Baso % (Auto) Neut # (Auto) Lymph # (Auto) Wake # (Auto) Eos # (Auto) Baso # (Auto) Immature Gran # (Auto) Hypochromasia Microcytosis Echinocytes POC Glucose 77 74 118 H Estimat Average Glucose Hemoglobin A1c Hgb A1c Pathologist Com U Marijuana THC Carboxy Drug Screen Comment Hepatitis C Ab (EIA) Hep C Ab Signal/Cutoff 06/07/22 06/07/22 06/07/22 06:42 12:07 12:48 WBC 8.22 RBC 2.77 L Hgb 7.6 L 8.0 L Hct 22.6 L 23.2 L MCV 81.6 MCH 27.4 MCHC 33.6 RDW Std Deviation 41.5 RDW Coeff of Km 13.8 Plt Count 169 MPV 9.5 Immature Gran % (Auto) 0.2 Neut % (Auto) 73.5 Lymph % (Auto) 18.1 Wake % (Auto) 7.8 Eos % (Auto) 0.2 Baso % (Auto) 0.2 Neut # (Auto) 6.03 Lymph # (Auto) 1.49 Wake # (Auto) 0.64 Eos # (Auto) 0.02 Baso # (Auto) 0.02 Immature Gran # (Auto) 0.02 Hypochromasia Present Microcytosis Present Echinocytes 1+ POC Glucose 102 H Estimat Average Glucose Hemoglobin A1c Hgb A1c Pathologist Com U Marijuana THC Carboxy Drug Screen Comment Hepatitis C Ab (EIA) Hep C Ab Signal/Cutoff 06/08/22 06:02 WBC RBC Hgb 8.1 L Hct 24.2 L MCV MCH MCHC RDW Std Deviation RDW Coeff of Km Plt Count MPV Immature Gran % (Auto) Neut % (Auto) Lymph % (Auto) Wake % (Auto) Eos % (Auto) Baso % (Auto) Neut # (Auto) Lymph # (Auto) Wake # (Auto) Eos # (Auto) Baso # (Auto) Immature Gran # (Auto) Hypochromasia Microcytosis Echinocytes POC Glucose Estimat Average Glucose Hemoglobin A1c Hgb A1c Pathologist Com U Marijuana THC Carboxy Drug Screen Comment Hepatitis C Ab (EIA) Hep C Ab Signal/Cutoff
[2022-06-09] MEDS: SERTRALINE HCL 50 MG TABLET PO SCH (22:24)
[2022-06-10] MEDS: PRENATAL VITAMIN 1 TAB PO SCH (07:45)
[2022-06-10] MEDS: FERROUS SULFATE 325 MG TAB PO SCH (07:45)
[2022-06-10] MEDS: SIMETHICONE 80 MG CHEW PO SCH ×2 (07:45→13:07)
[2022-06-10] MEDS: DOCUSATE SODIUM 100 MG CAP PO SCH (07:45)
[2022-06-10] MEDS: IBUPROFEN 600 MG TAB PO PRN ×2 (07:45→13:07)
--- NOTE | 2022-06-10 09:09 | Obstetrical Progress Note ---
Date of Service June 10, 2022 Assessment & Plan (1) delivery delivered: c/sec day #3 pt doing well d/c home with instructions Subjective Ambulation: ambulating normally Voiding: no voiding problems Passing Gas:: Yes Diet Tolerance:: clear liquids Lochia:: Small Feeding Type:: breast feeding Review of Systems All systems reviewed & are unremarkable except as noted in HPI & below Physical Exam Constitutional WD/WN, vitals as above well developed and well nourished Eyes PERRL, conjunctivae normal, anicteric sclerae ENMT external ear and nose normal, oropharynx normal Neck trachea midline, no thyromegaly Respiratory normal respiratory effort, lungs clear to auscultation Cardiovascular RRR, no murmur, no edema Chest (Breasts) normal inspection/palpation of breasts Gastrointestinal (Abdomen) normal bowel sounds, soft, nontender, no hepatosplenomegaly Musculoskeletal no cyanosis or clubbing, extremities motor strength 5/5 Skin no rashes, warm and dry + incision (Clean,dry and intact) Neurologic patellar DTR's 2+ bilat, sensation intact Psychiatric A+Ox3, euthymic affect Genitourinary normal external appearance Lymphatic no cervical or axillary lymphadenopathy Results & Data ([facility]) Vital Signs (Past 12 Hours) Vital Signs Temp Pulse Resp BP Pulse Ox O2 Del Method 06/10/22 07:47 36.7 C 74 16 129/85 99 Room Air 06/09/22 23:35 36.7 C 67 18 110/70 98 Room Air
--- NOTE | 2022-06-15 04:52 | Discharge Summary (DS) ---
DATE OF ADMISSION: 06/06/2022. DATE OF DISCHARGE: 06/10/2022. DETAILS OF ADMISSION: The patient is a 26-year-old G2, P1-0-0-1, at 40 weeks of gestation with history of prior section and favorable cervix and desires trial of labor after section/vaginal after section. She understood the risks of uterine rupture, blood loss, hypoxia, and even . Signed an informed consent for trial of labor after section/vaginal after section. Vital signs were stable. heart rate was reassuring. Cervix was favorable. GBS was negative. She had received Strong balloon for mechanical dilatation and then started on low- dose Pitocin per protocol. heart rate was category 1. During labor, her Strong bulb came out. It was found to be in the vagina in the afternoon when her cervix was 4 cm dilated and artificial rupture of membranes was done and clear fluid was obtained. Contractions were every 1-2 minutes. Then later in the evening, the patient was found to be 5 cm dilated, 50% effaced, -2 station. heart rate was reassuring at category 1 and then she was checked to be again same with no change in cervix despite adequate uterine contractions. FHR started to have prolonged decelerations as well. The patient was recommended repeat section due to arrest of dilatation in active phase of labor and persistent occiput posterior, and Categoy II strip. She agreed and signed an informed consent. She was taken to the operating room where she delivered a viable male infant, Apgars were 8/8 via repeat section. Her surgery was uncomplicated. See dictated op note for details. On postop period, the patient was doing well, vital signs stable, afebrile. Urine output was good. Incision was clean, dry and intact. Pain was under control. On postoperative day #1, the patient was doing well, vital signs stable, afebrile, passing gas, voiding without difficulty, tolerating regular diet, . Physical exam was unremarkable. Incision was clean, dry and intact. Her H and H was 8/23.2. She also saw psychiatry for consultation for history of depression and posttraumatic stress disorder. She has been on sertraline 50 mg and recommended to increase to 100 mg 1-2 weeks. See their dictated notes for details. On postoperative day #2, the patient was doing well, vital signs stable, afebrile. Physical exam was unremarkable. Repeat H and H was 03/26. On postoperative day #3, the patient was doing well, vital signs stable, afebrile, tolerating regular diet, passing gas, moving her bowels, . Physical exam was unremarkable and H and H was stable. She was discharged home on postoperative day #[address] Nuno. Discharge instructions were given. Prescriptions were written for pain. She is to be seen in the office in a week. Job ID: [id number] [facility]
== END 2022-06-10 14:30 | disposition home or self-care (01) | DRG 787 ==
LOC: EDSTATUS 07:30 → 4S1 06-06 08:32 → 4E2 06-07 00:18